=== PATIENT | female | born 1970 ===

== ENCOUNTER 2020-07-04 12:03 | Outpatient (REF) | payer OTHER, SELFPAY ==
--- NOTE | 2020-07-04 12:07 | MM_ITS ---
EXAMINATION: MM SCREENING DIGITAL BREAST TOMOSYNTHESIS, BILATERAL CLINICAL INFORMATION: Screening. Asymptomatic. The lifetime risk of breast cancer based on the Tyrer-Cuzick Model is 7%. COMPARISON: Mammography: 06/29/2019, 06/06/2018 TECHNIQUE: Digital breast tomosynthesis is performed in both the craniocaudal and mediolateral oblique views along with computer-aided detection (CAD). Synthesized 2D images are generated from the tomosynthesis. FINDINGS: There are scattered areas of fibroglandular density (ACR BI-RADS breast composition Category b). There are no significant masses, abnormal calcifications, or other abnormalities. The axilla and skin contours are unremarkable. No significant changes from prior studies. MM/MM tomosynthesis screening BI IMPRESSION: No mammographic evidence of malignancy. ASSESSMENT: BI-RADS 1: Negative RECOMMENDATION: Routine annual mammography screening. This patient's information was entered into a reminder system with a target due date for their next mammogram.
== END 2020-07-04 12:04 | disposition home or self-care (01) ==
LOC: HO.MAMMO 12:03
PROVIDERS: PCP Pediatrics; Visit Provider Pediatrics
DX: Z12.31 Encounter for screening mammogram for malignant neoplasm of breast (principal)
CPT/HCPCS: 77063; 77067

== ENCOUNTER 2021-06-20 16:15 | Emergency (ER) | payer OTHER, SELFPAY ==
[2021-06-20 16:28] VITALS: BP 130/68; PULSE 65; RESP 20; TEMP 36.8; O2SAT 98; BMI 28.7
--- NOTE | 2021-06-20 16:36 | PC.NURSE ---
patient was brought in by ems, unknown ems service- pt was sent to [facility] to be triaged- EMS did not give this triage nurse report.
== END 2021-06-20 21:00 | disposition left against medical advice (07) ==
PROVIDERS: Emergency Provider Emergency Medicine
DX: R10.9 Unspecified abdominal pain (principal)
CPT/HCPCS: 99281; 99282

== ENCOUNTER 2021-06-28 01:38 | Emergency (ER) | payer OTHER, SELFPAY ==
--- NOTE | 2021-06-28 | ECG_ITS ---
Test Reason : ABD PAIN Blood Pressure : / mmHG Vent. Rate : 053 BPM Atrial Rate : 053 BPM P-R Int : 162 ms QRS Dur : 082 ms QT Int : 492 ms P-R-T Axes : 055 063 049 degrees QTc Int : 461 ms Sinus bradycardia RSR' or QR pattern in V1 suggests right ventricular conduction delay Otherwise normal ECG No previous ECGs available Referred By: Catie Hernandez Electronically Signed By:NARGIS MARTI MD
--- NOTE | ~2021-06-28 | CT_ITS ---
EXAMINATION: CT ABDOMEN AND PELVIS WITH CONTRAST CLINICAL INFORMATION: Diffuse abdominal pain COMPARISON: None TECHNIQUE: Multidetector volumetric images were obtained from the superior aspect of the liver through the pubic symphysis following administration 85 mL of Omnipaque 350 intravenous contrast. Sagittal and coronal reformatted images were obtained on the technologist's workstation. Oral contrast: No This CT examination was performed using dose optimization techniques as appropriate, variously including the following: *Automated exposure control *Adjustment of mA and/or kV according to patient size (this includes techniques or standardized protocols for targeted exams where dose is matched to indication/reason for exam; i.e. extremities or head) *Use of iterative reconstruction technique DLP: 849 mGy-cm FINDINGS: LUNG BASES: The visualized lung bases are unremarkable. LIVER, GALLBLADDER, AND BILIARY TREE: The liver is normal in size, shape, and attenuation. No focal hepatic lesion or biliary ductal dilatation is present. Patient is status post cholecystectomy. PANCREAS: Partially atrophic. SPLEEN: Unremarkable. ADRENAL GLANDS: Unremarkable. KIDNEYS AND URETERS: The kidneys are normal in size, shape, and attenuation. No hydronephrosis, hydroureter, or obstructing calculi seen. No perinephric stranding. BLADDER: Unremarkable. GASTROINTESTINAL TRACT: Postoperative changes from gastric bypass surgery. No evidence of bowel obstruction. Assessment for wall thickening in some segments of the colon is limited due to luminal collapse, though no significant pericolonic stranding is seen to strongly suggest a colitis. The appendix is unremarkable. No free fluid or free air is seen. ABDOMINAL WALL: No significant hernia is appreciated. LYMPH NODES: Normal. VASCULAR: Minimal atherosclerotic calcifications are noted. PELVIC VISCERA: Unremarkable. OSSEOUS STRUCTURES: There is facet arthropathy of the lower lumbar spine. CT/CT abdomen pelvis w con IMPRESSION: No acute findings identified in the abdomen/pelvis. Status post gastric bypass surgery.
[2021-06-28 01:41] VITALS: BP 140/90; BP 147/82; PULSE 63; PULSE 70; RESP 18; TEMP 36.5; O2SAT 100; O2SAT 99; BMI 29.8
--- NOTE | 2021-06-28 01:58 | ED.ABDPAIN ---
HPI - Abdominal Pain General Chief Complaint: Abdominal Pain Stated Complaint: vomiting/abd pain Time Seen by Provider: 06/28/21 01:51 Source: patient and EMS Mode of arrival: EMS Limitations: no limitations History of Present Illness HPI narrative: Patient comes emergency room complaining of epigastric pain 10/10, nausea, vomiting, pain started approximately 7 hours ago. Patient states that she has history of gastric bypass which was done in [facility] over 20 years ago. Patient also states that she has a hernia, unclear the location, states she has an appointment pending with Dr. Rosario for next week. Patient denies using marijuana, denies using alcohol. Related Data Previous Rx's Medication Instructions Recorded ondansetron HCl 4 mg tablet 4 mg PO Q6H PRN #14 tab 06/28/21 (Zofran) Allergies Allergy/AdvReac Type Severity Reaction Status Date / Time ibuprofen [From Motrin] Allergy Intermediate RASH Verified 06/28/21 02:10 Motrin Allergy Intermediate Rash Uncoded 06/28/21 02:10 Review of Systems Review of Systems Constitutional : No Weight loss, No Fever, No Chills, No Night Sweats, No Fatigue, No Malaise ENT/Mouth : No Hearing loss, No Ear Pain, No Nasal Congestion, No Sinus Pain, No Hoarseness, No sore throat, No Rhinorrhea, No Swallowing Difficulty Eyes: No Eye Pain, No Swelling, No Redness, No Foreign Body, No Discharge, No Vision Changes Cardiovascular : No Chest Pain, No SOB, No Dyspnea on Exertion, No Orthopnea, No Edema, No Palpitations Respiratory : No Cough, No Sputum, No Wheezing, No Smoke Exposure, No Dyspnea Gastrointestinal : Complaining of nausea and vomiting, No Diarrhea, No Constipation, complaining of severe 10/10 abdominal pain, worse in the epigastric area. No Hematochezia, No Melena Genitourinary : no irregular bleeding, No Dysuria, No Urinary Frequency, No Hematuria, No Urinary Incontinence, No Urgency, No Flank Pain, No Urinary Flow Changes, No Hesitancy Musculoskeletal : No joint pain, No Myalgias, No Joint Swelling Skin : No Skin Lesions, No rash Neuro : No Weakness, No Numbness, No Paresthesias, No Loss of Consciousness, No Dizziness, No Headache Psych : No Anxiety/Panic, No Depression, No SI/HI/AH/VH, No Social Issues, Heme/Lymph: No Bruising, No Bleeding,No Lymphadenopathy Endocrine : No Polyuria, No Polydipsia, No Temperature Intolerance Physical Exam Vital Signs: Vital Signs: Last Vital Signs Temp 98 F 06/28/21 02:20 Pulse 55 06/28/21 03:58 Resp 18 06/28/21 03:58 BP 142/69 H 06/28/21 03:58 Pulse Ox 100 06/28/21 03:58 Body Mass Index 29.8 Const: Other: Appearance: Alert. Oriented X3. In distress due to pain Eyes: Pupils equal, round and reactive to light. ENT: Pharynx normal. Neck: Normal inspection. Neck supple. No lymph nodes noted. No crepitus CVS: Normal heart rate and rhythm. Pulses normal. Normal S1 and S2 Respiratory: No respiratory distress. Breath sounds normal. No Wheezing. No rales Abdomen: Patient in position, cannot straighten up due to pain, complaining of diffuse abdominal pain, worse in the epigastric area, positive guarding common rebound, No rigidity. No distention. Skin: Skin warm and dry. Normal skin color. Normal skin turgor. Extremities: No lower extremity edema. No lower extremity edema. No Lacerations. No Rash Neuro: Oriented X 3. No motor deficit. No sensory deficit. Moving all extermities. No slurred speech. Course Course Course Narrative: Patient feels much better, no longer vomiting. I discussed the labs and imaging with the patient, no acute findings. Patient is very adamant that she did not use marijuana. Urinalysis test pending sign out given to Dr. Hollins [facility] - Abdominal Pain Lab Data Result diagrams: 06/28/21 02:07 06/28/21 02:07 Labs: Lab Results 06/28/21 06/28/21 Range/Units 02:07 02:07 WBC 7.2 (4.8-10.8) X10*3/uL RBC 4.71 (4.20-5.50) X10*6/uL Hgb 11.0 L (12.0-16.0) g/dl Hct 34.7 L (37-47) % MCV 73.7 L (80-98) fL MCH 23.4 L (27.0-33.0) pg MCHC 31.7 (31.0-35.0) g/dl RDW 16.6 H (11.0-16.0) % Plt Count 272 (160-400) X10*3/uL MPV 10.6 (9.4-12.3) fL Immature Gran % (Auto) 0.4 (0.0-0.4) % Neut % (Auto) 80.9 H (45-73) % Lymph % (Auto) 15.5 L (20-40) % [place] % (Auto) 2.9 (2-11) % Eos % (Auto) 0.0 (0-4) % Baso % (Auto) 0.3 (0-2) % Lymph # (Auto) 1.1 L (1.2-4.9) X10*3/uL [place] # (Auto) 0.2 (0.1-1.2) X10*3/uL Eos # (Auto) 0.0 (0.0-0.4) X10*3/uL Baso # (Auto) 0.0 (0.0-0.2) X10*3/uL Abs Immat Gran (auto) 0.03 (0.00-0.03) X10*3/uL Absolute Neuts (auto) 5.8 (2.0-8.3) X10*3/uL Absolute Nucleated RBC 0.000 (0.0-0.012) X10*3/uL Nucleated RBC % (auto) 0.0 (0.0-0.2) /100WBC Sodium 141 (135-145) mmol/L Potassium 3.8 (3.3-5.1) mmol/L Chloride 105 (96-108) mmol/L Carbon Dioxide 22 (22-29) mmol/L Anion Gap 18 (12-20) BUN 11 (9-16) mg/dL Creatinine 0.74 (0.5-1.4) mg/dL Estim Creat Clear Calc 83.6 Estimated GFR > 60 Random Glucose 171 H (60-115) mg/dL Calcium 10.0 (8.4-10.2) mg/dL Total Bilirubin 0.6 (0.0-1.0) mg/dL AST 20 (5-31) U/L ALT 11 (0-31) U/L Alkaline Phosphatase 107 (39-117) U/L Total Protein 7.5 (6.5-8.0) g/dL Albumin 4.3 (3.5-5.0) g/dL Lipase 77 (8-78) U/L Imaging Data CT scan - abdomen: Radiologist's impression: FINDINGS: LUNG BASES: The visualized lung bases are unremarkable.? LIVER, GALLBLADDER, AND BILIARY TREE: The liver is normal in size, shape, and attenuation. No focal hepatic lesion or biliary ductal dilatation is present. Patient is status post cholecystectomy.? PANCREAS: Partially atrophic. SPLEEN: Unremarkable. ADRENAL GLANDS: Unremarkable. KIDNEYS AND URETERS: The kidneys are normal in size, shape, and attenuation. No hydronephrosis, hydroureter, or obstructing calculi seen. No perinephric stranding. BLADDER: Unremarkable. GASTROINTESTINAL TRACT: Postoperative changes from gastric bypass surgery. No evidence of bowel obstruction. Assessment for wall thickening in some segments of the colon is limited due to luminal collapse, though no significant pericolonic stranding is seen to strongly suggest a colitis. The appendix is unremarkable. No free fluid or free air is seen. ABDOMINAL WALL: No significant hernia is appreciated.? LYMPH NODES: Normal. VASCULAR: Minimal atherosclerotic calcifications are noted. PELVIC VISCERA: Unremarkable.? OSSEOUS STRUCTURES: There is facet arthropathy of the lower lumbar spine.? CT/CT abdomen pelvis w con IMPRESSION: No acute findings identified in the abdomen/pelvis. Status post gastric bypass surgery. Discharge Plan Discharge Clinical Impression: Abdominal pain, Nausea & vomiting Patient Disposition: Home, Self-Care Instructions: Abdominal Pain (ED) Additional Instructions: Please follow-up with your primary care physician tomorrow. If you have any worsening or new symptoms, please return to the emergency room or call 911 Prescriptions: New ondansetron HCl [Zofran] 4 mg tablet 4 mg PO Q6H PRN (Reason: nausea and vomiting) Qty: 14 RF: 0 PMFSH Past Medical History Medical History Hernia Hypertension Vitamin B deficiency Vitamin D deficiency Surgical History Gastric bypass status for obesity Social History Social History Alcohol intake: never Patient Tobacco Use Status: Never used Tobacco Use of substances other than those prescribed or required for medical reasons: No Advance Directives: No Advance Directives Information Provided: No
[2021-06-28] MEDS: Morphine Sulfate 4 MG/ML CARTRIDGE IVPUSH ×2 (02:10→03:54)
[2021-06-28 02:11] LABS: MANUAL DIFF FLAG NO
[2021-06-28] MEDS: ondansetron HCL 4 MG/2 ML VIAL IVPUSH (02:11)
[2021-06-28 02:12] LABS: Basophils Percent Auto 0.3 % (0-2); Hematocrit 34.7 % (37-47); Imm Gran Abs Auto 0.03 X10*3/uL (0.00-0.03); Imm Gran Pct Auto 0.4 % (0.0-0.4); Lymphocytes Absolute Auto 1.1 X10*3/uL (1.2-4.9); Lymphocytes Percent Auto 15.5 % (20-40); Mean Corpuscular HGB Conc 31.7 g/dl (31.0-35.0); Mean Corpuscular Hemoglobin 23.4 pg (27.0-33.0); Mean Corpuscular Volume 73.7 fL (80-98); Mean Platelet Volume 10.6 fL (9.4-12.3); Monocytes Absolute Auto 0.2 X10*3/uL (0.1-1.2); Monocytes Percent Auto 2.9 % (2-11); Neutrophils Absolute Auto 5.8 X10*3/uL (2.0-8.3); Neutrophils Percent Auto 80.9 % (45-73); Platelet Count 272 X10*3/uL (160-400); Red Blood Count 4.71 X10*6/uL (4.20-5.50); Red Cell Distribution Width 16.6 % (11.0-16.0); White Blood Count 7.2 X10*3/uL (4.8-10.8)
[2021-06-28 02:20] VITALS: BP 142/60; PULSE 64; RESP 18; TEMP 36.6; O2SAT 98
[2021-06-28 02:42] LABS: Alanine Aminotransferase 11 U/L (0-31); Albumin Level 4.3 g/dL (3.5-5.0); Alkaline Phosphatase 107 U/L (39-117); Anion Gap 18 (12-20); Aspartate Amino Transferase 20 U/L (5-31); Bilirubin Total 0.6 mg/dL (0.0-1.0); Blood Urea Nitrogen 11 mg/dL (9-16); Carbon Dioxide 22 mmol/L (22-29); Chloride 105 mmol/L (96-108); Creatinine Clr Calc Pharmacy 83.6; Estimated Glomerular Filt Rate > 60; Glucose Random 171 mg/dL (60-115); Lipase 77 U/L (8-78); Potassium 3.8 mmol/L (3.3-5.1); Sodium 141 mmol/L (135-145); Total Protein 7.5 g/dL (6.5-8.0)
--- NOTE | 2021-06-28 03:03 | PC.NURSE ---
REPORT TAKEN FROM CLARK GARCIA. FIRST CONTACT WITH PT, RESTING IN BED EYES CLOSED, SKIN PWD RESPIRATIONS EVEN UNLABORED. AWAITING CT SCAN.
[2021-06-28] MEDS: Prochlorperazine Edisylate 10 MG/2 ML VIAL IVPUSH (03:54)
[2021-06-28 03:58] VITALS: BP 142/69; PULSE 55; RESP 18; O2SAT 100
--- NOTE | 2021-06-28 04:00 | PC.NURSE ---
PT REFUSED CT SCAN AWARE, FORCIBLY DRY HEAVING. NO ACTUAL VOMITING. MEDICATED PER NOV. VSS, WILL REATTEMPT CT MOMENTARILY.
[2021-06-28] MEDS: iohexoL 350 MG/ML 100 ML INFUS..BTL 85 ML IV (04:52)
== END 2021-06-28 07:03 | disposition home or self-care (01) ==
PROVIDERS: Emergency Medicine; Emergency Provider Emergency Medicine Emergency Medical Services
DX: R10.9 Unspecified abdominal pain (principal); R11.2 Nausea with vomiting, unspecified; I10 Essential (primary) hypertension; Z98.84 Bariatric surgery status
CPT/HCPCS: 36415; 74177; 80053; 83690; 85025; 93005; 96374; 96375; 96376; 99284; 99285; J2270; J2405; Q9967

== ENCOUNTER 2021-08-04 07:40 | Outpatient (REF) | payer OTHER, SELFPAY ==
--- NOTE | ~2021-08-04 | MM_ITS ---
EXAMINATION: MM SCREENING DIGITAL BREAST TOMOSYNTHESIS, BILATERAL CLINICAL INFORMATION: Screening. Asymptomatic. The lifetime risk of breast cancer based on the Tyrer-Cuzick Model is 16%. COMPARISON: Mammography: 07/04/2020, 06/29/2019, 06/06/2018 TECHNIQUE: Digital breast tomosynthesis is performed in both the craniocaudal and mediolateral oblique views along with computer-aided detection (CAD). Synthesized 2D images are generated from the tomosynthesis. FINDINGS: There are scattered areas of fibroglandular density (ACR BI-RADS breast composition Category b). There are no significant masses, abnormal calcifications, or other abnormalities. Breast tissue composition borders on predominantly fatty. Background stromal markings are stable. No developing density. No significant changes. MM/MM tomosynthesis screening BI IMPRESSION: No mammographic evidence of malignancy. ASSESSMENT: BI-RADS 1: Negative RECOMMENDATION: Routine annual mammography screening. This patient's information was entered into a reminder system with a target due date for their next mammogram.
== END 2021-08-04 07:41 | disposition home or self-care (01) ==
LOC: HO.MAMMO 07:40
PROVIDERS: Visit Provider Pediatrics
DX: Z12.31 Encounter for screening mammogram for malignant neoplasm of breast (principal)
CPT/HCPCS: 77063; 77067

== ENCOUNTER 2021-08-14 11:32 | Outpatient (REF) | payer OTHER, SELFPAY ==
--- NOTE | ~2021-08-14 | XR_ITS ---
EXAMINATION: XR SCOLIOSIS CLINICAL INFORMATION: Sacral coccygeal disorders COMPARISON: None TECHNIQUE: A single view of the thoracolumbar spine is obtained. FINDINGS: There are no intrinsic vertebral anomalies. There is no significant lateral curvature of the thoracolumbar spine.. There is no significant pelvic tilt. Risser 5. There are surgical clips in the right upper quadrant from prior cholecystectomy. The visualized portion of the lungs is clear. XR/XR scoliosis survey IMPRESSION: No significant scoliosis.
--- NOTE | ~2021-08-14 | XR_ITS ---
EXAMINATION: XR SACRUM AND COCCYX CLINICAL INFORMATION: Sacrococcygeal disorders COMPARISON: 08/05/2018 TECHNIQUE: 3 views of the sacrum/coccyx. FINDINGS: There is no fracture. The sacrum appears intact. The coccyx is well aligned. The sacroiliac joints are symmetric. No abnormal sclerosis. No fusion. The pubic symphysis is well aligned. Normal bowel gas pattern. XR/XR sacrum coccyx min 2V IMPRESSION: Unremarkable examination.
--- NOTE | ~2021-08-14 | XR_ITS ---
EXAMINATION: XR KNEE, RIGHT XR HIP, RIGHT CLINICAL INFORMATION: Pain. COMPARISON: 03/09/2013 TECHNIQUE: 2 views of the right hip. 4 views of the right knee. This includes AP upright view. FINDINGS: Right hip: No fracture or dislocation. The hip is well aligned. The joint space is maintained with mild subchondral sclerosis. The visualized right pelvis is intact. Normal bowel gas pattern. Right knee: No fracture or subluxation. Compartmental joint spaces are maintained. No joint effusion. Tiny marginal osteophytes of the patellofemoral compartment. XR/XR knee RT 4V IMPRESSION: Mild degenerative change of the right hip and right knee.
--- NOTE | ~2021-08-14 | XR_ITS ---
EXAMINATION: XR KNEE, RIGHT XR HIP, RIGHT CLINICAL INFORMATION: Pain. COMPARISON: 03/09/2013 TECHNIQUE: 2 views of the right hip. 4 views of the right knee. This includes AP upright view. FINDINGS: Right hip: No fracture or dislocation. The hip is well aligned. The joint space is maintained with mild subchondral sclerosis. The visualized right pelvis is intact. Normal bowel gas pattern. Right knee: No fracture or subluxation. Compartmental joint spaces are maintained. No joint effusion. Tiny marginal osteophytes of the patellofemoral compartment. XR/XR hip RT min 2V IMPRESSION: Mild degenerative change of the right hip and right knee.
== END 2021-08-14 11:33 | disposition home or self-care (01) ==
LOC: HO.XRAY 11:32
PROVIDERS: Absent Provider Pediatrics; PCP Pediatrics; Visit Provider Emergency Medicine
DX: M25.551 Pain in right hip (principal); M25.561 Pain in right knee; M53.3 Sacrococcygeal disorders, not elsewhere classified
CPT/HCPCS: 72082; 72220; 73502; 73564

== ENCOUNTER 2021-09-13 08:51 | Emergency (ER) | payer OTHER, SELFPAY ==
--- NOTE | ~2021-09-13 | CT_ITS ---
EXAMINATION: CT ABDOMEN AND PELVIS WITH CONTRAST CLINICAL INFORMATION: Abdominal pain. History of gastric bypass 20 years ago. COMPARISON: CT abdomen and pelvis with contrast 06/28/2021. TECHNIQUE: Multidetector volumetric images were obtained from the superior aspect of the liver through the pubic symphysis following administration 85 mL of Omnipaque 350 intravenous contrast. Sagittal and coronal reformatted images were obtained on the technologist's workstation. Oral contrast: No This CT examination was performed using dose optimization techniques as appropriate, variously including the following: *Automated exposure control *Adjustment of mA and/or kV according to patient size (this includes techniques or standardized protocols for targeted exams where dose is matched to indication/reason for exam; i.e. extremities or head) *Use of iterative reconstruction technique DLP: 525 mGy-cm FINDINGS: LUNG BASES: The lung bases are clear. The heart size is normal. There is a small hiatal hernia present. LIVER, GALLBLADDER, AND BILIARY TREE: The liver is normal in size, shape, and attenuation. No focal hepatic lesion or biliary ductal dilatation is present. The gallbladder has been surgically removed. PANCREAS: The pancreas is homogeneous in density and normal size. SPLEEN: Unremarkable. ADRENAL GLANDS: Unremarkable. KIDNEYS AND URETERS: The kidneys are normal in size, shape, and attenuation. No hydronephrosis, hydroureter, or calculi seen. No perinephric stranding. BLADDER: Unremarkable. GASTROINTESTINAL TRACT: There is remote gastric bypass surgical changes with retained food or soft tissue density at the gastrojejunal anastomosis, best visualized on axial image 27/2. The small bowel loops are normal caliber. Appendix is not visualized. There is mild thickening of the sigmoid colon with minimal pericolic fat stranding, likely limited colitis. No diverticuli visualized to suspect any diverticulitis Rest of the colon appears unremarkable. No free air or free fluid seen. ABDOMINAL WALL: No evidence of hernia. LYMPH NODES: No abnormal lymph nodes seen. VASCULAR: Unremarkable. PELVIC VISCERA: Unremarkable. OSSEOUS STRUCTURES: No aggressive lytic or sclerotic process seen. CT/CT abdomen pelvis w con IMPRESSION: Nonspecific mild mural thickening distal sigmoid colon, likely colitis of inflammatory or infectious etiology. Correlate with clinical exam. Evidence of remote gastric bypass surgery changes. Soft tissue density seen in the gastrojejunal anastomosis question hypertrophied mucosa or food residue. Correlate with clinical exam or gastroscopy/GI study Cholecystectomy.
[2021-09-13 09:10] VITALS: BP 152/88; PULSE 65; O2SAT 99
[2021-09-13 09:12] VITALS: BP 134/61; PULSE 60; RESP 15; TEMP 36.6; O2SAT 100; BMI 28.3
--- NOTE | 2021-09-13 09:21 | ED.ABDPAIN ---
HPI - Abdominal Pain General Chief Complaint: Abdominal Pain Stated Complaint: ABD PAIN D/T HERNIA PER PT Time Seen by Provider: 09/13/21 09:13 Source: patient and EMS Mode of arrival: ambulatory Limitations: no limitations History of Present Illness HPI narrative: This is a 51 years old female presented to the emergency department with a chief complaint of abdominal pain nausea vomiting since this morning , denies any fever diarrhea any other systemic symptoms. She has history of gastric bypass done 20 years ago elsewhere MD elicited complaint: abdominal pain Pertinent past history: other (Gastric bypass) Onset (ago): hour(s) (6) Pain Consistency: constant Location: diffuse Quality: cramping Radiation: none Exacerbating factors: nothing Relieving factors: nothing Associated symptoms: nausea and vomiting Related Data Previous Rx's Medication Instructions Recorded ondansetron HCl 4 mg tablet 4 mg PO Q6H PRN #14 tab 06/28/21 (Zofran) omeprazole magnesium 20 mg 20 mg PO DAILY #30 tab 09/13/21 tablet,delayed release (Prilosec OTC) ondansetron 4 mg disintegrating 4 mg PO Q8H 4 Days #12 tab 09/13/21 tablet Allergies Allergy/AdvReac Type Severity Reaction Status Date / Time ibuprofen [From Motrin] Allergy Intermediate RASH Verified 06/28/21 02:10 Motrin Allergy Intermediate Rash Uncoded 06/28/21 02:10 Review of Systems Review of Systems Yes all other systems are reviewed and are negative Cardiovascular: Reports no additional cardiovascular complaints Respiratory: Reports no additional respiratory complaints Gastrointestinal: Denies diarrhea, Denies loose stools, Reports nausea, Reports vomiting and Denies hematemesis Physical Exam Vital Signs: Vital Signs: Last Vital Signs Temp 98 F 09/13/21 09:12 Pulse 56 09/13/21 13:43 Resp 15 09/13/21 13:43 BP 140/70 H 09/13/21 13:43 Pulse Ox 98 09/13/21 13:43 BMI result Body Mass Index 28.3 Const: General: alert, awake, acute distress mild and anxious HENMT: Head: Yes normal to inspection Face and sinus: Yes normal facial exam Mouth: Normal oral and palatal mucosa present Throat: Yes posterior oropharynx normal Neck: Neck: Yes normal visual inspection and Yes full ROM Thyroid: Thyroid normal Chest: Chest palpation & inspection: normal inspection of the chest Resp: Effort & Inspection: normal respiratory effort Auscultation: clear to auscultation bilaterally Cardio: Jugular venous distension: no JVD Palpation: normal PMI Rate: regular rate Rhythm: regular rhythm GI: Inspection: Yes normal to inspection Palpation (GI): Soft to palpation, not firm, nontender and no guarding Skin: General skin exam: no rashes or lesions noted, elasticity normal and turgor normal Lesions: no lesions Rashes: no rashes Course Reevaluation(s) Reevaluation #1: Patient is doing much better, she is tolerating p.o. fluids well, labs are within normal limit, CT scan showed mild mural thickening of the distal colon nonspecific, but in the absence of fever elevated white count I do not think we need to give this lady antibiotic,also there is a ? of food residue in the GJ anastomosis but she is tolerating po well at this time Her vital signs are stable,she is afebrile,she is not tachycardic Again at this point she is feeling much better she wants to go home she is tolerating fluids well. I gave abdominal pain instruction.She is very conformable with the plan of care,I will prescribe prilosed and zofran as well MDM - Abdominal Pain MDM Narrative Medical decision making narrative: We will place an IV I would rather antiemetic, re-evaluate Lab Data Result diagrams: 09/13/21 09:36 09/13/21 09:36 Labs: Lab Results 09/13/21 09/13/21 09/13/21 Range/Units 09:36 09:36 09:36 WBC 5.0 (4.8-10.8) X10*3/uL RBC 5.04 (4.20-5.50) X10*6/uL Hgb 11.7 L (12.0-16.0) g/dl Hct 37.1 (37.0-47.0) % MCV 73.6 L (80.0-98.0) fL MCH 23.2 L (27.0-33.0) pg MCHC 31.5 (31.0-35.0) g/dl RDW 17.6 H (11.0-16.0) % Plt Count 305 (160-400) X10*3/uL MPV 10.9 (9.4-12.3) fL Immature Gran % (Auto) 0.2 (0.0-0.4) % Neut % (Auto) 75.6 H (45-73) % Lymph % (Auto) 20.4 (20-40) % [place] % (Auto) 3.0 (2-11) % Eos % (Auto) 0.2 (0-4) % Baso % (Auto) 0.6 (0-2) % Lymph # (Auto) 1.0 L (1.2-4.9) X10*3/uL [place] # (Auto) 0.2 (0.1-1.2) X10*3/uL Eos # (Auto) 0.0 (0.0-0.4) X10*3/uL Baso # (Auto) 0.0 (0.0-0.2) X10*3/uL Abs Immat Gran (auto) 0.01 (0.00-0.03) X10*3/uL Absolute Neuts (auto) 3.8 (2.0-8.3) x10*3/uL Absolute Nucleated RBC 0.000 (0.0-0.012) X10*3/uL Nucleated RBC % (auto) 0.0 (0.0-0.2) /100WBC Sodium 142 (135-145) mmol/L Potassium 3.7 (3.3-5.1) mmol/L Chloride 106 (96-108) mmol/L Carbon Dioxide 26 (22-29) mmol/L Anion Gap 14 (12-20) BUN 11 (9-16) mg/dL Creatinine 0.72 (0.5-1.4) mg/dL Estim Creat Clear Calc 83.9 Estimated GFR > 60 Random Glucose 158 H (60-115) mg/dL Calcium 10.2 (8.4-10.2) mg/dL Total Bilirubin 0.5 (0.0-1.0) mg/dL AST 24 (5-31) U/L ALT 13 (0-31) U/L Alkaline Phosphatase 116 (39-117) U/L Total Protein 7.9 (6.5-8.0) g/dL Albumin 4.4 (3.5-5.0) g/dL Lipase 61 (8-78) U/L COVID-19 (BILL) Negative (Negative) COVID-19 Clin Com See Note Imaging Data CT scan - abdomen: Radiologist's impression: diverticulitis Rest of the colon appears unremarkable. No free air or free fluid seen. ABDOMINAL WALL: No evidence of hernia.? LYMPH NODES: No abnormal lymph nodes seen. VASCULAR: Unremarkable. PELVIC VISCERA: Unremarkable.? OSSEOUS STRUCTURES: No aggressive lytic or sclerotic process seen.? CT/CT abdomen pelvis w con IMPRESSION: Nonspecific mild mural thickening distal sigmoid colon, likely colitis of inflammatory or infectious etiology. Correlate with clinical exam. ? Evidence of remote gastric bypass surgery changes. Soft tissue density seen in the gastrojejunal anastomosis question hypertrophied mucosa or food residue. Correlate with clinical exam or gastroscopy/GI study ? Cholecystectomy.? ? ? Dictated By: Gavin Julian MD Signed By: <Electronically signed by Gavin Julian,? Discharge Plan Discharge Clinical Impression: Abdominal pain Patient Disposition: Home, Self-Care Instructions: Abdominal Pain (ED) Additional Instructions: Clear liquid diet times 24 hours, return to the emergency room if you worse review of a fever a few vomiting, please call your primary care physician today arrange a follow-up appointment in 2-3 days Prescriptions: New omeprazole magnesium [Prilosec OTC] 20 mg tablet,delayed release (DR/EC) 20 mg PO DAILY Qty: 30 RF: 0 ondansetron 4 mg tablet,disintegrating 4 mg PO Q8H 4 Days Qty: 12 RF: 0 No Action ondansetron HCl [Zofran] 4 mg tablet 4 mg PO Q6H PRN (Reason: nausea and vomiting) Qty: 14 RF: 0 Interventions: ED Discharge Assessment Last Done: 09/13/21 14:12 Discharge Date/Time: 09/13/21 14:14 [facility] Past Medical History Medical History Hernia Hypertension Vitamin B deficiency Vitamin D deficiency Surgical History Gastric bypass status for obesity Social History Social History Alcohol intake: never Patient Tobacco Use Status: Never used Tobacco Advance Directives: No Advance Directives Information Provided: No Patient : No
[2021-09-13 09:42] LABS: MANUAL DIFF FLAG NO
[2021-09-13 09:45] LABS: Basophils Percent Auto 0.6 % (0-2); Eosinophils Percent Auto 0.2 % (0-4); Hematocrit 37.1 % (37.0-47.0); Hemoglobin 11.7 g/dl (12.0-16.0); Imm Gran Abs Auto 0.01 X10*3/uL (0.00-0.03); Imm Gran Pct Auto 0.2 % (0.0-0.4); Lymphocytes Percent Auto 20.4 % (20-40); Mean Corpuscular HGB Conc 31.5 g/dl (31.0-35.0); Mean Corpuscular Hemoglobin 23.2 pg (27.0-33.0); Mean Corpuscular Volume 73.6 fL (80.0-98.0); Mean Platelet Volume 10.9 fL (9.4-12.3); Monocytes Absolute Auto 0.2 X10*3/uL (0.1-1.2); Neutrophils Absolute Auto 3.8 x10*3/uL (2.0-8.3); Neutrophils Percent Auto 75.6 % (45-73); Platelet Count 305 X10*3/uL (160-400); Red Blood Count 5.04 X10*6/uL (4.20-5.50); Red Cell Distribution Width 17.6 % (11.0-16.0)
[2021-09-13] MEDS: diphenhydrAMINE HCL 50 MG/ML VIAL 25 MG IVPUSH (09:55)
[2021-09-13] MEDS: LORazepam 2 MG/ML VIAL 1 MG IVPUSH (09:56)
[2021-09-13] MEDS: Metoclopramide HCl 10 MG/2 ML VIAL IVPUSH (09:56)
[2021-09-13] MEDS: 0.9 % Sodium Chloride 1,000 ML 999 ML IVCONT (09:56)
[2021-09-13 09:59] LABS: Alanine Aminotransferase 13 U/L (0-31); Albumin Level 4.4 g/dL (3.5-5.0); Alkaline Phosphatase 116 U/L (39-117); Anion Gap 14 (12-20); Aspartate Amino Transferase 24 U/L (5-31); Bilirubin Total 0.5 mg/dL (0.0-1.0); Blood Urea Nitrogen 11 mg/dL (9-16); Calcium 10.2 mg/dL (8.4-10.2); Carbon Dioxide 26 mmol/L (22-29); Chloride 106 mmol/L (96-108); Creatinine Clr Calc Pharmacy 83.9; Estimated Glomerular Filt Rate > 60; Glucose Random 158 mg/dL (60-115); Lipase 61 U/L (8-78); Potassium 3.7 mmol/L (3.3-5.1); Sodium 142 mmol/L (135-145); Total Protein 7.9 g/dL (6.5-8.0)
[2021-09-13 10:01] LABS: COVID-19 Test Negative (Negative); IDNOW Serial# 9DD0AD1C
[2021-09-13] MEDS: Morphine Sulfate 4 MG/ML CARTRIDGE IVPUSH (10:27)
[2021-09-13 10:31] VITALS: BP 134/55; PULSE 70; RESP 19; O2SAT 98
--- NOTE | 2021-09-13 10:37 | PC.NURSE ---
medicated for pain, appears more comfortable but reports pain is severe, resting w eyes closed
[2021-09-13] MEDS: iohexoL 350 MG/ML 100 ML INFUS..BTL 85 ML IV (11:06)
[2021-09-13 11:31] VITALS: BP 109/49; PULSE 72; RESP 19; O2SAT 98
[2021-09-13] MEDS: oxyCODONE HCl Immed Release 5 MG TABLET 10 MG PO (13:31)
[2021-09-13 13:43] VITALS: BP 140/70; PULSE 56; RESP 15; O2SAT 98
== END 2021-09-13 14:14 | disposition home or self-care (01) ==
PROVIDERS: Emergency Provider Emergency Medicine
DX: R10.9 Unspecified abdominal pain (principal); I10 Essential (primary) hypertension; Z98.84 Bariatric surgery status; Z20.822 Contact with and (suspected) exposure to COVID-19
CPT/HCPCS: 36415; 74177; 80053; 83690; 85025; 87635; 96361; 96374; 96375; 99284; J1200; J2060; J2270; J2765; Q9967

== ENCOUNTER 2021-10-27 16:39 | Outpatient (REF) | payer OTHER, SELFPAY ==
--- NOTE | ~2021-10-27 | XR_ITS ---
EXAMINATION: XR BILATERAL HIPS WITH AP PELVIS CLINICAL INFORMATION: Hip pain. COMPARISON: None TECHNIQUE: AP view of the pelvis and single views of each hip were obtained. FINDINGS: There is normal symmetry of bilateral hip joints and SI joints. No visible pelvic fracture. The soft tissues are normal. XR/XR hip BI w PEL1V IMPRESSION: Unremarkable AP pelvis and hip exam.
== END 2021-10-27 16:40 | disposition home or self-care (01) ==
LOC: HO.XRAY 16:39
PROVIDERS: PCP Pediatrics; Visit Provider Pediatrics
DX: M25.551 Pain in right hip (principal); M25.552 Pain in left hip
CPT/HCPCS: 73521

== ENCOUNTER → 2021-11-22 07:43 | Outpatient (BNVA) | payer OTHER, SELFPAY | PROVIDERS: PCP Pediatrics; Referring Provider Pediatrics; Visit Provider Physician Assistant | DX: Z12.11 Encounter for screening for malignant neoplasm of colon (principal) | CPT/HCPCS: 99202 ==

== ENCOUNTER → 2022-06-06 10:16 | Outpatient (BNVA) | payer OTHER, SELFPAY | PROVIDERS: PCP Pediatrics; Referring Provider Pediatrics; Visit Provider Internal Medicine | DX: R07.2 Precordial pain (principal); R06.02 Shortness of breath | CPT/HCPCS: 93005; 99202 ==

== ENCOUNTER → 2022-07-16 08:08 | Outpatient (REF) | payer OTHER, SELFPAY ==
--- NOTE | 2022-07-16 08:12 | CA_ITS ---
Transthoracic Echocardiogram Patient (Last, First, Middle): Genet Figueroa N Gender: Female Date of : 1970 Age: 52 Procedure Date: 07/16/2022 Procedure Type: Transthoracic Echocardiogram Location: OP Height: 157.48 cm Weight: 67.13 kg BSA: 1.68 m2 Heart Rate: 49 bpm BP: 120 / 80 mmHg Director Of Software Development: PATTY Drake MD: Santos Moreland MD Freight Car Builder: Sergo Sloan MD Symptoms: R06.02 - Shortness of breath Study Quality: Good ECG Rhythm: Bradycardia Conclusions: - 1. Normal LV systolic function with grade 1 diastolic dysfunction 2. Normal cardiac valvular Doppler 3. Normal RV systolic pressure 4. No gross pericardial effusion Findings Left Ventricle Normal left ventricular size, thickness, and systolic function. The visually estimated ejection fraction is between 55-60%. Spectral Doppler is indicative of an impaired relaxation filling pattern. Evidence suggests grade I (mild) diastolic dysfunction. Right Ventricle Normal right ventricular cavity size and systolic function. Atria Both atria are normal in size. There is lipomatous hypertrophy of the interatrial septum. There is no evidence of interatrial shunt. Aortic Valve Normal aortic valve structure and function. There is no aortic valve stenosis. There is no aortic valve regurgitation. Mitral Valve Normal mitral valve structure and function. There is trace mitral valve regurgitation. There is no mitral valve stenosis. Pulmonic Valve The pulmonic valve is likely normal. There is trace pulmonic valve regurgitation. Tricuspid Valve Normal tricuspid valve structure. There is mild tricuspid valve regurgitation. The right ventricular systolic pressure is normal. The right ventricular systolic pressure is 18 mmHg. Normal right atrial pressure. There is no evidence of pulmonary hypertension. Great Vessels All visible segments of the aorta are normal in size. The pulmonary artery was not well visualized. Venous The inferior vena cava is normal in size and collapses greater than 50% with inspiration. Pericardium/Pleural There is no evidence of pericardial effusion. Prior Study Comparison No prior study available for comparison. Measurements 2D Linear Measurements IVSd: 1.05 0.6-0.9/0.6-1.0 cm LVIDd: 4.52 3.9-5.3/4.2-5.9 cm LVIDd Index: 2.69 2.4-3.2/2.2-3.1 cm/m2 LVIDs: 2.64 2.0-3.6 cm LVPWd: 0.86 0.7-1.1 cm LA Diam: 3.90 2.7-3.8/3.0-4.0 cm LAIDs Index: 2.32 1.5-2.3 cm/m2 LV Mass: 179.93 67-162/88-224 g LV Mass Index: 107.10 43-95/49-115 g/m2 LVOT Diam: 2.00 3.0+(-)1.3 cm 2D Systolic Function EF 4C: 56.90 >55% EF 2C: 63.20 >55% EF BiP: 59.70 >55% Mitral Valve MV Pk E: 1.07 MV PK A: 0.65 MV Decel Time: 170.00 E/A: 1.70 E'Lateral: 12.60 E'Medial: 9.79 E/E' Med: 10.90 E/E' Lat: 8.50 PHT: 50.00 MVA PHT: 4.40 Decel Stutsman: 6.29 Aortic Valve AoV Pk Luis: 1.05 AoV Mn Luis: 0.74 AoV VTI: 0.26 AoV Pk Grad: 4.00 Aov Mn Grad: 2.00 SHERMAN Cont.VTI: 2.18 LVOT LVOT Pk Luis: 0.78 LVOT Mn Luis: 0.53 LVOT VTI: 0.18 LVOT Pk Grad: 2.00 LVOT Mn Grad: 1.00 LVOT Diam: 2.00 LVOT Area: 3.14 Diastolic Function MV Pk E: 1.07 MV Pk A: 0.65 E/A: 1.70 E'Medial: 9.79 E/E' Med: 10.90 E' Laterial: 12.60 E/E' Lat: 8.50 Right Ventricle TAPSE (mm): 26.00 TVS' Luis: 11.40 Tricuspid Valve TR Pk Luis: 1.95 TR Pk Grad: 15.00 RA Press: 3.00 RVSP: 18.00 Great Vessels Aorta Sinus of Valsalva: 3.00 2.0-3.5 cm Ao Asc: 2.90 2.1-3.4 cm Pulmonary Valve PV Pk Luis: 0.73 Peak PV Grad: 2.00 Updated in Other Vendor System with Status of Final Sergo Sloan MD electronically signed on 07/16/2022 10:35:45 AM with status of Final
--- NOTE | 2022-07-16 08:12 | CA_ITS ---
Acquisition Time: 2022-07-16 10:57:26 Total Exercise Time: 00:05:00 Test Indications: R06.02 Shortness of breath Medications: See H Protocol: KRISTEN Max HR: 142 BPM 85% of Pred: 167 BPM Max BP: 152/076 mmHG Max Work Load: 7.0 METS Exercise stress test with exercise 5 min of Kristen protocol, achieving 85% MPHR, with fatigue and request to stop, without anginal symptoms, with rare isolated PVC, with normotensive response to exercise, without EKG changes meeting criteria for ischemia. Test reviewed with Dr Yee. Referred By: Santos Moreland Overread By: ROBERT HELLER
== END ==
LOC: HO.CARD 08:08
PROVIDERS: PCP Pediatrics; Visit Provider Internal Medicine
DX: R00.2 Palpitations (principal); R06.02 Shortness of breath
CPT/HCPCS: 93017; 93306

== ENCOUNTER → 2022-07-25 13:02 | Outpatient (BNVA) | payer OTHER, SELFPAY | PROVIDERS: PCP Pediatrics; Referring Provider Pediatrics; Visit Provider Nurse Practitioner Family | DX: R07.2 Precordial pain (principal); R00.2 Palpitations; R06.02 Shortness of breath | CPT/HCPCS: 99212 ==

== ENCOUNTER 2022-08-06 09:45 | Outpatient (REF) | payer OTHER, SELFPAY ==
--- NOTE | ~2022-08-06 | MM_ITS ---
EXAMINATION: MM SCREENING DIGITAL BREAST TOMOSYNTHESIS, BILATERAL CLINICAL INFORMATION: Screening. Asymptomatic. The lifetime risk of breast cancer based on the Tyrer-Cuzick Model is 13%. COMPARISON: Mammography: 08/04/2021, 07/04/2020, 06/29/2019 TECHNIQUE: Digital breast tomosynthesis is performed in both the craniocaudal and mediolateral oblique views along with computer-aided detection (CAD). Synthesized 2D images are generated from the tomosynthesis. FINDINGS: There are scattered areas of fibroglandular density (ACR BI-RADS breast composition Category b). There are no significant masses, abnormal calcifications, or other abnormalities. Parenchymal pattern is similar to prior studies. No developing density. No significant changes. MM/MM tomosynthesis screening BI IMPRESSION: No mammographic evidence of malignancy. ASSESSMENT: BI-RADS 1: Negative RECOMMENDATION: Routine annual mammography screening. This patient's information was entered into a reminder system with a target due date for their next mammogram.
== END 2022-08-06 09:46 | disposition home or self-care (01) ==
LOC: HO.MAMMO 09:45
PROVIDERS: PCP Pediatrics; Visit Provider Pediatrics
DX: Z12.31 Encounter for screening mammogram for malignant neoplasm of breast (principal)
CPT/HCPCS: 77063; 77067

== ENCOUNTER 2022-12-20 09:39 | Outpatient (REF) | payer OTHER, SELFPAY ==
--- NOTE | ~2022-12-20 | XR_ITS ---
EXAMINATION: XR SHOULDER, LEFT CLINICAL INFORMATION: Acute left shoulder pain COMPARISON: None available. TECHNIQUE: AP external rotation, Grashey, scapular Y, and axillary views of the left shoulder. FINDINGS: No acute fracture or dislocation. Moderate acromioclavicular joint degenerative changes. Mild degenerative changes of the glenohumeral joint. No soft tissue abnormality. XR/XR shoulder LT min 2V IMPRESSION: Mild to moderate degenerative changes of the left shoulder joint.
== END 2022-12-20 09:40 | disposition home or self-care (01) ==
LOC: HO.XRAY 09:39
PROVIDERS: PCP Pediatrics; Visit Provider Family Medicine
DX: M25.512 Pain in left shoulder (principal)
CPT/HCPCS: 73030

== ENCOUNTER 2023-08-07 09:52 | Outpatient (REF) | payer OTHER, SELFPAY | END 2023-08-07 09:53 | disposition home or self-care (01) | LOC: HO.MAMMO 09:52 | PROVIDERS: PCP Pediatrics; Visit Provider Pediatrics | DX: Z12.31 Encounter for screening mammogram for malignant neoplasm of breast (principal) | CPT/HCPCS: 77063; 77067 ==

== ENCOUNTER → 2023-08-07 10:30 | Outpatient (BNV) | payer OTHER, SELFPAY | PROVIDERS: PCP Pediatrics; Visit Provider Radiology Diagnostic Radiology | DX: Z12.31 Encounter for screening mammogram for malignant neoplasm of breast (principal) | CPT/HCPCS: 77063; 77067 ==

== ENCOUNTER 2023-10-30 08:01 | Outpatient (REF) | payer OTHER, SELFPAY ==
--- NOTE | ~2023-10-30 | MM_ITS ---
EXAMINATION: BONE DENSITOMETRY CLINICAL INDICATION: History of gastric bypass, vitamin D deficiency. COMPARISON: This is the patient's baseline examination. TECHNIQUE: Using a Pretty Simple DXA System (software version: 13.1) manufactured by [employer], dual-energy x-ray absorptiometry was performed of the lumbar spine and left hip. The images are of good technical quality. Summary results are attached. FINDINGS: LEFT FEMUR, NECK: BMD 0.750 g/cm2, Z-score -1.0, T-score -2.1, osteopenia. LEFT FEMUR, TOTAL: BMD 0.630 g/cm2, Z-score -2.3, T-score -3.0, osteoporosis. AP SPINE L1-L4: BMD 1.010 g/cm2, Z-score -0.6, T-score -1.4, osteopenia. IDENTIFIED RISK FACTORS: Menopause, current smoker, partial gastrectomy/secondary osteoporosis. HISTORY OF FRACTURE: None listed. MEDICATIONS: Multivitamin, vitamin D. MM/XR DEXA axial skeleton IMPRESSION: 1. DIAGNOSIS: Osteoporosis based on the lowest T-score value of -3.0 in the total femur applying World Health Organization criteria. 2. 10-YEAR FRACTURE RISK PREDICTION, FRAX: According to the guidelines, FRAX calculation should only be performed on patients in the osteopenia bone density category. Therefore, FRAX was not performed on this patient. 3. Treatment Recommendations: NOF guidelines recommend consideration for treatment in postmenopausal women and men age 50 and older presenting with the following: -A hip or vertebral (clinical or morphometric) fracture. -T-score less than or equal to -2.5 at the femoral neck or spine after appropriate evaluation to exclude secondary causes. -Low bone mass at the hip or spine and a 10-year fracture probability by FRAX of greater than or equal to 3% for hip fracture or greater than or equal to 20% for major osteoporotic fracture based on the [place] adapted WHO algorithm. 4. Other Recommendations: All treatment decisions require clinical judgment and consideration of individual patient factors, including patient preferences, comorbidities, previous drug use, risk factors not captured in the FRAX model (e.g. frailty, falls, vitamin D deficiency, increased bone turnover, interval significant decline in bone density) and possible under or overestimation of fracture risk by FRAX. Additional medical evaluation for secondary cause of low bone mineral density may be appropriate. FUTURE SCAN RECOMMENDATION: People with diagnosed cases of osteoporosis or at high risk for fracture should have regular bone mineral density tests. For patients eligible for Medicare, routine testing is allowed once every 2 years. The testing frequency can be increased to one year for patients who have rapidly progressing disease, those who are receiving or discontinuing medical therapy to restore bone mass, or have additional risk factors.
== END 2023-10-30 08:02 | disposition home or self-care (01) ==
LOC: HO.MAMMO 08:01
PROVIDERS: PCP Pediatrics; Visit Provider Pediatrics
DX: Z13.820 Encounter for screening for osteoporosis (principal); E55.9 Vitamin D deficiency, unspecified; M51.9 Unspecified thoracic, thoracolumbar and lumbosacral intervertebral disc disorder; Z98.84 Bariatric surgery status; Z78.0 Asymptomatic menopausal state
CPT/HCPCS: 77080

== ENCOUNTER 2023-11-26 08:59 | Outpatient (REF) | payer OTHER, SELFPAY ==
--- NOTE | ~2023-11-26 | XR_ITS ---
EXAMINATION: XR SHOULDER, LEFT CLINICAL INFORMATION: Pain. Fall 3 weeks ago. COMPARISON: Left shoulder x-rays December 20, 2022 TECHNIQUE: Four views of the left shoulder. FINDINGS: Visualized portion of the proximal left humerus demonstrate no fracture. Humeral head demonstrates good articulation the glenoid fossa. There are mild to moderate degenerative changes of the glenohumeral and acromioclavicular joints. Visualized left-sided ribs and lung parenchyma are unremarkable. XR/XR shoulder LT min 2V IMPRESSION: Mild degenerative changes of the left shoulder without fracture or dislocation.
== END 2023-11-26 09:00 | disposition home or self-care (01) ==
LOC: HO.HHCX 08:59
PROVIDERS: Visit Provider Nurse Practitioner Family
DX: M25.512 Pain in left shoulder (principal)
CPT/HCPCS: 73030

== ENCOUNTER 2023-11-27 08:59 | Emergency (ER) | payer OTHER, SELFPAY ==
--- NOTE | ~2023-11-27 | CT_ITS ---
EXAMINATION: CT ABDOMEN AND PELVIS WITH CONTRAST CLINICAL INFORMATION: Abdominal pain. History of gastric bypass COMPARISON: 09/13/2021 TECHNIQUE: Multidetector volumetric images were obtained from the superior aspect of the liver through the pubic symphysis following administration 85 mL of Omnipaque 350 intravenous contrast. Sagittal and coronal reformatted images were obtained on the technologist's workstation. Oral contrast: No This CT examination was performed using dose optimization techniques as appropriate, variously including the following: *Automated exposure control *Adjustment of mA and/or kV according to patient size (this includes techniques or standardized protocols for targeted exams where dose is matched to indication/reason for exam; i.e. extremities or head) *Use of iterative reconstruction technique DLP: 429 mGy-cm FINDINGS: LUNG BASES: The visualized lung bases are unremarkable. LIVER, GALLBLADDER, AND BILIARY TREE: There is slight ectasia of the intrahepatic biliary tree in this patient is status post cholecystectomy, as was seen on 09/13/2021, perhaps slightly more apparent today. No focal hepatic masses are seen. The gallbladder is surgically absent. PANCREAS: Unremarkable. SPLEEN: Unremarkable. ADRENAL GLANDS: Unremarkable. KIDNEYS AND URETERS: The kidneys are normal in size, shape, and attenuation. No hydronephrosis, hydroureter, or calculi seen. No perinephric stranding. BLADDER: Unremarkable. GASTROINTESTINAL TRACT: Postsurgical changes in the region of the distal esophagus, and stomach. Small hiatal hernia. No bowel obstruction or right or left lower quadrant inflammatory change. ABDOMINAL WALL: No significant hernia is appreciated. LYMPH NODES: Normal. VASCULAR: Atherosclerotic change in the aorta which is nonaneurysmal. PELVIC VISCERA: Unremarkable. OSSEOUS STRUCTURES: No acute findings. There is mild degenerative change in lower thoracic spine. CT/CT abdomen pelvis w IV con IMPRESSION: No acute findings. No bowel obstruction. No evidence for upper inflammatory change in the region of prior gastric surgery. Fleischner guidelines were followed.
[2023-11-27 09:08] VITALS: BP 181/99; PULSE 72; RESP 18; TEMP 36.7; O2SAT 100; BMI 24.3
[2023-11-27 09:22] LABS: MANUAL DIFF FLAG NO
[2023-11-27 09:23] LABS: Basophils Percent Auto 0.1 % (0-2); Hematocrit 44.7 % (37.0-47.0); Hemoglobin 15.1 g/dl (12.0-16.0); Imm Gran Abs Auto 0.03 X10*3/uL (0.00-0.03); Imm Gran Pct Auto 0.4 % (0.0-0.4); Lymphocytes Absolute Auto 1.2 X10*3/uL (1.2-4.9); Lymphocytes Percent Auto 18.2 % (20-40); Mean Corpuscular HGB Conc 33.8 g/dl (31.0-35.0); Mean Corpuscular Volume 79.8 fL (80.0-98.0); Mean Platelet Volume 11.1 fL (9.4-12.3); Monocytes Absolute Auto 0.4 X10*3/uL (0.1-1.2); Neutrophils Percent Auto 75.3 % (45-73); Platelet Count 219 X10*3/uL (160-400); Red Cell Distribution Width 12.6 % (11.0-16.0); White Blood Count 6.7 X10*3/uL (4.8-10.8)
[2023-11-27 09:36] LABS: Alanine Aminotransferase 15 U/L (0-31); Albumin Level 4.8 g/dL (3.5-5.0); Alkaline Phosphatase 144 U/L (39-117); Anion Gap 17 (12-20); Aspartate Amino Transferase 25 U/L (5-31); Bilirubin Total 0.9 mg/dL (0.0-1.0); Blood Urea Nitrogen 10 mg/dL (9-16); Carbon Dioxide 24 mmol/L (22-29); Chloride 99 mmol/L (96-108); Creatinine Clr Calc Pharmacy 73.4; Estimated Glomerular Filt Rate > 60; Glucose Random 132 mg/dL (60-115); Potassium 3.8 mmol/L (3.3-5.1); Sodium 136 mmol/L (135-145); Total Protein 8.8 g/dL (6.5-8.0)
[2023-11-27 12:23] LABS: Influenza A PCR NEGATIVE (Negative); Influenza B PCR NEGATIVE (Negative); Resp Syncy Virus RNA Qual PCR NEGATIVE (Negative); SARS COV2 PCR INHOUSE NEGATIVE (Negative)
--- NOTE | 2023-11-27 12:23 | ED.ABDPAIN ---
HPI - Abdominal Pain General Chief Complaint: Abdominal Pain Stated Complaint: Abd pain Time Seen by Provider: 11/27/23 11:55 Source: patient, RN notes reviewed and old records reviewed Mode of arrival: ambulatory Limitations: no limitations History of Present Illness HPI narrative: 53 year old female with pmhx significant for hypertension, vitamin-B and D deficiency, hernia, s/p gastric bypass 20 years ago with revision 7 months ago presents to the ED today from home for evaluation severe abdominal pain, nausea, and vomiting x2 days. Rates abdominal pain 10/10. Pain is localized epigastric region. She states pain began after multiple episodes of vomiting. Not taking any sgiq-[id number] medications for this. She takes Percocet for fibromyalgia. She last took this yesterday as she did not want to use it for her abdominal pain. She went to [facility] to be evaluated for this yesterday however left without completing treatment due to the wait time. Denies fever, chills, anorexia, diarrhea, constipation, flank pain, dysuria, hematuria, hematochezia, melena, hematemesis. Denies known sick contacts. Denies recent travel. UTD on all vaccinations. Related Data Home Medications Medication Instructions Recorded Confirmed cyanocobalamin (vitamin B-12) 1,000 mcg PO DAILY 11/22/21 07/25/22 1,000 mcg tablet,extended release duloxetine 30 mg capsule,delayed 30 mg PO DAILY 11/22/21 07/25/22 release hydrochlorothiazide 25 mg tablet 25 mg PO DAILY 11/22/21 07/25/22 multivitamin with folic acid 400 1 tab PO DAILY 11/22/21 07/25/22 mcg tablet (Daily-Fabiano (with folic acid)) oxycodone-acetaminophen 5 mg-325 1 tab PO Q8H PRN 11/22/21 07/25/22 mg tablet (Percocet) cetirizine 10 mg tablet 10 mg PO DAILY 06/06/22 07/25/22 cholecalciferol (vitamin D3) 50 2,000 unit PO 07/25/22 07/25/22 mcg (2,000 unit) capsule Previous Rx's Medication Instructions Recorded omeprazole magnesium 20 mg 20 mg PO DAILY #30 tabs 09/13/21 tablet,delayed release (Prilosec OTC) bisacodyl 5 mg tablet,delayed 10 mg (2 x 5 mg) PO ONCE 11/22/21 release (Dulcolax (bisacodyl)) colonoscopy prep 1 day #2 tabs polyethylene glycol 3350 17 238 g PO ONCE 1 day #238 grams 11/22/21 gram/dose oral powder (Miralax) ondansetron 4 mg disintegrating 4 mg PO DAILY PRN nausea and 11/27/23 tablet vomiting 5 days #10 tabs Allergies Allergy/AdvReac Type Severity Reaction Status Date / Time ibuprofen [From Motrin] Allergy Intermediate RASH Verified 11/27/23 09:08 Review of Systems Review of Systems Constitutional: No fever, chills, fatigue, night sweats, weight changes ENT/Mouth: No ear pain, hearing loss, nasal congestion, sinus pain, rhinorrhea, sore throat Eyes: No eye pain, swelling, redness, vision changes, discharge Cardio: No chest pain, palpitations, MCMANUS, orthopnea, peripheral edema Pulm: No SOB, cough, sputum, wheezing, dyspnea, hemoptysis GI: No hematemesis, diarrhea, constipation, hematochezia, melena, +abdominal pain, +nausea, +vomiting : No irregular bleeding, dysuria, frequency, urgency, hesitancy, hematuria, flank pain, urinary flow changes, urinary incontinence or retention MSK: No back pain, neck pain, joint pain, myalgias Skin: No lesions, rashes Neuro: No weakness, numbness, paresthesias, LOC, dizziness, headache Psych: No anxiety/panic, depression, SI/HI, AH/VH All other systems reviewed and are negative. [facility] Past Medical History Attestation statement: The following information was validated with the patient. Source: old records reviewed and nursing notes reviewed Medical History Vitamin B deficiency Vitamin D deficiency Hernia Hypertension Surgical History Hx of hernia repair History of esophagogastroduodenoscopy (EGD) Gastric bypass status for obesity Family History Family History Mother Diabetes HTN (hypertension) High cholesterol Father Diabetes HTN (hypertension) High cholesterol Maternal Grandmother Diabetes HTN (hypertension) Paternal Grandfather Diabetes Social History Social History Household Members Other:: husbasnd- 2 kids @ home Alcohol intake: never Patient Tobacco Use Status: Never used Tobacco Smoked in Last 30 Days: No Use of substances other than those prescribed or required for medical reasons: No Advance Directives: No Advance Directives Information Provided: No Physical Exam ED Vital Signs: Vital Signs - 24 hr 11/27/23 09:08 11/27/23 12:25 11/27/23 15:53 Temperature 98.0 F Pulse Rate 72 73 66 Respiratory Rate 18 18 18 Blood Pressure 181/99 H 178/90 H 135/75 Pulse Oximetry 100 99 96 Oxygen Delivery Method Room Air Room Air Room Air BMI result Body Mass Index 24.3 Patient hypertensive, vitals otherwise WNL Const General: cooperative, healthy appearing, comfortable and no acute distress Orientation/consciousness: patient oriented x3 Limitations: no limitations HENMT Head: Yes normal to inspection, Yes No palpable skull fracture present, Yes normocephalic and Yes atraumatic Eyes General: appearance normal, both eyes and all related structures Conjunctivae: conjunctivae normal Sclerae: sclerae normal Pupils: Equal, round and reactive pupils present Neck Neck: Yes normal visual inspection, Yes full ROM and Yes no lymphadenopathy Resp Effort & Inspection: normal respiratory effort and able to speak in complete sentences Auscultation: clear to auscultation bilaterally Cardio Rate: regular rate Rhythm: regular rhythm GI Other: + abdomen soft, nondistended, mildly tender to palpation over the epigastric and right upper quadrant. No rebound tenderness or guarding. Negative Contreras's sign. Negative Rovsing's and McBurney point tenderness. Normoactive bowel sounds x4. Inspection: Yes normal to inspection and No visible peristalsis General: Yes no CVA tenderness Back/Spine/Pelvis Back: no CVA tenderness Skin General skin exam: no rashes or lesions noted Neuro General: patient oriented x3 Cranial nerves: Yes Equal, round and reactive pupils present Gait exam (Neuro): Normal gait present Extrem General: Yes normal to inspection and Yes capillary refill normal Course Course Course Narrative: 1323-- CBC without leukocytosis. No anemia. H&H stable. Chemistry without acute electrolyte abnormality requiring intervention. Normal renal function. Elevated alk-phos. Liver enzymes otherwise WNL 1426-- on re-evaluation, patient states that her abdominal pain has greatly improved with morphine and Zofran. She has not had further episodes of vomiting. She is sitting up in bed watching TV. Her is at bedside. Currently awaiting CT scan read. 1622--urine negative for infection. It does show some blood > patient does not endorsing blood in her urine. Given patient is complaining of right-sided abdominal pain, she may be passing a kidney stone however this was not identified on CT scan as contrast was used. patient tolerating crackers and orange juice. She has declined a sandwich as she does not eat turkey. She has had no further episodes in the ED or following PO intake. she has received Zofran and IV fluids. Pain has been relieved with morphine. Given patient is on pain contract due to history of fibromyalgia, I will not be sending her home with controlled pain medication. Advised patient to increase her water intake. She is going to be calling her PCP tomorrow to follow-up. Patient has remained stable throughout ED visit today. Discussed worrisome signs and symptoms and when to return to the ED. All questions answered at this time. Patient is agreeable with disposition and stable for discharge. Medical Decision Making Medical Decision Making [facility] Narrative: 53 year old female with pmhx significant for hypertension, vitamin-B and D deficiency, hernia, s/p gastric bypass 20 years ago with revision 7 months ago presents to the ED today from home for evaluation severe abdominal pain, nausea, and vomiting x2 days. Patient hypertensive, vitals otherwise WNL. She is nontoxic appearing in no acute distress. Abdomen is soft, nondistended, mildly tender to the epigastric region. No rebound tenderness or guarding. Normoactive bowel sounds x4. Negative Contreras sign. Negative Rovsing sign, negative McBurney point tenderness. CVAT bilaterally. No rashes. Differential diagnosis includes urinary tract infection, nephrolithiasis, renal colic, gastroparesis, gastritis. Lower suspicion for acute appendicitis, cholecystitis, cholangitis, pancreatitis, acute abdomen, ischemic bowel or bowel obstruction. Plan for basic labs, urine, CT abdomen/pelvis. Differential Diagnosis Differential Diagnoses: The differential diagnosis associated with the presentation includes as above. Admission/Observation Consideration of admission/observation: Escalation of care including admission/observation considered In this patient is status post gastric bypass presenting with nausea and vomiting, admission was considered. Lab Data [facility] Lab Attestation statement: I reviewed the patient's lab results. As above 11/27/23 09:18 11/27/23 09:18 Labs: Lab Results 11/27/23 11/27/23 11/27/23 Range/Units 09:18 11:00 14:18 WBC 6.7 (4.8-10.8) X10*3/uL RBC 5.60 H (4.20-5.50) X10*6/uL Hgb 15.1 D (12.0-16.0) g/dl Hct 44.7 D (37.0-47.0) % MCV 79.8 L (80.0-98.0) fL MCH 27.0 (27.0-33.0) pg MCHC 33.8 (31.0-35.0) g/dl RDW 12.6 (11.0-16.0) % Plt Count 219 D (160-400) X10*3/uL MPV 11.1 (9.4-12.3) fL Immature Gran % (Auto) 0.4 (0.0-0.4) % Neut % (Auto) 75.3 H (45-73) % Lymph % (Auto) 18.2 L (20-40) % [place] % (Auto) 6.0 (2-11) % Eos % (Auto) 0.0 (0-4) % Baso % (Auto) 0.1 (0-2) % Lymph # (Auto) 1.2 (1.2-4.9) X10*3/uL [place] # (Auto) 0.4 (0.1-1.2) X10*3/uL Eos # (Auto) 0.0 (0.0-0.4) X10*3/uL Baso # (Auto) 0.0 (0.0-0.2) X10*3/uL Abs Immat Gran (auto) 0.03 (0.00-0.03) X10*3/uL Absolute Neuts (auto) 5.0 (2.0-8.3) x10*3/uL Absolute Nucleated RBC 0.000 (0.0-0.012) X10*3/uL Nucleated RBC % (auto) 0.0 (0.0-0.2) /100WBC Sodium 136 (135-145) mmol/L Potassium 3.8 (3.3-5.1) mmol/L Chloride 99 (96-108) mmol/L Carbon Dioxide 24 (22-29) mmol/L Anion Gap 17 (12-20) BUN 10 (9-16) mg/dL Creatinine 0.75 (0.5-1.4) mg/dL Estim Creat Clear Calc 73.4 Estimated GFR > 60 Random Glucose 132 H (60-115) mg/dL Calcium 10.0 (8.4-10.2) mg/dL Total Bilirubin 0.9 (0.0-1.0) mg/dL AST 25 (5-31) U/L ALT 15 (0-31) U/L Alkaline Phosphatase 144 H (39-117) U/L Total Protein 8.8 H (6.5-8.0) g/dL Albumin 4.8 (3.5-5.0) g/dL Lipase 7 L (8-78) U/L Urine Color Yellow Urine Appearance Clear Urine pH 6.5 (5.0-9.0) Ur Specific [place] >= 1.030 H (1.005-1.025) Urine Protein 30 (1+) H (Neg-Trace) mg/dL Urine Glucose (UA) Negative (Negative) mg/dL Urine Ketones 15 (Negative) mg/dL Urine Blood Moderate (2+) H (Negative) Urine Nitrite Negative (Negative) Ur Leukocyte Esterase Negative (Negative) Urine RBC 11-20 H (0-2) /HPF Urine WBC 0-5 (0-5) /HPF Ur Squamous Epith Cells 0-2 (0-2) /HPF Urine Bacteria None Seen (None Seen) Hyaline Casts 0-2 (0-2) /LPF Influenza Type A (PCR) NEGATIVE (Negative) Influenza Type B (PCR) NEGATIVE (Negative) RSV RNA Qual (PCR) NEGATIVE (Negative) SARS-CoV-2 RNA (RT-PCR) NEGATIVE (Negative) Independent Interpretation I performed an independent interpretation of an: CT Scan Interpretation: I personally reviewed CT scan abdomen/ pelvis and agree with radiologist's interpretation. Radiology Impression Discussion of test interpretation with radiology: I have reviewed the radiologist's reading. Radiologist Impression: EXAMINATION: CT ABDOMEN AND PELVIS WITH CONTRAST CLINICAL INFORMATION: Abdominal pain. History of gastric bypass COMPARISON: 09/13/2021 TECHNIQUE: Multidetector volumetric images were obtained from the superior aspect of the liver through the pubic symphysis following administration 85 mL of Omnipaque 350 intravenous contrast. Sagittal and coronal reformatted images were obtained on the technologist's workstation. Oral contrast: No This CT examination was performed using dose optimization techniques as appropriate, variously including the following: *Automated exposure control *Adjustment of mA and/or kV according to patient size (this includes techniques or standardized protocols for targeted exams where dose is matched to indication/reason for exam; i.e. extremities or head) *Use of iterative reconstruction technique DLP: 429 mGy-cm FINDINGS: LUNG BASES: The visualized lung bases are unremarkable. LIVER, GALLBLADDER, AND BILIARY TREE: There is slight ectasia of the intrahepatic biliary tree in this patient is status post cholecystectomy, as was seen on 09/13/2021, perhaps slightly more apparent today. No focal hepatic masses are seen. The gallbladder is surgically absent. PANCREAS: Unremarkable. SPLEEN: Unremarkable. ADRENAL GLANDS: Unremarkable. KIDNEYS AND URETERS: The kidneys are normal in size, shape, and attenuation. No hydronephrosis, hydroureter, or calculi seen. No perinephric stranding. BLADDER: Unremarkable. GASTROINTESTINAL TRACT: Postsurgical changes in the region of the distal esophagus, and stomach. Small hiatal hernia. No bowel obstruction or right or left lower quadrant inflammatory change. ABDOMINAL WALL: No significant hernia is appreciated. LYMPH NODES: Normal. VASCULAR: Atherosclerotic change in the aorta which is nonaneurysmal. PELVIC VISCERA: Unremarkable. OSSEOUS STRUCTURES: No acute findings. There is mild degenerative change in lower thoracic spine. CT/CT abdomen pelvis w IV con IMPRESSION: No acute findings. No bowel obstruction. No evidence for upper inflammatory change in the region of prior gastric surgery. Fleischner guidelines were followed. External Record Review External record reviewed: Inpatient record, Office record, Outpatient record, Prior outpatient labs, Prior outpatient radiology, Primary care record and Outside ED record Prescription Management I considered prescription management with: Pain Medication and Other (Antiemetic) Chronic Conditions Patient?s care impacted by: Other (gastric bypass) Social Determinants Patient?s care significantly limited by Social Determinants of Health including: Other Social Determinant of Health Medications Administered Discontinued Medications Generic Name Dose Route Start Last Admin Trade Name Freq PRN Reason Stop Dose Admin Sodium Chloride 1,000 mls @ 999 mls/hr 11/27/23 12:30 11/27/23 14:10 Ns IV 11/27/23 13:30 Infused .Q1H1M VEDA Infusion Morphine Sulfate 4 mg 11/27/23 12:31 11/27/23 12:37 Morphine Sulfate 4 Mg/Ml Cartridge IVPUSH 11/27/23 12:32 4 mg ONCE ONE Administration Protocol Morphine Sulfate 2 mg 11/27/23 15:40 11/27/23 15:51 Morphine Sulfate 2 Mg/Ml Cartridge IVPUSH 11/27/23 15:41 2 mg ONCE ONE Administration Protocol Ondansetron HCl 4 mg 11/27/23 12:32 11/27/23 12:37 Ondansetron Hcl 4 Mg/2 Ml Vial IVPUSH 11/27/23 12:33 4 mg ONCE ONE Administration Critical Care Time Critical Care Time Critical Care Time: Yes Total Critical Care Time: 60 Attestation: Critical care time in the amount of 60 minutes has been provided to the patient in terms of direct patient care, frequent reevaluation on IV morphine, review and interpretation of medical data and results, and management of potentially life-threatening conditions. This is all outside of any medical procedures. Discharge Plan Discharge Clinical Impression: Abdominal pain Patient Disposition: Home, Self-Care Instructions: Abdominal Pain (ED) Additional Instructions: Your lab work is reassuring. The CT of your abdomen/pelvis does not exhibit acute process. Your urine is negative for infection. We are unable to send any controlled pain medication to your pharmacy due to your pain contract. Please avoid NSAIDs such as ibuprofen as this can damage your stomach. You may take Tylenol as needed for pain. Please call your PCP tomorrow to follow-up. Return to the ED with new or worsening symptoms. The case of an emergency call 911. Prescriptions: New ondansetron 4 mg tablet,disintegrating 4 mg PO DAILY PRN (Reason: nausea and vomiting) 5 Days Qty: 10 0RF No Action omeprazole magnesium [Prilosec OTC] 20 mg tablet,delayed release (DR/EC) 20 mg PO DAILY Qty: 30 0RF duloxetine 30 mg capsule,delayed release(DR/EC) 30 mg PO DAILY cyanocobalamin (vitamin B-12) 1,000 mcg tablet extended release 1,000 mcg PO DAILY multivitamin with folic acid [Daily-Fabiano (with folic acid)] 400 mcg tablet 1 tab PO DAILY hydrochlorothiazide 25 mg tablet 25 mg PO DAILY oxycodone-acetaminophen [Percocet] 5-325 mg tablet 1 tab PO Q8H PRN bisacodyl [Dulcolax (bisacodyl)] 5 mg tablet,delayed release (DR/EC) 10 mg PO ONCE 1 Days Qty: 2 0RF Rx Instructions: Take 2 tablets by mouth at 12:00pm the day before your procedure. polyethylene glycol 3350 [Miralax] 17 gram/dose powder 238 g PO ONCE 1 Days Qty: 238 0RF Rx Instructions: Take as directed by mouth the day before your procedure. cetirizine 10 mg tablet 10 mg PO DAILY cholecalciferol (vitamin D3) 50 mcg (2,000 unit) capsule 2,000 unit PO Referrals: [facility] [place] [facility] [place]Provider Group] [facility] [place] [facility] [place]Provider Group] [facility] [place] [facility] [Provider Group]
[2023-11-27 12:25] VITALS: BP 178/90; PULSE 73; RESP 18; O2SAT 99
[2023-11-27] MEDS: Morphine Sulfate 4 MG/ML CARTRIDGE IVPUSH (12:37)
[2023-11-27] MEDS: ondansetron HCL 4 MG/2 ML VIAL IVPUSH (12:37)
[2023-11-27] MEDS: 0.9 % Sodium Chloride 1,000 ML 999 ML IV (12:42)
[2023-11-27 14:17] LABS: Lipase 7 U/L (8-78)
[2023-11-27 14:26] LABS: Appearance Urine Clear; Color Urine Yellow; Glucose Urine UA Negative (Negative); Leukocyte Esterase Urine Negative (Negative); Nitrite Urine Negative (Negative); PH 6.5 (5.0-9.0); Specific Gravity - Urine >= 1.030 (1.005-1.025); UMIC TRIGGER UACC YES; Urine Blood Moderate (2+) (Negative); Urine Ketones 15 mg/dL (Negative); Urine Protein 30 (1+) mg/dL (Neg-Trace)
[2023-11-27 14:28] LABS: Bacteria Urine None Seen (None Seen); Hyaline Casts Urine 0-2 /LPF (0-2); Squamous Epithelial Cell Urine 0-2 /HPF (0-2); WBC Urine 0-5 /HPF (0-5)
[2023-11-27] MEDS: Morphine Sulfate 2 MG/ML CARTRIDGE IVPUSH (15:51)
[2023-11-27 15:53] VITALS: BP 135/75; PULSE 66; RESP 18; O2SAT 96
[2023-11-27 16:46] VITALS: BP 131/62; PULSE 67; RESP 18; TEMP 36.6; O2SAT 97
== END 2023-11-27 17:01 | disposition home or self-care (01) ==
PROVIDERS: Physician Assistant Medical; Emergency Provider Emergency Medicine; PCP Pediatrics
DX: R10.9 Unspecified abdominal pain (principal); R11.2 Nausea with vomiting, unspecified; I10 Essential (primary) hypertension; M79.7 Fibromyalgia; Z79.891 Long term (current) use of opiate analgesic; Z98.84 Bariatric surgery status; Z11.52 Encounter for screening for COVID-19; Z20.828 Contact with and (suspected) exposure to other viral communicable diseases
CPT/HCPCS: 0241U; 36415; 74177; 80053; 81001; 83690; 85025; 96361; 96374; 96375; 96376; 99284; J2270; J2405

== ENCOUNTER 2023-12-05 16:08 | Outpatient (REF) | payer OTHER, SELFPAY | END 2023-12-05 16:09 | disposition home or self-care (01) | LOC: HO.CHCLNP 16:08 | PROVIDERS: Visit Provider Pediatrics | DX: R31.29 Other microscopic hematuria (principal) | CPT/HCPCS: 88112 ==

== ENCOUNTER 2023-12-06 13:11 | Outpatient (REF) | payer OTHER, SELFPAY ==
[2023-12-06 14:25] LABS: Urine Cytology See Pathology rpt
== END 2023-12-06 13:12 | disposition home or self-care (01) ==
LOC: HO.CHCLDS 13:11
PROVIDERS: Visit Provider Pediatrics
DX: Z13.89 Encounter for screening for other disorder (principal)

== ENCOUNTER 2024-02-17 13:47 | Outpatient (AMB) | payer OTHER, SELFPAY ==
--- NOTE | 2024-02-17 13:59 | A.OFFVIS_ITS ---
Intake Visit Reasons: microscopic hematuria Intake Note: NEW Patient presents today to established treatment for Microcospic Hematuria: Meds- None Allergies to Antibiotic- No Known Allergies Blood Thinner- None Surtass Analyst Required: No Accompanied by: Self / Same As Patient Allergies ibuprofen [From Motrin] Allergy (Intermediate, Verified 02/17/24 14:02) RASH Medication List - Last Reconciled 02/17/24 by Melita Baltazar MD bisacodyl (Dulcolax (bisacodyl)) 10 mg (2 x 5 mg) PO ONCE 1 day cetirizine 10 mg PO DAILY cholecalciferol (vitamin D3) 2,000 units PO cyanocobalamin (vitamin B-12) ER 1,000 mcg PO DAILY duloxetine 30 mg PO DAILY estradiol 0.01%(0.1mg/gram) (Estrace) pea sized amount on fingertip a qhs vaginally vaginally daily; hydrochlorothiazide 25 mg PO DAILY multivitamin with folic acid 400 mcg (Daily-Fabiano (with folic acid)) 1 tab PO DAILY omeprazole magnesium (Prilosec OTC) 20 mg PO DAILY ondansetron 4 mg PO DAILY PRN 5 days oxycodone-acetaminophen 5-325 mg (Percocet) 1 tab PO Q8H PRN polyethylene glycol 3350 (Miralax) 238 grams PO ONCE 1 day HPI Comments Details: Genet is here for [employer] evaluation due to microscopic hematuria. PMH/PSH h/o Obesity s/p gastric bypass. Denies tobacco use. She complains of vaginal dryness for about 2 years and urinary urgency for the last 6 months. In review of her chart, she had CT abd/pelvis with IV contrast on 11/27/23, which I have reviewed and discussed-- Urinary tract WNL. I have discussed further evaluation with office cystoscopy, will prescribe vaginal estrace cream. [facility] Medical History Vitamin B deficiency Vitamin D deficiency Hernia Hypertension Surgical History Hx of hernia repair History of esophagogastroduodenoscopy (EGD) Gastric bypass status for obesity Family History Mother Diabetes HTN (hypertension) High cholesterol Father Diabetes HTN (hypertension) High cholesterol Maternal Grandmother Diabetes HTN (hypertension) Paternal Grandfather Diabetes Social History Household Members Other:: husbasnd- 2 kids @ home Alcohol intake: never Patient Tobacco Use Status: Never used Tobacco Review of Systems Const All systems reviewed & are unremarkable except as noted in HPI and below Reports no additional complaints Eyes Reports no additional complaints ENT Reports no additional complaints Card Reports no additional complaints Resp Reports no additional complaints GI Reports no additional complaints Reports as per HPI Musc Reports no additional complaints Skin/Breast Reports system reviewed and no additional complaints, except as documented Neuro Reports no additional complaints Psych Reports no additional complaints Endo Reports no additional complaints Mark/Lymph Reports no additional complaints Aller/Immun Reports no additional complaints Physical Exam Const General: cooperative, healthy appearing and no acute distress Orientation/consciousness: patient oriented x3 HEENT Head: Yes normal to inspection, Yes normocephalic and Yes atraumatic Eyes Conjunctivae: conjunctivae normal Neck Neck: Yes normal visual inspection and Yes trachea midline Chest Chest palpation & inspection: normal inspection of the chest Resp Effort & Inspection: normal respiratory effort Cardio Rate: regular rate GI Inspection: Yes normal to inspection Skin General skin exam: no rashes or lesions noted Neuro General: patient oriented x3 Extrem General: No edema Psych Appearance: grossly normal Results AMB Urinalysis, Automated UA Leukoctes 15 Meka/uL Last Edit by JOVITA Camp on 02/17/24 14:22 UA Nitrite Negative Last Edit by JOVITA Camp on 02/17/24 14:22 UA Urobilinogen 0.2 mg/dL Last Edit by JOVITA Camp on 02/17/24 14:2 2 UA Protein 15 mg/dL Last Edit by JOVITA Camp on 02/17/24 14:22 UA pH 6.0 Last Edit by Wali Velez, A on 02/17/24 14:22 UA Blood 10 Simon/uL Last Edit by Wali Velez, A on 02/17/24 14:22 UA Specific [place] 1.020 Last Edit by Wali Velez, A on 02/17/24 14: 22 UA Ketone Positive Last Edit by Wali Velez A on 02/17/24 14:22 5 mg/dL Wali Velez 02/17/24 14:22 UA Bilirubin 1 mg/dL Last Edit by Wali Velez A on 02/17/24 14:22 1+ Wali Velez 02/17/24 14:22 UA Glucose 0 mg/dL Last Edit by Wali Velez A on 02/17/24 14:22 Results Reviewed Results Reviewed: Laboratory Last Values Urine pH (Auto) 6.0 02/17/24 14:20 Specific [place] (Auto) 1.020 02/17/24 14:20 Urine Protein (Auto) 15 mg/dL 02/17/24 14:20 Glucose (UA)(Auto) 0 mg/dL 02/17/24 14:20 Urine Ketones (Auto) Positive 02/17/24 14:20 Urine Blood (Auto) 10 Simon/uL 02/17/24 14:20 Urine Nitrite (Auto) Negative 02/17/24 14:20 Urine Bilirubin (Auto) 1 mg/dL 02/17/24 14:20 Urine Urobilinogen (Auto) 0.2 mg/dL 02/17/24 14:20 Leukocyte Esterase (Auto) 15 Meka/uL 02/17/24 14:20 Date of Service: 11/27/23 EXAMINATION: CT ABDOMEN AND PELVIS WITH CONTRAST CLINICAL INFORMATION: Abdominal pain. History of gastric bypass COMPARISON: 09/13/2021 TECHNIQUE: Multidetector volumetric images were obtained from the superior aspect of the liver through the pubic symphysis following administration 85 mL of Omnipaque 350 intravenous contrast. Sagittal and coronal reformatted images were obtained on the technologist's workstation. Oral contrast: No This CT examination was performed using dose optimization techniques as appropriate, variously including the following: *Automated exposure control *Adjustment of mA and/or kV according to patient size (this includes techniques or standardized protocols for targeted exams where dose is matched to indication/reason for exam; i.e. extremities or head) *Use of iterative reconstruction technique DLP: 429 mGy-cm FINDINGS: LUNG BASES: The visualized lung bases are unremarkable. LIVER, GALLBLADDER, AND BILIARY TREE: There is slight ectasia of the intrahepatic biliary tree in this patient is status post cholecystectomy, as was seen on 09/13/2021, perhaps slightly more apparent today. No focal hepatic masses are seen. The gallbladder is surgically absent. PANCREAS: Unremarkable. SPLEEN: Unremarkable. ADRENAL GLANDS: Unremarkable. KIDNEYS AND URETERS: The kidneys are normal in size, shape, and attenuation. No hydronephrosis, hydroureter, or calculi seen. No perinephric stranding. BLADDER: Unremarkable. GASTROINTESTINAL TRACT: Postsurgical changes in the region of the distal esophagus, and stomach. Small hiatal hernia. No bowel obstruction or right or left lower quadrant inflammatory change. ABDOMINAL WALL: No significant hernia is appreciated. LYMPH NODES: Normal. VASCULAR: Atherosclerotic change in the aorta which is nonaneurysmal. PELVIC VISCERA: Unremarkable. OSSEOUS STRUCTURES: No acute findings. There is mild degenerative change in lower thoracic spine. IMPRESSION: No acute findings. No bowel obstruction. No evidence for upper inflammatory change in the region of prior gastric surgery. Assessment & Plan Assessment & Plan (1) Microscopic hematuria: Code(s): R31.29 - Other microscopic hematuria Category: Medical (2) Urinary urgency: Code(s): R39.15 - Urgency of urination Category: Medical (3) Vaginal atrophy: Code(s): N95.2 - Postmenopausal atrophic vaginitis Category: Medical Plan estrace cream, sched office cystoscopy Orders: Orders AMB Urinalysis Automated Today Z13.9 - Encounter for screening, unspecified Medications: New estradiol 0.01%(0.1mg/gram) (Estrace) pea sized amount on fingertip a qhs vaginally vaginally daily; 42.5 grams 1RF Patient Instructions: The patient had an opportunity to ask questions regarding treatment plan. The patient expressed understanding and agreement with the above treatment plan. The patient is aware they should contact our office by phone for worsening of their current condition or the appearance of new symptoms. Compliance is encouraged with any medications and followup testing that is ordered. It is a privilege to be allowed the opportunity to participate in the urologic care of your patient. If you have any questions or concerns regarding treatment for the above conditions please do not hesitate to contact me. The office telephone contact is [phone]. This note is constructed in part using voice recognition software. While every effort has been made to ensure accuracy poker machine attendant errors may have been included. Yours sincerely, Melita Baltazar MD Coding Level of Care Code New Pt Level 4 (12029) Diagnoses Microscopic hematuria R31.29 Urinary urgency R39.15 Vaginal atrophy N95.2
== END 2024-02-17 14:58 | disposition home or self-care (01) ==
PROVIDERS: PCP Pediatrics; Visit Provider Urology
DX: R31.29 Other microscopic hematuria (principal); R39.15 Urgency of urination; N95.2 Postmenopausal atrophic vaginitis; Z13.9 Encounter for screening, unspecified
CPT/HCPCS: 99204

== ENCOUNTER → 2024-02-17 13:47 | Outpatient (BNVA) | payer OTHER, SELFPAY | PROVIDERS: PCP Pediatrics; Visit Provider Urology | DX: R31.29 Other microscopic hematuria (principal); R39.15 Urgency of urination; N95.2 Postmenopausal atrophic vaginitis | CPT/HCPCS: 81003; 99202 ==

== ENCOUNTER 2024-03-27 14:46 | Outpatient (AMB) | payer OTHER, SELFPAY ==
--- NOTE | 2024-03-27 14:50 | A.OFFVIS_ITS ---
Intake Visit Reasons: cysto Intake Note: Patient presents today for Cystoscopy Meds: Estrace Cream Allergies to Antibiotic: No Known Allergies Blood Thinner: None Roving Winder Required: No Accompanied by: Self / Same As Patient Allergies ibuprofen [From Motrin] Allergy (Intermediate, Verified 03/27/24 14:51) RASH Medication List - Last Reconciled 03/27/24 by Melita Baltazar MD bisacodyl (Dulcolax (bisacodyl)) 10 mg (2 x 5 mg) PO ONCE 1 day cetirizine 10 mg PO DAILY cholecalciferol (vitamin D3) 2,000 units PO cyanocobalamin (vitamin B-12) ER 1,000 mcg PO DAILY duloxetine 30 mg PO DAILY estradiol 0.01%(0.1mg/gram) (Estrace) pea sized amount on fingertip a qhs vaginally vaginally daily; hydrochlorothiazide 25 mg PO DAILY multivitamin with folic acid 400 mcg (Daily-Fabiano (with folic acid)) 1 tab PO DAILY omeprazole magnesium (Prilosec OTC) 20 mg PO DAILY ondansetron 4 mg PO DAILY PRN 5 days oxycodone-acetaminophen 5-325 mg (Percocet) 1 tab PO Q8H PRN polyethylene glycol 3350 (Miralax) 238 grams PO ONCE 1 day HPI Comments Details: 03/27/24--here for office cystoscopy. Genet is being evaluated for microscopic hematuria, complains of vaginal dryness and hot flashes. History of nicotine use. Estrace cream was ordered on 02/16/2023 she states that the pharmacy did let her know the prescription was ready. I will send it again today. Cystoscopy findings: No suspicious bladder lesions. The patient is instructed on the local vaginal estrogen use, pea-sized amount to her fingertip to apply daily at bedtime. 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 PMH/PSH h/o Obesity s/p gastric bypass. Denies tobacco use. She complains of vaginal dryness for about 2 years and urinary urgency for the last 6 months. In review of her chart, she had CT abd/pelvis with IV contrast on 11/27/23, which I have reviewed and discussed-- Urinary tract WNL. I have discussed further evaluation with office cystoscopy, will prescribe vaginal estrace cream. PFSH Medical History Vitamin B deficiency Vitamin D deficiency Hernia Hypertension Surgical History Hx of hernia repair History of esophagogastroduodenoscopy (EGD) Gastric bypass status for obesity Family History Mother Diabetes HTN (hypertension) High cholesterol Father Diabetes HTN (hypertension) High cholesterol Maternal Grandmother Diabetes HTN (hypertension) Paternal Grandfather Diabetes Social History Household Members Other:: husbasnd- 2 kids @ home Alcohol intake: never Patient Tobacco Use Status: Never used Tobacco Review of Systems Const All systems reviewed & are unremarkable except as noted in HPI and below Reports no additional complaints Eyes Reports no additional complaints ENT Reports no additional complaints Card Reports no additional complaints Resp Reports no additional complaints GI Reports no additional complaints Reports as per HPI Musc Reports no additional complaints Skin/Breast Reports system reviewed and no additional complaints, except as documented Neuro Reports no additional complaints Psych Reports no additional complaints Endo Reports no additional complaints Mark/Lymph Reports no additional complaints Aller/Immun Reports no additional complaints Office Procedures Cystoscopy Consent Discussed risk and benefit or proposed procedure with the patient. Information consent for procedure given to the patient. Discussed technical aspects, risks, benefits and alternatives in full. Addressed all of the patient's questions and concerns regarding the procedure. The patient demonstrated knowledge and understanding. They wish to proceed with this procedure. Preparation The patient was prepped in the usual manner. A emergency management coordinator was present and in the room. Genitalia was prepped with betadine solution in a sterile manner. Lidocaine Jelly 2% was placed into the urethra and 16Fr flexible Olympus cystoscope was inserted into the meatus after adequate lubrication. Procedure Time out per protocol performed. Bladder Inspection Bladder Inspection: The bladder was inspected in its entirety with utilization retroflexion displaying: Tumor(s): No suspicious bladder lesions visualized Trabeculation: NA Mucosal Erthema: mild Orifices: normal shape and position Urethra: normal Cystoscopy findings: WNL, no suspicious bladder lesions visualized [id number] DISPOSABLE SCOPE URO-G FLEXIBLE SCOPE Procedure code (CPT) selection complete Office Meds lidocaine HCl 2 % mucosal jelly in applicator Performing Provider: Melita Baltazar MD [facility] Administered by: Seferino Jimenez LPN on 03/27/24 15:02 Dose Route Admin Location Dispensed Lot Number Expiration Date ND Senior Advocate 10 mL intra-urethral 10 mL ciprofloxacin HCl 500 mg tablet Performing Provider: Melita Baltazar MD Performing Location: [facility] Administered by: Seferino Jimenez LPN on 03/27/24 15:02 Dose Route Admin Location Dispensed Lot Number Expiration Date ND Senior Advocate 500 mg PO 1 tab Results AMB Urinalysis, Automated UA Leukoctes 0 Meka/uL Last Edit by Simba Abernathy on 03/27/24 15:04 UA Nitrite Negative Last Edit by Simba Aberntahy on 03/27/24 15:04 UA Urobilinogen 0.2 mg/dL Last Edit by Simba Abernathy on 03/27/24 15:04 UA Protein 15 mg/dL Last Edit by Simba Abernathy on 03/27/24 15:04 UA pH 6.0 Last Edit by Simba Abernathy on 03/27/24 15:04 UA Blood 10 Simon/uL Last Edit by Simba Abernathy on 03/27/24 15:04 UA Specific [place] 1.025 Last Edit by Simba Abernathy on 03/27/24 15:04 UA Ketone Negative Last Edit by Simba Abernathy on 03/27/24 15:04 UA Bilirubin 1 mg/dL Last Edit by Simba Abernathy on 03/27/24 15:04 UA Glucose 0 mg/dL Last Edit by Simba Abernathy on 03/27/24 15:04 Results Reviewed Results Reviewed: Laboratory Last Values Urine pH (Auto) 6.0 03/27/24 14:52 Specific [place] (Auto) 1.025 03/27/24 14:52 Urine Protein (Auto) 15 mg/dL 03/27/24 14:52 Glucose (UA)(Auto) 0 mg/dL 03/27/24 14:52 Urine Ketones (Auto) Negative 03/27/24 14:52 Urine Blood (Auto) 10 Simon/uL 03/27/24 14:52 Urine Nitrite (Auto) Negative 03/27/24 14:52 Urine Bilirubin (Auto) 1 mg/dL 03/27/24 14:52 Urine Urobilinogen (Auto) 0.2 mg/dL 03/27/24 14:52 Leukocyte Esterase (Auto) 0 Meka/uL 03/27/24 14:52 Date of Service: 11/27/23 EXAMINATION: CT ABDOMEN AND PELVIS WITH CONTRAST CLINICAL INFORMATION: Abdominal pain. History of gastric bypass COMPARISON: 09/13/2021 TECHNIQUE: Multidetector volumetric images were obtained from the superior aspect of the liver through the pubic symphysis following administration 85 mL of Omnipaque 350 intravenous contrast. Sagittal and coronal reformatted images were obtained on the technologist's workstation. Oral contrast: No This CT examination was performed using dose optimization techniques as appropriate, variously including the following: *Automated exposure control *Adjustment of mA and/or kV according to patient size (this includes techniques or standardized protocols for targeted exams where dose is matched to indication/reason for exam; i.e. extremities or head) *Use of iterative reconstruction technique DLP: 429 mGy-cm FINDINGS: LUNG BASES: The visualized lung bases are unremarkable. LIVER, GALLBLADDER, AND BILIARY TREE: There is slight ectasia of the intrahepatic biliary tree in this patient is status post cholecystectomy, as was seen on 09/13/2021, perhaps slightly more apparent today. No focal hepatic masses are seen. The gallbladder is surgically absent. PANCREAS: Unremarkable. SPLEEN: Unremarkable. ADRENAL GLANDS: Unremarkable. KIDNEYS AND URETERS: The kidneys are normal in size, shape, and attenuation. No hydronephrosis, hydroureter, or calculi seen. No perinephric stranding. BLADDER: Unremarkable. GASTROINTESTINAL TRACT: Postsurgical changes in the region of the distal esophagus, and stomach. Small hiatal hernia. No bowel obstruction or right or left lower quadrant inflammatory change. ABDOMINAL WALL: No significant hernia is appreciated. LYMPH NODES: Normal. VASCULAR: Atherosclerotic change in the aorta which is nonaneurysmal. PELVIC VISCERA: Unremarkable. OSSEOUS STRUCTURES: No acute findings. There is mild degenerative change in lower thoracic spine. IMPRESSION: No acute findings. No bowel obstruction. No evidence for upper inflammatory change in the region of prior gastric surgery. Assessment & Plan Assessment & Plan (1) Microscopic hematuria: Code(s): R31.29 - Other microscopic hematuria Category: Medical (2) Urinary urgency: Code(s): R39.15 - Urgency of urination Category: Medical (3) Vaginal atrophy: Code(s): N95.2 - Postmenopausal atrophic vaginitis Category: Medical Plan Cystoscopy findings: No suspicious bladder lesions. The patient is instructed on the local vaginal estrogen use, pea-sized amount to her fingertip to apply daily at bedtime. Follow-up in 6 months Orders: Orders AMB Urinalysis Automated Today Z13.9 - Encounter for screening, unspecified AMB Cystoscopy Today R31.29 - Other microscopic hematuria, R39.15 - Urgency of urination Medications: Refilled estradiol 0.01%(0.1mg/gram) (Estrace) pea sized amount on fingertip a qhs vaginally vaginally daily; 42.5 grams 1RF Patient Instructions: The patient had an opportunity to ask questions regarding treatment plan. The patient expressed understanding and agreement with the above treatment plan. The patient is aware they should contact our office by phone for worsening of their current condition or the appearance of new symptoms. Compliance is encouraged with any medications and followup testing that is ordered. It is a privilege to be allowed the opportunity to participate in the urologic care of your patient. If you have any questions or concerns regarding treatment for the above conditions please do not hesitate to contact me. The office telephone contact is [phone]. This note is constructed in part using voice recognition software. While every effort has been made to ensure accuracy business planning director errors may have been included. Yours sincerely, Melita Baltazar MD Coding Level of Care Code Procedure Only Diagnoses Microscopic hematuria R31.29 Urinary urgency R39.15 Vaginal atrophy N95.2 CPT Codes Cystoscopy - CPT: 95990-[id number] ([id number])
== END 2024-03-27 15:37 | disposition home or self-care (01) ==
PROVIDERS: PCP Pediatrics; Visit Provider Urology
DX: R31.29 Other microscopic hematuria (principal); R39.15 Urgency of urination; N95.2 Postmenopausal atrophic vaginitis; Z13.9 Encounter for screening, unspecified
CPT/HCPCS: 52000

== ENCOUNTER → 2024-03-27 14:46 | Outpatient (BNVA) | payer OTHER, MEDICARE, SELFPAY | PROVIDERS: PCP Pediatrics; Visit Provider Urology | DX: R31.29 Other microscopic hematuria (principal); R39.15 Urgency of urination; N95.2 Postmenopausal atrophic vaginitis | CPT/HCPCS: 52000; 81003 ==

== ENCOUNTER 2024-05-11 10:46 | Emergency (ER) | payer OTHER, SELFPAY ==
--- NOTE | ~2024-05-11 | XR_ITS ---
EXAMINATION: XR SHOULDER, LEFT XR HUMERUS, LEFT CLINICAL INFORMATION: Pain COMPARISON: None available. TECHNIQUE: 3 views of the left shoulder 2 views of the left humerus FINDINGS: No acute visible fracture or dislocation. Increased acromiohumeral interval suggesting rotator cuff pathology. Degenerative arthropathy of the glenohumeral navicular joint. Joint space alignment otherwise maintained. Subcutaneous nodular focus along the posterior aspect of the mid humeral diaphysis measuring 6 mm nonspecific though may reflect a region of dystrophic calcification. Visualized portions of the chest are unremarkable. XR/XR shoulder LT min 2V IMPRESSION: 1. No acute visible fracture or dislocation. 2. Increased acromiohumeral interval suggesting rotator cuff pathology. 3. Degenerative arthropathy of the glenohumeral navicular joint. 4. Subcutaneous nodular focus along the posterior aspect of the mid humeral diaphysis measuring 6 mm nonspecific though may reflect a region of dystrophic calcification. Electronically signed by: Michael Srinivasan MD 05/11/2024 12:44 PM EDT
--- NOTE | ~2024-05-11 | XR_ITS ---
EXAMINATION: XR SHOULDER, LEFT XR HUMERUS, LEFT CLINICAL INFORMATION: Pain COMPARISON: None available. TECHNIQUE: 3 views of the left shoulder 2 views of the left humerus FINDINGS: No acute visible fracture or dislocation. Increased acromiohumeral interval suggesting rotator cuff pathology. Degenerative arthropathy of the glenohumeral navicular joint. Joint space alignment otherwise maintained. Subcutaneous nodular focus along the posterior aspect of the mid humeral diaphysis measuring 6 mm nonspecific though may reflect a region of dystrophic calcification. Visualized portions of the chest are unremarkable. XR/XR humerus LT IMPRESSION: 1. No acute visible fracture or dislocation. 2. Increased acromiohumeral interval suggesting rotator cuff pathology. 3. Degenerative arthropathy of the glenohumeral navicular joint. 4. Subcutaneous nodular focus along the posterior aspect of the mid humeral diaphysis measuring 6 mm nonspecific though may reflect a region of dystrophic calcification. Electronically signed by: Michael Srinivasan MD 05/11/2024 12:44 PM EDT
[2024-05-11 10:49] VITALS: BP 128/79; PULSE 67; RESP 16; TEMP 36.6; O2SAT 100; BMI 26.1
--- NOTE | 2024-05-11 12:10 | ED_ITS ---
HPI - Extremity Problem General Chief complaint: Extremity Injury, Upper Stated complaint: L arm pain Time Seen by Provider: 05/11/24 11:47 Source: patient Mode of arrival: ambulatory Limitations: no limitations History of Present Illness ED Provider: Jessy OTT HPI Narrative: 54-year-old female with pmh arthritis, osteoporosis, bilateral shoulder surgery and fibromyalgia presenting to the emergency room today with left-sided arm and shoulder pain that started about a week ago and has progressively gotten worse. Patient is on chronic Percocet but has not taken any or other pain medication because she wants to evaluate her acute arm pain. The pain is reproducible with movement and radiates from her elbow to her neck, severity 10/10. Denies chest pain, sob, trauma to the area, numbess/tingling in fingers., fevers, chills Related Data Home Medications ?Medication ?Instructions ?Recorded ?Confirmed cyanocobalamin (vitamin B-12) 1,000 mcg PO DAILY 11/22/21 03/27/24 1,000 mcg tablet,extended release duloxetine 30 mg capsule,delayed 30 mg PO DAILY 11/22/21 03/27/24 release hydrochlorothiazide 25 mg tablet 25 mg PO DAILY 11/22/21 03/27/24 multivitamin with folic acid 400 1 tab PO DAILY 11/22/21 03/27/24 mcg tablet (Daily-Fabiano (with folic acid)) oxycodone-acetaminophen 5 mg-325 1 tab PO Q8H PRN 11/22/21 03/27/24 mg tablet (Percocet) cetirizine 10 mg tablet 10 mg PO DAILY 06/06/22 03/27/24 cholecalciferol (vitamin D3) 50 2,000 unit PO 07/25/22 03/27/24 mcg (2,000 unit) capsule Previous Rx's ?Medication ?Instructions ?Recorded omeprazole magnesium 20 mg 20 mg PO DAILY #30 tabs 09/13/21 tablet,delayed release (Prilosec OTC) bisacodyl 5 mg tablet,delayed 10 mg (2 x 5 mg) PO ONCE 11/22/21 release (Dulcolax (bisacodyl)) colonoscopy prep 1 day #2 tabs polyethylene glycol 3350 17 238 g PO ONCE 1 day #238 grams 11/22/21 gram/dose oral powder (Miralax) ondansetron 4 mg disintegrating 4 mg PO DAILY PRN nausea and 11/27/23 tablet vomiting 5 days #10 tabs estradiol 0.01% (0.1 mg/gram) See Rx Instructions vaginal DAILY 03/27/24 vaginal cream (Estrace) #42.5 grams prednisone 20 mg tablet 20 mg PO DAILY 5 days #5 tabs 05/11/24 Allergies Allergy/AdvReac Type Severity Reaction Status Date / Time ibuprofen [From Motrin] Allergy Intermediate RASH Verified 05/11/24 10:50 Review of Systems Review of Systems: Yes all other systems are reviewed and are negative FORMERLY [facility] Past Medical History Attestation statement: The following information was validated with the patient. Medical History Vitamin B deficiency Vitamin D deficiency Hernia Hypertension Surgical History Hx of hernia repair History of esophagogastroduodenoscopy (EGD) Gastric bypass status for obesity Family History Family History Mother Diabetes HTN (hypertension) High cholesterol Father Diabetes HTN (hypertension) High cholesterol Maternal Grandmother Diabetes HTN (hypertension) Paternal Grandfather Diabetes Social History Social History Household Members Other:: husbasnd- 2 kids @ home Alcohol intake: never Patient Tobacco Use Status: Never used Tobacco Advance Directives: No Advance Directives Information Provided: No Do you have a plan to hurt others: No Plan Physical Exam Vital Signs: Vital Signs: Last Vital Signs Temp 97.9 F 05/11/24 10:49 Pulse 67 05/11/24 10:49 Resp 16 05/11/24 10:49 BP 128/79 05/11/24 10:49 Pulse Ox 100 05/11/24 10:49 O2 Del Method Room Air 05/11/24 10:49 BMI result Body Mass Index 26.1 VSS Appearance: Alert.? Oriented X3.? No acute distress.? Head: Normocephalic, atraumatic, no step-offs or deformities Eyes: Pupils equal, round and reactive to light.? Neck: Normal inspection.? Neck supple.? CVS: Normal heart rate and rhythm.? Pulses normal.? Respiratory: No respiratory distress.? Breath sounds normal.? Abdomen: Soft and nontender.? Skin: Skin warm and dry.? Normal skin color.? Normal skin turgor.? Extremities: No lower extremity edema.? No calf ttp. 5/5 strength to bilateral upper and lower extremities; decreased active ROM of R shoulder, tenderness to p alpation of R shoulder, arm and neck; radial pulses 2+ and symmetric Neuro: Oriented X 3.? No motor deficit.? No sensory deficit. CN 2-12 intact Course Reevaluation(s) Reevaluation #1: No acute fracture dislocation noted increased AC interval suggesting rotator cuff pathology she does have history of rotator cuff surgery question rotator cuff tendinitis, degenerative arthropathy of the glenohumeral navicular joint. Subcutaneous nodular focus along the posterior aspect of the mid humeral d iaphysis measuring 6 mm nonspecific I will have her follow-up with the orthopedic team. Now patient points to her left biceps and tells me she is having pain there, there is no step-offs or deformities low suspicion for bicep tendon rupture, will have her follow-up with the orthopedic team. In the meantime will be placed in a sling. She does have Percocet at home I told her she could continue taking these for pain as prescribed, will give her prednisone for inflammatory response. Educated patient on diagnosis and treatment plan, answered all question, patient verbalizes understanding. At this time patient will be discharged home, advised to return with new or worsening symptoms. Educated on worrisome signs and symptoms and when to return. At this time I feel comfortable discharge home. Time: 14:18 Medications Administered Discontinued Medications Generic Name Dose Route Start Last Admin Trade Name Marv PRN Reason Stop Dose Admin Acetaminophen 650 mg 05/11/24 12:36 05/11/24 13:17 Acetaminophen 325 Mg Tablet PO 05/11/24 12:37 650 mg ONCE ONE Administration Morphine Sulfate 15 mg 05/11/24 12:36 05/11/24 13:17 Morphine Sulfate Immed Release 15 Mg Tablet PO 05/11/24 12:37 15 mg ONCE ONE Administration Medical Decision Making Medical Decision Making MDM Narrative: 54-year-old female with pmh arthritis, osteoporosis, bilateral shoulder surgery and fibromyalgia presenting to the emergency room today with left-sided arm and shoulder pain that started about a week ago and has progressively gotten worse. PE - decreased active ROM of R shoulder, tenderness to palpation of R shoulder, arm and neck; radial pulses 2+ and symmetric Hx and pe concerning for inflammatory arthritis vs muscle sprain/strain. Unlikely dislocation, fracture, acute limb, frozen shoulder, cervical radiculopathy, ACS Plan - imaging Differential Diagnosis Differential Diagnoses: The differential diagnosis associated with the presentation includes Hx and pe concerning for inflammatory arthritis vs muscle sprain/strain. Unlikely dislocation, fracture, acute limb, frozen shoulder, cervical radiculopathy, ACS Admission/Observation Consideration of admission/observation: Escalation of care including admission/observation considered Independent Interpretation I performed an independent interpretation of an: EKG (Vent. Rate : 052 BPM Atrial Rate : 052 BPM P-R Int : 162 ms QRS Dur : 080 ms QT Int : 438 ms P-R-T Axes : 051 075 060 degrees QTc Int : 407 ms Sinus bradycardia Otherwise normal ECG When compared with ECG of 28-JUN-2021 02:25, QT has shortened ) and Plain X-Ray (XR/XR shoulder LT min 2V IMPRESSION: 1. No acute visible fracture or dislocation. 2. Increased acromiohumeral interval suggesting rotator cuff pathology. 3. Degenerative arthropathy of the glenohumeral navicular joint. 4. Subcutaneous nodular focus along the posterior aspect of the mid humeral ) Radiology Impression Discussion of test interpretation with radiology: I have reviewed the radiologist's reading. Prescription Management I considered prescription management with: Pain Medication Discharge Plan Discharge Clinical Impression: Rotator cuff strain Patient Disposition: Home, Self-Care Instructions: Muscle Strain (ED), Rotator Cuff Injury (ED), Rotator Cuff Injury Exercises (DC) Additional Instructions: Take your medications as prescribed. If you were prescribed antibiotics today, it is important that you take your medication to their entirety, do not skip any doses, do not finish them early. Follow-up with your primary care provider this week. Return to the emergency department with new or worsening symptoms. Such as fevers, chills, chest pain, shortness of breath, nausea, vomiting, dizziness, headache, vision changes, lethargy In case of emergency call 911 Please wear sling during the day, and frequently do [id number] exercises, do not wear the sling overnight. XR/XR shoulder LT min 2V IMPRESSION: 1. No acute visible fracture or dislocation. 2. Increased acromiohumeral interval suggesting rotator cuff pathology. 3. Degenerative arthropathy of the glenohumeral navicular joint. 4. Subcutaneous nodular focus along the posterior aspect of the mid humeral diaphysis measuring 6 mm nonspecific though may reflect a region of dystrophic calcification. Prescriptions: New prednisone 20 mg tablet 20 mg PO DAILY 5 Days Qty: 5 0RF No Action omeprazole magnesium [Prilosec OTC] 20 mg tablet,delayed release (DR/EC) 20 mg PO DAILY Qty: 30 0RF ondansetron 4 mg tablet,disintegrating 4 mg PO DAILY PRN (Reason: nausea and vomiting) 5 Days Qty: 10 0RF duloxetine 30 mg capsule,delayed release(DR/EC) 30 mg PO DAILY cyanocobalamin (vitamin B-12) 1,000 mcg tablet extended release 1,000 mcg PO DAILY multivitamin with folic acid [Daily-Fabiano (with folic acid)] 400 mcg tablet 1 tab PO DAILY hydrochlorothiazide 25 mg tablet 25 mg PO DAILY oxycodone-acetaminophen [Percocet] 5-325 mg tablet 1 tab PO Q8H PRN bisacodyl [Dulcolax (bisacodyl)] 5 mg tablet,delayed release (DR/EC) 10 mg PO ONCE 1 Days Qty: 2 0RF Rx Instructions: Take 2 tablets by mouth at 12:00pm the day before your procedure. polyethylene glycol 3350 [Miralax] 17 gram/dose powder 238 g PO ONCE 1 Days Qty: 238 0RF Rx Instructions: Take as directed by mouth the day before your procedure. cetirizine 10 mg tablet 10 mg PO DAILY cholecalciferol (vitamin D3) 50 mcg (2,000 unit) capsule 2,000 unit PO estradiol [Estrace] 0.01 % (0.1 mg/gram) cream See Rx Instructions vaginal DAILY Qty: 42.5 1RF Rx Instructions: pea sized amount on fingertip a qhs vaginally vaginally daily; Referrals: [facility] [place] [facility] [Provider Group] - 2 days Print Language: Welsh
--- NOTE | 2024-05-11 12:37 | ECG_ITS ---
Test Reason : RUE PAIN Blood Pressure : / mmHG Vent. Rate : 052 BPM Atrial Rate : 052 BPM P-R Int : 162 ms QRS Dur : 080 ms QT Int : 438 ms P-R-T Axes : 051 075 060 degrees QTc Int : 407 ms Sinus bradycardia Otherwise normal ECG When compared with ECG of 28-JUN-2021 02:25, QT has shortened Referred By: Dany Munoz Electronically Signed By:HORACE MENDOZA
[2024-05-11] MEDS: Morphine Sulfate Immed Release 15 MG TABLET PO (13:17)
[2024-05-11] MEDS: Acetaminophen 325 MG TABLET 650 MG PO (13:17)
[2024-05-11 14:30] VITALS: BP 122/74; PULSE 64; RESP 16; TEMP 36.8; O2SAT 98
== END 2024-05-11 14:48 | disposition home or self-care (01) ==
PROVIDERS: Emergency Provider Emergency Medicine; PCP Pediatrics
DX: S46.012A Strain of muscle(s) and tendon(s) of the rotator cuff of left shoulder, initial encounter (principal); X58.XXXA Exposure to other specified factors, initial encounter; Y93.9 Activity, unspecified; Y92.9 Unspecified place or not applicable; Y99.9 Unspecified external cause status; M79.622 Pain in left upper arm; M25.512 Pain in left shoulder; Z79.899 Other long term (current) drug therapy
CPT/HCPCS: 73030; 73060; 93005; 99283; 99284

== ENCOUNTER 2024-05-15 11:13 | Outpatient (AMB) | payer OTHER, SELFPAY ==
[2024-05-15 11:17] VITALS: BMI 26.0
--- NOTE | 2024-05-15 11:17 | A.OFFVIS_ITS ---
Vital Signs 05/15/24 11:17 Height 5 ft 2 in Weight 142 lb BMI 26.0 Intake Visit Reasons: [employer]-Left Shoulder RTC injury Intake Note: Genet is a 54 year old female who presents with complaints of progressively worsening left shoulder pain and weakness. The patient states that several years ago she underwent ?rotator cuff repair surgery? on both of her shoulders. She reports minimal discomfort in her right shoulder today. Patient states that she injured her left shoulder approximately 1 year ago while lifting a heavy object. Since that time she has had difficulty lifting her left hand above shoulder height. She has failed the last 6 weeks of conservative treatment. She has had injections in the past which gave her minimal relief. She has also done physical therapy exercises which aggravated her pain. She has tried Tylenol, anti-inflammatory medicines and narcotics which gave her minimal relief. Allergies ibuprofen [From Motrin] Allergy (Intermediate, Verified 05/15/24 11:19) RASH Medication List - Last Reconciled 05/15/24 by Vasile Benito MD bisacodyl (Dulcolax (bisacodyl)) 10 mg (2 x 5 mg) PO ONCE 1 day cetirizine 10 mg PO DAILY cholecalciferol (vitamin D3) 2,000 units PO cyanocobalamin (vitamin B-12) ER 1,000 mcg PO DAILY duloxetine 30 mg PO DAILY estradiol 0.01%(0.1mg/gram) (Estrace) pea sized amount on fingertip a qhs vaginally vaginally daily; hydrochlorothiazide 25 mg PO DAILY multivitamin with folic acid 400 mcg (Daily-Fabiano (with folic acid)) 1 tab PO DAILY omeprazole magnesium (Prilosec OTC) 20 mg PO DAILY ondansetron 4 mg PO DAILY PRN 5 days oxycodone-acetaminophen 5-325 mg (Percocet) 1 tab PO Q8H PRN polyethylene glycol 3350 (Miralax) 238 grams PO ONCE 1 day prednisone 20 mg PO DAILY 5 days PFSH Medical History Vitamin B deficiency Vitamin D deficiency Hernia Hypertension Surgical History Hx of hernia repair History of esophagogastroduodenoscopy (EGD) Gastric bypass status for obesity Family History Mother Diabetes HTN (hypertension) High cholesterol Father Diabetes HTN (hypertension) High cholesterol Maternal Grandmother Diabetes HTN (hypertension) Paternal Grandfather Diabetes Social History Household Members Other:: husbasnd- 2 kids @ home Alcohol intake: never Patient Tobacco Use Status: Never used Tobacco Physical Exam Vital Signs: BMI result Body Mass Index 26.0 Const Other: Well-nourished well-developed very friendly female awake alert and oriented x3 in no acute distress Extrem Other: Bilateral upper extremity examination shows good capillary refill, no skin lesions noted, normal sensation light touch Left shoulder examination shows decreased range of motion when compared to her right shoulder, 4+ out of 5 strength with supraspinatus testing, positive impingement signs, tenderness over her acromioclavicular joint, no instability Results Reviewed Results Reviewed: X-rays of the patient's left shoulder show moderate acromioclavicular joint narrowing, a type 2 acromion, no acute bony abnormalities Assessment & Plan Assessment & Plan (1) Left shoulder pain: Code(s): M25.512 - Pain in left shoulder Category: Medical Plan Ms. Figueroa presents with progressively worsening left shoulder pain and weakness due to impingement syndrome as well has possible recurrent rotator cuff tearing. Thus, I will send the patient for an MRI of her left shoulder for further evaluation. I will see her back once the MRI is completed to discuss the findings and treatment options. She will continue with her range of motion exercises in the meantime to prevent stiffness. Feel free to call me at any time should questions regarding her orthopedic management arise. Thank you very much for asking me to see this very friendly patient. I spent 22 minutes in reviewing the patient's records and imaging studies, seeing the patient and documenting in the medical record. Orders: Orders 2 MR shoulder LT wo con Today M25.512 - Pain in left shoulder Coding Level of Care Code New Pt Level 3 (05903) Complex EM visit Add On G2211 Diagnoses Left shoulder pain M25.512
== END 2024-05-15 11:36 | disposition home or self-care (01) ==
PROVIDERS: PCP Pediatrics; Visit Provider Orthopaedic Surgery
DX: M25.512 Pain in left shoulder (principal)
CPT/HCPCS: 99203; G2211

== ENCOUNTER → 2024-05-15 11:13 | Outpatient (BNVA) | payer OTHER, SELFPAY | PROVIDERS: PCP Pediatrics; Visit Provider Orthopaedic Surgery | DX: M25.512 Pain in left shoulder (principal); R53.1 Weakness | CPT/HCPCS: 99202 ==

== ENCOUNTER 2024-05-26 09:48 | Outpatient (REF) | payer OTHER, SELFPAY ==
--- NOTE | ~2024-05-26 | MR_ITS ---
EXAMINATION: MR SHOULDER WITHOUT CONTRAST, LEFT CLINICAL INFORMATION: Left shoulder pain and limited range of motion. Prior rotator cuff tendon repair. COMPARISON: Left shoulder and left humerus radiographs dated 05/11/2024. TECHNIQUE: MRI of the shoulder without contrast was performed on a high-field scanner. FINDINGS: ROTATOR CUFF: Orthopedic anchor within the greater tuberosity consistent with prior rotator cuff tendon repair. Heterogeneity throughout the supraspinatus and infraspinous tendons, consistent with a combination of postsurgical change and tendinosis. Articular surface partial tearing of the junctional fibers measuring approximately 0.7 x 1.7 cm (AP by ML). This involves less than 50 percent of the tendon thickness. No muscle atrophy or fatty infiltration. BICEPS: Mild intra-articular long head biceps tendinosis. No tendon tear. CORACOACROMIAL ARCH: The undersurface of the acromion is attenuated, consistent with acromioplasty. Distal clavicular resection with a joint effusion and degenerative cystic change. Mild adjacent soft tissue edema. Synovial recess versus ganglion cyst along the posterior aspect of the distal clavicle measuring up to 1.0 cm with adjacent soft tissue edema. LABRUM/CAPSULE: No labral tear. Intact inferior joint capsule. GLENOHUMERAL JOINT/MARROW: Anteroinferior glenoid articular cartilage fissuring with underlying subchondral cystic change and mild marrow edema. Tiny marginal osteophytes. Small glenohumeral joint effusion. MR/MR shoulder LT wo con IMPRESSION: 1. Postsurgical change consistent with prior rotator cuff tendon repair. Heterogeneity throughout the supraspinatus and infraspinous tendons, consistent with a combination of postsurgical change and tendinosis. Articular surface partial tearing of the junctional fibers measuring 0.7 x 1.7 cm (AP x ML). This involves less than 50 percent of the tendon thickness. 2. Mild intra-articular long head biceps tendinosis. 3. Distal clavicular resection with a joint effusion and mild adjacent soft tissue edema. Synovial recess versus ganglion cyst posterior to the distal clavicle measuring 1.0 cm with adjacent soft tissue edema. 4. Mild glenohumeral osteoarthritis and small joint effusion. Electronically signed by: Hakeem Ackerman MD 05/27/2024 10:37 AM EDT
== END 2024-05-26 09:49 | disposition home or self-care (01) ==
LOC: HO.MRI 09:48
PROVIDERS: PCP Pediatrics; Visit Provider Orthopaedic Surgery
DX: M25.512 Pain in left shoulder (principal)
CPT/HCPCS: 73221

== ENCOUNTER 2024-05-26 20:39 | Emergency (ER) | payer OTHER, SELFPAY ==
--- NOTE | 2024-05-26 | ECG_ITS ---
Test Reason : ABDOMINAL PAIN Blood Pressure : / mmHG Vent. Rate : 059 BPM Atrial Rate : 059 BPM P-R Int : 158 ms QRS Dur : 072 ms QT Int : 418 ms P-R-T Axes : 059 074 063 degrees QTc Int : 413 ms Sinus bradycardia Otherwise normal ECG When compared with ECG of 11-MAY-2024 12:55, No significant change was found Referred By: Generic ED Physician Electronically Signed By:HORACE MENDOZA
--- NOTE | ~2024-05-26 | CT_ITS ---
EXAMINATION: CT ABDOMEN AND PELVIS WITH CONTRAST CLINICAL INFORMATION: Epigastric pain. COMPARISON: November 27, 2023 TECHNIQUE: Multidetector volumetric images were obtained from the superior aspect of the liver through the pubic symphysis following administration 85 mL of Omnipaque 350 intravenous contrast. Sagittal and coronal reformatted images were obtained on the technologist's workstation. Oral contrast: No This CT examination was performed using dose optimization techniques as appropriate, variously including the following: *Automated exposure control *Adjustment of mA and/or kV according to patient size (this includes techniques or standardized protocols for targeted exams where dose is matched to indication/reason for exam; i.e. extremities or head) *Use of iterative reconstruction technique DLP: 583 mGy-cm FINDINGS: LUNG BASES: Minimal scarring or subsegmental atelectasis at the left lung base. LIVER, GALLBLADDER, AND BILIARY TREE: The liver is normal in size, shape, and attenuation. No focal hepatic lesion or biliary ductal dilatation is present. There has been a prior cholecystectomy. PANCREAS: Unremarkable. SPLEEN: Unremarkable. ADRENAL GLANDS: Unremarkable. KIDNEYS AND URETERS: The kidneys are normal in size, shape, and attenuation. No hydronephrosis, hydroureter, or calculi seen. No perinephric stranding. BLADDER: Unremarkable. GASTROINTESTINAL TRACT: There are diverticula of the transverse and descending colon without evidence for diverticulitis. There is a small hiatal hernia. Gastric and proximal small bowel surgical clips are noted. There is no evidence for bowel obstruction. The appendix is visualized and is within normal limits. ABDOMINAL WALL: No significant hernia is appreciated. LYMPH NODES: Normal. VASCULAR: Unremarkable. PELVIC VISCERA: Unremarkable. OSSEOUS STRUCTURES: Unremarkable. CT/CT abdomen pelvis w IV con IMPRESSION: 1. No acute abnormality within the abdomen or pelvis. 2. Diverticulosis without evidence for diverticulitis. 3. Small hiatal hernia. Fleischner guidelines were followed. Electronically signed by: Sher Mayorga MD 05/27/2024 03:43 AM EDT
[2024-05-26 20:41] VITALS: BP 180/100; PULSE 65; O2SAT 98
[2024-05-26 20:55] LABS: MANUAL DIFF FLAG NO
[2024-05-26 20:57] LABS: Basophils Absolute Auto 0.1 X10*3/uL (0.0-0.2); Basophils Percent Auto 0.8 % (0-2); Eosinophils Absolute Auto 0.3 X10*3/uL (0.0-0.4); Eosinophils Percent Auto 4.6 % (0-4); Hematocrit 42.3 % (37.0-47.0); Hemoglobin 13.8 g/dl (12.0-16.0); Imm Gran Abs Auto 0.02 X10*3/uL (0.00-0.03); Imm Gran Pct Auto 0.3 % (0.0-0.4); Lymphocytes Percent Auto 40.1 % (20-40); Mean Corpuscular HGB Conc 32.6 g/dl (31.0-35.0); Mean Corpuscular Hemoglobin 27.2 pg (27.0-33.0); Mean Corpuscular Volume 83.4 fL (80.0-98.0); Mean Platelet Volume 10.6 fL (9.4-12.3); Monocytes Absolute Auto 0.6 X10*3/uL (0.1-1.2); Monocytes Percent Auto 7.6 % (2-11); Neutrophils Absolute Auto 3.4 x10*3/uL (2.0-8.3); Neutrophils Percent Auto 46.6 % (45-73); Platelet Count 222 X10*3/uL (160-400); Red Blood Count 5.07 X10*6/uL (4.20-5.50); Red Cell Distribution Width 13.6 % (11.0-16.0); White Blood Count 7.4 X10*3/uL (4.8-10.8)
[2024-05-26 20:58] VITALS: BP 151/67; PULSE 55; RESP 20; TEMP 36.8; O2SAT 99; BMI 25.4
[2024-05-26 21:14] LABS: Alanine Aminotransferase 14 U/L (0-31); Albumin Level 4.2 g/dL (3.5-5.0); Alkaline Phosphatase 105 U/L (39-117); Anion Gap 16 (12-20); Aspartate Amino Transferase 28 U/L (5-31); Bilirubin Direct 0.1 mg/dL (0.0-0.5); Bilirubin Total 0.4 mg/dL (0.0-1.0); Blood Urea Nitrogen 10 mg/dL (9-16); Calcium 10.4 mg/dL (8.4-10.2); Carbon Dioxide 23 mmol/L (22-29); Chloride 109 mmol/L (96-108); Creatinine Clr Calc Pharmacy 75.9; Estimated Glomerular Filt Rate > 60; Glucose Random 109 mg/dL (60-115); Lipase 16 U/L (8-78); Potassium 4.7 mmol/L (3.3-5.1); Sodium 143 mmol/L (135-145); Total Protein 8.2 g/dL (6.5-8.0)
--- NOTE | 2024-05-26 21:33 | PC.NURSE ---
verbal order from MD campa to administer 4mg zofran iv for nausea/vomiting
[2024-05-26] MEDS: 0.9 % Sodium Chloride 1,000 ML 999 ML IV (21:38)
[2024-05-26] MEDS: ondansetron HCL 4 MG/2 ML VIAL IVPUSH (21:38)
[2024-05-26 22:39] VITALS: BP 144/72; PULSE 57; RESP 16; TEMP 36.8; O2SAT 99
[2024-05-26 22:51] LABS: Appearance Urine Clear; Color Urine Yellow; Glucose Urine UA Negative (Negative); Leukocyte Esterase Urine Trace (Negative); Nitrite Urine Negative (Negative); PH 5.5 (5.0-9.0); Specific Gravity - Urine 1.015 (1.005-1.025); UMIC TRIGGER UACC YES; Urine Blood Trace (Negative); Urine Ketones Trace mg/dL (Negative); Urine Protein Negative (Neg-Trace)
[2024-05-26 23:17] LABS: Bacteria Urine None Seen (None Seen); Hyaline Casts Urine 0-2 /LPF (0-2); RBC Urine 0-2 /HPF (0-2); Squamous Epithelial Cell Urine 0-2 /HPF (0-2); WBC Urine 0-5 /HPF (0-5)
[2024-05-27 00:28] VITALS: BP 118/60; PULSE 57; RESP 16; TEMP 36.6; O2SAT 98
--- NOTE | 2024-05-27 01:39 | ED.NAVMDI ---
HPI - Nausea/Vomiting/Diarrhea General Chief complaint: Nausea/Vomiting/Diarrhea Stated complaint: Middle Ab pain worsen since last night Time Seen by Provider: 05/27/24 01:08 Source: patient and EMS Mode of arrival: EMS Limitations: no limitations History of Present Illness ED Provider: Dr. Catie Hernandez HPI Narrative: patient comes to the emergency room complaining of epigastric pain, nausea and vomiting for approximately 15 hours. Patient states she had a soft bowel movement, no significant diarrhea. Patient states that she has not been able to eat or drink anything due to the nausea. patient denies using drugs or alcohol. Related Data Home Medications ?Medication ?Instructions ?Recorded ?Confirmed cyanocobalamin (vitamin B-12) 1,000 mcg PO DAILY 11/22/21 05/15/24 1,000 mcg tablet,extended release duloxetine 30 mg capsule,delayed 30 mg PO DAILY 11/22/21 05/15/24 release hydrochlorothiazide 25 mg tablet 25 mg PO DAILY 11/22/21 05/15/24 multivitamin with folic acid 400 1 tab PO DAILY 11/22/21 05/15/24 mcg tablet (Daily-Fabiano (with folic acid)) oxycodone-acetaminophen 5 mg-325 1 tab PO Q8H PRN 11/22/21 05/15/24 mg tablet (Percocet) cetirizine 10 mg tablet 10 mg PO DAILY 06/06/22 05/15/24 cholecalciferol (vitamin D3) 50 2,000 unit PO 07/25/22 05/15/24 mcg (2,000 unit) capsule Previous Rx's ?Medication ?Instructions ?Recorded omeprazole magnesium 20 mg 20 mg PO DAILY #30 tabs 09/13/21 tablet,delayed release (Prilosec OTC) bisacodyl 5 mg tablet,delayed 10 mg (2 x 5 mg) PO ONCE 11/22/21 release (Dulcolax (bisacodyl)) colonoscopy prep 1 day #2 tabs polyethylene glycol 3350 17 238 g PO ONCE 1 day #238 grams 11/22/21 gram/dose oral powder (Miralax) ondansetron 4 mg disintegrating 4 mg PO DAILY PRN nausea and 11/27/23 tablet vomiting 5 days #10 tabs estradiol 0.01% (0.1 mg/gram) See Rx Instructions vaginal DAILY 03/27/24 vaginal cream (Estrace) #42.5 grams prednisone 20 mg tablet 20 mg PO DAILY 5 days #5 tabs 05/11/24 hyoscyamine sulfate 0.125 mg tablet 0.125 mg PO QID PRN dyspepsia #14 05/27/24 tabs metoclopramide HCl 5 mg tablet 5 mg PO . t.i.d. PRN nausea and 05/27/24 vomiting #14 tabs Allergies Allergy/AdvReac Type Severity Reaction Status Date / Time ibuprofen [From Motrin] Allergy Intermediate RASH Verified 05/26/24 21:00 Review of Systems Review of Systems: Constitutional : No Weight loss, No Fever, No Chills, No Night Sweats, No Fatigue, No Malaise ENT/Mouth : No Hearing loss, No Ear Pain, No Nasal Congestion, No Sinus Pain, No Hoarseness, No sore throat, No Rhinorrhea, No Swallowing Difficulty Eyes: No Eye Pain, No Swelling, No Redness, No Foreign Body, No Discharge, No Vision Changes Cardiovascular : No Chest Pain, No SOB, No Dyspnea on Exertion, No Orthopnea, No Edema, No Palpitations Respiratory : No Cough, No Sputum, No Wheezing, No Smoke Exposure, No Dyspnea Gastrointestinal : Patient complaining of nausea vomiting, no constipation, soft bowel movement x1, epigastric abdominal pain Genitourinary : no irregular bleeding, No Dysuria, No Urinary Frequency, No Hematuria, No Urinary Incontinence, No Urgency, No Flank Pain, No Urinary Flow Changes, No Hesitancy Musculoskeletal : No joint pain, No Myalgias, No Joint Swelling Skin : No Skin Lesions, No rash Neuro : No Weakness, No Numbness, No Paresthesias, No Loss of Consciousness, No Dizziness, No Headache Psych : No Anxiety/Panic, No Depression, No SI/HI/AH/VH, No Social Issues, Heme/Lymph: No Bruising, No Bleeding,No Lymphadenopathy Endocrine : No Polyuria, No Polydipsia, No Temperature Intolerance PMFSH Past Medical History Medical History Vitamin B deficiency Vitamin D deficiency Hernia Hypertension Surgical History Hx of hernia repair History of esophagogastroduodenoscopy (EGD) Gastric bypass status for obesity Family History Family History Mother Diabetes HTN (hypertension) High cholesterol Father Diabetes HTN (hypertension) High cholesterol Maternal Grandmother Diabetes HTN (hypertension) Paternal Grandfather Diabetes Social History Social History Household Members Other:: husbasnd- 2 kids @ home Unable to assess alcohol history related to: Unknown Alcohol intake: never Patient Tobacco Use Status: Never used Tobacco Substance Use Type: Marijuana Advance Directives: No Advance Directives Information Provided: No Do you have a plan to hurt others: No Plan Patient : No Physical Exam Vital Signs: Vital Signs: Last Vital Signs Temp 97.8 F 05/27/24 00:28 Pulse 57 05/27/24 00:28 Resp 16 05/27/24 00:28 BP 118/60 05/27/24 00:28 Pulse Ox 98 05/27/24 00:28 O2 Del Method Room Air 05/27/24 00:28 BMI result Body Mass Index 25.4 Const: Other: Appearance: Alert. Oriented X3. No acute distress. Eyes: Pupils equal, round and reactive to light. ENT: Pharynx normal. Neck: Normal inspection. Neck supple. No lymph nodes noted. No crepitus CVS: Normal heart rate and rhythm. Pulses normal. Normal S1 and S2 Respiratory: No respiratory distress. Breath sounds normal. No Wheezing. No rales Abdomen: Soft, discomfort to palpation in epigastric area, exaggerated response to mild palpation Skin: Skin warm and dry. Normal skin color. Normal skin turgor. Extremities: No lower extremity edema. No Lacerations. No Rash Neuro: Oriented X 3. No motor deficit. No sensory deficit. Moving all extremities. No slurred speech. CN 2 through 12 grossly intact Psych: calm, cooperative, normal affect Course Course Course Narrative: Patient has had multiple evaluations for the same symptoms including abdominal pain, nausea and vomiting. - Reviewing patient's past workups, CT scans and lab workup are negative for anything specific. - For comfort at this time, patient receiving IV fluids, Reglan and morphine Medications Administered Generic Name Dose Route Start Last Admin Trade Name Freq PRN Reason Stop Dose Admin Sodium Chloride 1,000 mls @ 999 mls/hr 05/27/24 01:37 05/27/24 01:57 Ns IVCONT 05/27/24 02:37 999 mls/hr .Q1H1M ONE Administration Discontinued Medications Generic Name Dose Route Start Last Admin Trade Name Marv PRN Reason Stop Dose Admin Sodium Chloride 1,000 mls @ 999 mls/hr 05/26/24 21:45 05/26/24 22:47 Ns IV 05/26/24 22:45 Infused .Q1H1M VEDA Infusion Iohexol 85 ml 05/27/24 02:19 05/27/24 02:19 Iohexol 350 Mg/Ml 100 Ml Infus..Btl IV 05/27/24 02:20 85 ml ONCE ONE Administration Metoclopramide HCl 10 mg 05/27/24 01:37 05/27/24 01:51 Metoclopramide Hcl 10 Mg/2 Ml Vial IVPUSH 05/27/24 01:38 10 mg ONCE ONE Administration Morphine Sulfate 4 mg 05/27/24 01:42 05/27/24 01:55 Morphine Sulfate 4 Mg/Ml Cartridge IVPUSH 05/27/24 01:43 4 mg ONCE ONE Administration Protocol Ondansetron HCl 4 mg 05/26/24 21:29 05/26/24 21:38 Ondansetron Hcl 4 Mg/2 Ml Vial IVPUSH 05/26/24 21:30 4 mg ONCE ONE Administration Medical Decision Making Medical Decision Making [facility] Narrative: my interpretation of labs, normal hematology, normal chemistry, normal lipase, normal LFTs, negative urinalysis - my interpretation of CT scan, no obvious abnormalities, there are chronic changes from the gastric bypass. No SBO - after patient received the IV treatment as above-mentioned, patient no longer vomiting or crying - patient has had multiple evaluations for the same complaint. - CT scan results pending - sign-out given to my colleague Dr. Pedro Differential Diagnosis Differential Diagnoses: The differential diagnosis associated with the presentation includes ( gastritis, gastroenteritis, gastric sleeve issue, pancreatitis, SBO, cyclical vomiting) Admission/Observation Consideration of admission/observation: Escalation of care including admission/observation considered ( given patient's presentation, observation was considered) Lab Data [facility] Lab Attestation statement: I reviewed the patient's lab results. 05/26/24 20:51 05/26/24 20:51 Labs: Lab Results 09/17/24 09/17/24 Range/Units 20:51 22:39 WBC 7.4 (4.8-10.8) X10*3/uL RBC 5.07 (4.20-5.50) X10*6/uL Hgb 13.8 (12.0-16.0) g/dl Hct 42.3 (37.0-47.0) % MCV 83.4 (80.0-98.0) fL MCH 27.2 (27.0-33.0) pg MCHC 32.6 (31.0-35.0) g/dl RDW 13.6 (11.0-16.0) % Plt Count 222 (160-400) X10*3/uL MPV 10.6 (9.4-12.3) fL Immature Gran % (Auto) 0.3 (0.0-0.4) % Neut % (Auto) 46.6 (45-73) % Lymph % (Auto) 40.1 H (20-40) % [place] % (Auto) 7.6 (2-11) % Eos % (Auto) 4.6 H (0-4) % Baso % (Auto) 0.8 (0-2) % Lymph # (Auto) 3.0 (1.2-4.9) X10*3/uL [place] # (Auto) 0.6 (0.1-1.2) X10*3/uL Eos # (Auto) 0.3 (0.0-0.4) X10*3/uL Baso # (Auto) 0.1 (0.0-0.2) X10*3/uL Abs Immat Gran (auto) 0.02 (0.00-0.03) X10*3/uL Absolute Neuts (auto) 3.4 (2.0-8.3) x10*3/uL Absolute Nucleated RBC 0.000 (0.0-0.012) X10*3/uL Nucleated RBC % (auto) 0.0 (0.0-0.2) /100WBC Sodium 143 (135-145) mmol/L Potassium 4.7 D (3.3-5.1) mmol/L Chloride 109 H (96-108) mmol/L Carbon Dioxide 23 (22-29) mmol/L Anion Gap 16 (12-20) BUN 10 (9-16) mg/dL Creatinine 0.73 (0.5-1.4) mg/dL Estim Creat Clear Calc 75.9 Estimated GFR > 60 Random Glucose 109 (60-115) mg/dL Calcium 10.4 H (8.4-10.2) mg/dL Total Bilirubin 0.4 (0.0-1.0) mg/dL Direct Bilirubin 0.1 (0.0-0.5) mg/dL AST 28 (5-31) U/L ALT 14 (0-31) U/L Alkaline Phosphatase 105 (39-117) U/L Total Protein 8.2 H (6.5-8.0) g/dL Albumin 4.2 (3.5-5.0) g/dL Lipase 16 (8-78) U/L Urine Color Yellow Urine Appearance Clear Urine pH 5.5 (5.0-9.0) Ur Specific [place] 1.015 (1.005-1.025) Urine Protein Negative (Neg-Trace) mg/dL Urine Glucose (UA) Negative (Negative) mg/dL Urine Ketones Trace (Negative) mg/dL Urine Blood Trace H (Negative) Urine Nitrite Negative (Negative) Ur Leukocyte Esterase Trace H (Negative) Urine RBC 0-2 (0-2) /HPF Urine WBC 0-5 (0-5) /HPF Ur Squamous Epith Cells 0-2 (0-2) /HPF Urine Bacteria None Seen (None Seen) Hyaline Casts 0-2 (0-2) /LPF Independent Interpretation I performed an independent interpretation of an: CT Scan Critical Care Time Critical Care Time Critical Care Time: Yes Total Critical Care Time: 45 Attestation: I have personally provided critical care time. Time includes review of lab data, radiology results, discussion with consultants, and monitoring for potential decompensation. Intervention performed as documented. Discharge Plan Discharge Clinical Impression: Abdominal pain, Nausea & vomiting Patient Disposition: Still a Patient Instructions: Acute Abdominal Pain (ED), Abdominal Pain (ED) Additional Instructions: Please follow-up with your primary care physician tomorrow. If you have any worsening or new symptoms, please return to the emergency room or call 911 Prescriptions: New hyoscyamine sulfate 0.125 mg tablet 0.125 mg PO QID PRN (Reason: dyspepsia) Qty: 14 0RF metoclopramide HCl 5 mg tablet 5 mg PO . t.i.d. PRN (Reason: nausea and vomiting) Qty: 14 0RF No Action omeprazole magnesium [Prilosec OTC] 20 mg tablet,delayed release (DR/EC) 20 mg PO DAILY Qty: 30 0RF prednisone 20 mg tablet 20 mg PO DAILY 5 Days Qty: 5 0RF ondansetron 4 mg tablet,disintegrating 4 mg PO DAILY PRN (Reason: nausea and vomiting) 5 Days Qty: 10 0RF duloxetine 30 mg capsule,delayed release(DR/EC) 30 mg PO DAILY cyanocobalamin (vitamin B-12) 1,000 mcg tablet extended release 1,000 mcg PO DAILY multivitamin with folic acid [Daily-Fabiano (with folic acid)] 400 mcg tablet 1 tab PO DAILY hydrochlorothiazide 25 mg tablet 25 mg PO DAILY oxycodone-acetaminophen [Percocet] 5-325 mg tablet 1 tab PO Q8H PRN bisacodyl [Dulcolax (bisacodyl)] 5 mg tablet,delayed release (DR/EC) 10 mg PO ONCE 1 Days Qty: 2 0RF Rx Instructions: Take 2 tablets by mouth at 12:00pm the day before your procedure. polyethylene glycol 3350 [Miralax] 17 gram/dose powder 238 g PO ONCE 1 Days Qty: 238 0RF Rx Instructions: Take as directed by mouth the day before your procedure. cetirizine 10 mg tablet 10 mg PO DAILY cholecalciferol (vitamin D3) 50 mcg (2,000 unit) capsule 2,000 unit PO estradiol [Estrace] 0.01 % (0.1 mg/gram) cream See Rx Instructions vaginal DAILY Qty: 42.5 1RF Rx Instructions: pea sized amount on fingertip a qhs vaginally vaginally daily; Print Language: Japanese
[2024-05-27] MEDS: Metoclopramide HCl 10 MG/2 ML VIAL IVPUSH (01:51)
[2024-05-27] MEDS: Morphine Sulfate 4 MG/ML CARTRIDGE IVPUSH (01:55)
[2024-05-27] MEDS: iohexoL 350 MG/ML 100 ML INFUS..BTL 85 ML IV (02:19)
[2024-05-27] MEDS: 0.9 % Sodium Chloride 1,000 ML 999 ML IVCONT (02:35)
[2024-05-27 03:48] VITALS: BP 147/71; PULSE 65; RESP 15; TEMP 36.6; O2SAT 96
[2024-05-27] MEDS: ondansetron HCL 4 MG/2 ML VIAL IVPUSH (04:38)
[2024-05-27 04:45] VITALS: BP 147/71; PULSE 65; RESP 15; TEMP 36.6; O2SAT 96
--- NOTE | 2024-05-27 04:45 | PC.NURSE ---
pt reports nausea, medicated per nov. pt reports pain, MD aware of pain stated for pt to f/u with pcp/GI doc.
== END 2024-05-27 05:19 | disposition home or self-care (01) ==
PROVIDERS: Emergency Provider Emergency Medicine
DX: R11.2 Nausea with vomiting, unspecified (principal); R10.13 Epigastric pain; R00.1 Bradycardia, unspecified; R10.2 Pelvic and perineal pain; Z79.899 Other long term (current) drug therapy; Z98.84 Bariatric surgery status
CPT/HCPCS: 36415; 73221; 74177; 80048; 80076; 81001; 83690; 85025; 93005; 96361; 96374; 96375; 96376; 99285; J2270; J2405; J2765; Q9967

== ENCOUNTER 2024-06-10 14:39 | Outpatient (AMB) | payer OTHER, SELFPAY ==
--- NOTE | 2024-06-10 14:40 | MHC.OFFVIS ---
Intake Visit Reasons: MRI review of left shoulder Intake Note: Genet is a 54 year old female who presents with complaints of progressively worsening left shoulder pain. The patient states that several years ago she underwent ?rotator cuff repair surgery? on both of her shoulders. She reports minimal discomfort in her right shoulder today. Patient states that she injured her left shoulder approximately 1 year ago while lifting a heavy object. Since that time she has had difficulty lifting her left hand above shoulder height. She has failed the last 6 weeks of conservative treatment. She has had injections in the past which gave her minimal relief. She has also done physical therapy exercises which aggravated her pain. She has tried Tylenol, anti-inflammatory medicines and narcotics which gave her minimal relief. Allergies ibuprofen [From Motrin] Allergy (Intermediate, Verified 06/10/24 14:41) RASH Medication List - Last Reconciled 06/11/24 by Vasile Benito MD bisacodyl (Dulcolax (bisacodyl)) 10 mg (2 x 5 mg) PO ONCE 1 day cetirizine 10 mg PO DAILY cholecalciferol (vitamin D3) 2,000 units PO cyanocobalamin (vitamin B-12) ER 1,000 mcg PO DAILY duloxetine 30 mg PO DAILY estradiol 0.01%(0.1mg/gram) (Estrace) pea sized amount on fingertip a qhs vaginally vaginally daily; hydrochlorothiazide 25 mg PO DAILY hyoscyamine sulfate 0.125 mg PO QID PRN metoclopramide HCl 5 mg PO . t.i.d. PRN multivitamin with folic acid 400 mcg (Daily-Fabiano (with folic acid)) 1 tab PO DAILY omeprazole magnesium (Prilosec OTC) 20 mg PO DAILY ondansetron 4 mg PO DAILY PRN 5 days oxycodone-acetaminophen 5-325 mg (Percocet) 1 tab PO Q8H PRN polyethylene glycol 3350 (Miralax) 238 grams PO ONCE 1 day prednisone 20 mg PO DAILY 5 days PFSH Medical History Vitamin B deficiency Vitamin D deficiency Hernia Hypertension Surgical History Hx of hernia repair History of esophagogastroduodenoscopy (EGD) Gastric bypass status for obesity Family History Mother Diabetes HTN (hypertension) High cholesterol Father Diabetes HTN (hypertension) High cholesterol Maternal Grandmother Diabetes HTN (hypertension) Paternal Grandfather Diabetes Social History Household Members Other:: husbasnd- 2 kids @ home Unable to assess alcohol history related to: Unknown Alcohol intake: never Patient Tobacco Use Status: Never used Tobacco Substance Use Type: Marijuana Physical Exam Const Other: Well-nourished well-developed very friendly female awake alert and oriented x3 in no acute distress Extrem Other: Bilateral upper extremity examination shows good capillary refill, no skin lesions noted, normal sensation light touch Left shoulder examination shows that the surgical incisions are well healed, no erythema, decreased active and passive range of motion when compared to her right shoulder, 4+ out of 5 strength with supraspinatus testing, positive impingement signs, tenderness over her acromioclavicular joint, no instability Results Reviewed Results Reviewed: MRI of the patient's left shoulder shows 1 suture anchor in good position with no signs of loosening, a type 2 acromion, acromioclavicular joint narrowing, signal change within the supraspinatus tendon most likely due to adhesive capsulitis Assessment & Plan Assessment & Plan (1) Impingement syndrome of left shoulder: Code(s): M75.42 - Impingement syndrome of left shoulder Category: Medical Plan Ms. Figueroa presents with left shoulder pain and stiffness due to impingement syndrome, acromioclavicular joint arthritis and adhesive capsulitis. I had a lengthy discussion with the patient regarding the treatment options. At this point she has failed continued non operative treatments. The risks and benefits of left shoulder surgery were discussed at length with the patient. The patient wishes to proceed with surgery. Surgery will most likely involve left shoulder diagnostic arthroscopy with distal clavicle excision, acromioplasty, capsular release and manipulation under anesthesia. The patient will be scheduled for next available date. She will follow-up as instructed. Feel free to call me at any time should questions regarding her orthopedic management arise. I spent 22 minutes in reviewing the patient's records and imaging studies, seeing the patient and documenting in the medical record. Coding Level of Care Code Est Pt Level 3 (18003) Complex EM visit Add On G2211 Diagnoses Impingement syndrome of left shoulder M75.42
== END 2024-06-10 15:04 | disposition home or self-care (01) ==
PROVIDERS: PCP Pediatrics; Visit Provider Orthopaedic Surgery
DX: M75.42 Impingement syndrome of left shoulder (principal)
CPT/HCPCS: 99214; G2211

== ENCOUNTER → 2024-06-10 14:39 | Outpatient (BNVA) | payer OTHER, SELFPAY | PROVIDERS: PCP Pediatrics; Visit Provider Orthopaedic Surgery | DX: M75.42 Impingement syndrome of left shoulder (principal) | CPT/HCPCS: 99212 ==

== ENCOUNTER 2024-07-03 08:40 | Day surgery (SDC) | payer OTHER, SELFPAY ==
[2024-06-23 13:53] VITALS: BMI 26.2
--- NOTE | 2024-06-23 15:21 | P.CONAN_ITS ---
Documented by User: Monica Miller NP 06/23/24 15:25 HPI - Anesthesia Eval Consult details Narrative: 54yo F for Left Shoulder Arthroscopy, distal clavicle excision, acromioplasty, capsular release and manipulation [facility] 05/2024 with recurring abdominal pain d/t hx gastric bypass. Had EGD with dilation. (2021 cardiac w/u shows abdominal pain, noncardiac and prn f/u only) [facility] Active Problems Active Problems: All Active Problems Impingement syndrome of left shoulder (Acute) Left shoulder pain (Acute) Vaginal atrophy (Acute) Urinary urgency (Acute) Microscopic hematuria (Acute) Palpitations (Acute) Shortness of breath (Acute) Precordial chest pain (Acute) Encounter for screening colonoscopy (Acute) Past Medical History Medical History Abdominal pain Hiatal hernia Chest discomfort Vitamin B deficiency Vitamin D deficiency Hypertension Family History Family History Mother Diabetes HTN (hypertension) High cholesterol Father Diabetes HTN (hypertension) High cholesterol Maternal Grandmother Diabetes HTN (hypertension) Paternal Grandfather Diabetes Surgical History Surgical History H/O carpal tunnel repair History of endometrial ablation Hx of repair of right rotator cuff Hx of hernia repair History of esophagogastroduodenoscopy (EGD) Gastric bypass status for obesity Social History Social History Household Members Other:: - 2 kids @ home Housing Other:: 2 family house Are you a primary healthcare customer service to a significant other at home: No Do you presently have visiting nurse or other home services: No Unable to assess alcohol history related to: Unknown Alcohol intake: never Comment: occasionally uses cane Patient Tobacco Use Status: Former Tobacco user Tobacco use type: Cigarette Years Smoked: 25 Use of substances other than those prescribed or required for medical reasons: No Substance Use Type: Marijuana Have you been hit, kicked, punched, or otherwise hurt by someone within the past year? If so, by whom?: No Spiritual Healthcare Practices: none Zoroastrianism Healthcare Practices: Jewish Cultural Healthcare Practices: none Are you DNR?: No Advance Directives Information Provided: Yes (as above noted) Advance Directives on File: No Recently lost weight without trying: No Eating poorly because of decreased appetite: No Nutrition Risks: No Nutritional Risk Patient : No FDLMP: n/a Poor oral hygiene: No (upper teeth-has posts for implants/some missing lower teeth) Meds Allergies Allergy/AdvReac Type Severity Reaction Status Date / Time ibuprofen [From Motrin] Allergy Intermediate RASH Verified 06/10/24 14:41 incense Allergy Intermediate Rash Uncoded 07/03/24 09:17 Home Medications ?Medication ?Instructions ?Recorded ?Confirmed ?Last Taken ?Type cyanocobalamin (vitamin B-12) 1,000 mcg PO DAILY 11/22/21 07/03/24 Unknown History 1,000 mcg tablet,extended release duloxetine 30 mg capsule,delayed 30 mg PO DAILY 11/22/21 07/03/24 Unknown History release multivitamin with folic acid 400 1 tab PO DAILY 11/22/21 07/03/24 Unknown History mcg tablet (Daily-Fabiano (with folic acid)) oxycodone-acetaminophen 5 mg-325 1 tab PO Q8H PRN Pain 11/22/21 07/03/24 07/02/24 History mg tablet (Percocet) cetirizine 10 mg tablet 10 mg PO DAILY 06/06/22 07/03/24 Unknown History cholecalciferol (vitamin D3) 50 2,000 unit PO DAILY 07/25/22 07/03/24 Unknown History mcg (2,000 unit) capsule scopolamine base 1 mg over 3 days 1 patch topical Q3D PRN Nausea 06/23/24 07/03/24 07/03/24 History transdermal patch Exam Height,Weight and Vital Signs: Height 5 ft 2 in Weight 64.864 kg Pertinent Lab Results Pertinent Lab Results: Laboratory Tests 05/26/24 20:51 WBC 7.4 Hgb 13.8 Hct 42.3 Plt Count 222 Sodium 143 Potassium 4.7 D Chloride 109 H Carbon Dioxide 23 BUN 10 Creatinine 0.73 Narrative Narrative: EKG 05/2024 Vent. Rate : 059 BPM Atrial Rate : 059 BPM P-R Int : 158 ms QRS Dur : 072 ms QT Int : 418 ms P-R-T Axes : 059 074 063 degrees QTc Int : 413 ms Sinus bradycardia Otherwise normal ECG When compared with ECG of 11-MAY-2024 12:55, No significant change was found Assessment and Plan Assessment Anesthesia Assessment: Chart Reviewed Documented by User: Deirdre Graves MD 07/03/24 10:43 [facility] Past Medical History Medical History Abdominal pain Hiatal hernia Chest discomfort Vitamin B deficiency Vitamin D deficiency Hypertension Family History Family History Mother Diabetes HTN (hypertension) High cholesterol Father Diabetes HTN (hypertension) High cholesterol Maternal Grandmother Diabetes HTN (hypertension) Paternal Grandfather Diabetes Family history of problems with anesthesia: No Surgical History Surgical History H/O carpal tunnel repair History of endometrial ablation Hx of repair of right rotator cuff Hx of hernia repair History of esophagogastroduodenoscopy (EGD) Gastric bypass status for obesity History of Problems with Anesthesia: No Social History Social History Household Members Other:: - 2 kids @ home Housing Other:: 2 family house Are you a primary healthcare customer service to a significant other at home: No Do you presently have visiting nurse or other home services: No Unable to assess alcohol history related to: Unknown Alcohol intake: never Comment: occasionally uses cane Patient Tobacco Use Status: Former Tobacco user Tobacco use type: Cigarette Years Smoked: 25 Use of substances other than those prescribed or required for medical reasons: No Substance Use Type: Marijuana Have you been hit, kicked, punched, or otherwise hurt by someone within the past year? If so, by whom?: No Spiritual Healthcare Practices: none Zoroastrianism Healthcare Practices: Jewish Cultural Healthcare Practices: none Are you DNR?: No Advance Directives Information Provided: Yes (as above noted) Advance Directives on File: No Recently lost weight without trying: No Eating poorly because of decreased appetite: No Nutrition Risks: No Nutritional Risk Patient : No FDLMP: n/a Poor oral hygiene: No (upper teeth-has posts for implants/some missing lower teeth) Meds Allergies Allergy/AdvReac Type Severity Reaction Status Date / Time ibuprofen [From Motrin] Allergy Intermediate RASH Verified 06/10/24 14:41 incense Allergy Intermediate Rash Uncoded 07/03/24 09:17 Home Medications ?Medication ?Instructions ?Recorded ?Confirmed ?Last Taken ?Type cyanocobalamin (vitamin B-12) 1,000 mcg PO DAILY 11/22/21 07/03/24 Unknown History 1,000 mcg tablet,extended release duloxetine 30 mg capsule,delayed 30 mg PO DAILY 11/22/21 07/03/24 Unknown History release multivitamin with folic acid 400 1 tab PO DAILY 11/22/21 07/03/24 Unknown History mcg tablet (Daily-Fabiano (with folic acid)) oxycodone-acetaminophen 5 mg-325 1 tab PO Q8H PRN Pain 11/22/21 07/03/24 07/02/24 History mg tablet (Percocet) cetirizine 10 mg tablet 10 mg PO DAILY 06/06/22 07/03/24 Unknown History cholecalciferol (vitamin D3) 50 2,000 unit PO DAILY 07/25/22 07/03/24 Unknown History mcg (2,000 unit) capsule scopolamine base 1 mg over 3 days 1 patch topical Q3D PRN Nausea 06/23/24 07/03/24 07/03/24 History transdermal patch Exam Airway Mallampati Class: II TM Dist: >3cm Neck ROM: Full Heart: rrr Lungs: cta Assessment and Plan Assessment Anesthesia Assessment: Anesthesia Plan Discussed Final Anesthetic Review Family History of Problems with Anesthesia: No History of Problems with Anesthesia: No ASA Class: II Final Preanesthetic Review: No Changes in Pt Med Stat, Meds/Allgs Chart Reviewed, Consent Obtained/Reviewed and Anes Risks/Benef Reviewed Patient Risk: Low Procedure Risk: Intermediate Anesthetic Plan Anesthetic Plan: GA and Regional Block Disposition: Standard PACU
[2024-07-03] VITALS (7 sets, daily range): BP systolic 131–163; BP diastolic 69–75; PULSE 49–57; RESP 16–18; TEMP 36.1–36.7; O2SAT 95–100; BMI 25.8
[2024-07-03] MEDS: Lactated Ringers 1,000 ML 100 ML IVCONT (10:22)
--- NOTE | 2024-07-03 13:21 | P.BOP_ITS ---
Brief Operative Note Date of Service: 07/03/24 Pre-op diagnosis: Left shoulder impingement syndrome, left shoulder acromioclavicular joint arthritis, left shoulder adhesive capsulitis Post-op diagnosis: same Procedure: Left shoulder diagnostic arthroscopy with left shoulder arthroscopic distal clavicle excision, left shoulder arthroscopic acromioplasty, left shoulder arthroscopic anterior capsular release, left shoulder manipulation under anesthesia Implants: None Surgeon: Vasile Benito MD Anesthesia: GETA and regional Was an Account Liaison used for this Procedure?: No Estimated blood loss (mL): 10 Pathology: none sent Condition: stable Disposition: PACU
--- NOTE | 2024-07-03 13:22 | W.PM.OPN ---
Operative Note Operative Note Date of Service: 07/03/24 Narrative: After the patient was identified as Genet Figueroa and her left shoulder was initialed by myself the patient was brought to the holding area where a left shoulder interscalene regional block was performed by the anesthesiologist in routine fashion. The patient was then brought to the operating room where general anesthesia was induced by the anesthesiologist in routine fashion. The patient was given 2 g of IV Ancef preoperatively for infection prophylaxis. Examination under anesthesia of the patient's left shoulder showed decreased range of motion when compared to the right shoulder. The patient's left shoulder had forward flexion to 130 degrees compared to 170 degrees, external rotation to 30 degrees compared to 70 degrees, and internal rotation to 40 degrees compared to 50 degrees. The patient was gently positioned in the beach chair position with all bony prominences well padded. The patient's left shoulder region and upper extremity were prepped and draped in sterile fashion. A formal time-out was completed. A #11 scalpel blade was used to make a posterior portal 2 cm inferior and 1 cm medial to the posterolateral corner of the acromion. Blunt trocar technique was used to enter the glenohumeral joint in routine fashion. An anterior portal was made just lateral to the coracoid process after proper positioning was confirmed using a spinal needle. Diagnostic arthroscopy showed minimal degenerative changes of the glenoid and humeral head articular surfaces. There was no evidence of rotator cuff tearing. There was no evidence of injury to the biceps tendon or its insertion onto the glenoid. There was inflammation of the anterior joint capsule consistent with adhesive capsulitis. The ArthroCare Wand was then used to perform an anterior capsular release between the inferior border of the biceps tendon and the superior border of the subscapularis tendon. The arthroscope was then placed from the posterior portal into the subacromial space. A lateral portal was made 2 fingerbreadths lateral to the anterior lateral corner of the acromion. The ArthroCare Wand was used to ablate soft tissues along the undersurface of the acromion as well as to excise the coracoacromial ligament. There was a sharp spur along the undersurface of the acromion which was removed using the hooded bur. The arthroscope was then placed into the lateral portal and the acromioplasty was completed with the bur in the posterior portal using the posterior aspect of the acromion as a cutting block. The ArthroCare Wand was then brought in through the anterior portal and was used to ablate soft tissues along the acromioclavicular joint and distal clavicle. The posterior and superior ligamentous structures were left intact. A distal clavicle excision of 6 mm was performed using the hooded bur. Any remaining bursal tissue was removed using the arthroscopic shaver. The subacromial space was irrigated and then drained. All arthroscopic instruments were removed. A gentle manipulation under anesthesia was then performed. Full passive range of motion was easily attained. The 3 portals were closed with 3-0 nylon interrupted suture. The subacromial space was injected with Marcaine. Dry sterile dressing was placed over all incisions. The patient's left upper extremity was placed into a sling. The patient was awoken and extubated in the operating room. The patient was transferred to the recovery room in stable condition.
[2024-07-03] MEDS: cefTRIAXone sodium 1 GM VIAL IVPUSH (13:25)
== END 2024-07-03 14:19 | disposition home or self-care (01) ==
PROVIDERS: PCP Pediatrics; Visit Provider Orthopaedic Surgery
PROC: (CPT 29805; principal; 2024-07-03 11:00)
DX: M75.42 Impingement syndrome of left shoulder (principal); M75.02 Adhesive capsulitis of left shoulder; M19.029 Primary osteoarthritis, unspecified elbow; I10 Essential (primary) hypertension; E53.9 Vitamin B deficiency, unspecified; E55.9 Vitamin D deficiency, unspecified; Z79.899 Other long term (current) drug therapy; Z88.6 Allergy status to analgesic agent; Z98.890 Other specified postprocedural states; Z98.84 Bariatric surgery status; Z87.891 Personal history of nicotine dependence
CPT/HCPCS: 29824; 29825; 29826; J0131; J0171; J0665; J0690; J0696; J1100; J2003; J2250; J2405; J2704; J2795; J3010

== ENCOUNTER → 2024-07-03 08:40 | Outpatient (BNV) | payer OTHER, SELFPAY | PROVIDERS: PCP Pediatrics; Visit Provider Orthopaedic Surgery | DX: M75.42 Impingement syndrome of left shoulder (principal); M19.012 Primary osteoarthritis, left shoulder; M75.02 Adhesive capsulitis of left shoulder | CPT/HCPCS: 29824; 29826 ==

== ENCOUNTER 2024-07-10 09:05 | Outpatient (AMB) | payer OTHER, SELFPAY ==
--- NOTE | 2024-07-10 09:23 | MHC.OFFVIS ---
Intake Visit Reasons: PO LT shoulder 07/03/24 DR-Bandage check Intake Note: Genet a 54 year old female who presents today for a post operative wound check s/p left shoulder , DOS 07/03/24 DRKing Patient reports that she has a burning sensation at her incision sites. Allergies ibuprofen [From Motrin] Allergy (Intermediate, Verified 07/10/24 09:55) RASH incense Allergy (Intermediate, Uncoded 07/10/24 09:55) Rash Medication List - Last Reconciled 07/11/24 by Rj Vang PA-C cetirizine 10 mg PO DAILY cholecalciferol (vitamin D3) 2,000 units PO DAILY cyanocobalamin (vitamin B-12) ER 1,000 mcg PO DAILY duloxetine 30 mg PO DAILY estradiol 0.01%(0.1mg/gram) (Estrace) pea sized amount on fingertip a qhs vaginally vaginally daily; hyoscyamine sulfate 0.125 mg PO QID PRN metoclopramide HCl 5 mg PO . t.i.d. PRN multivitamin with folic acid 400 mcg (Daily-Fabiano (with folic acid)) 1 tab PO DAILY omeprazole magnesium (Prilosec OTC) 20 mg PO DAILY ondansetron 4 mg PO DAILY PRN 5 days oxycodone 10 mg (2 x 5 mg) PO Q4H PRN oxycodone-acetaminophen 5-325 mg (Percocet) 1 tab PO Q8H PRN scopolamine base 1 patch topical Q3D PRN HPI HPI PO LT shoulder 07/03/24 DR-Bandage check: Details: 54-year-old female who returns to the office today for post-op left shoulder , 07/03/[address] Benito. She presents today for a wound check. She currently states she has a burning sensation at the incision site. She is doing well otherwise and has no concerns today. [facility] Medical History Abdominal pain Hiatal hernia Chest discomfort Vitamin B deficiency Vitamin D deficiency Hypertension Surgical History H/O carpal tunnel repair History of endometrial ablation Hx of repair of right rotator cuff Hx of hernia repair History of esophagogastroduodenoscopy (EGD) Gastric bypass status for obesity Family History Mother Diabetes HTN (hypertension) High cholesterol Father Diabetes HTN (hypertension) High cholesterol Maternal Grandmother Diabetes HTN (hypertension) Paternal Grandfather Diabetes Social History Household Members Other:: - 2 kids @ home Housing Other:: 2 family house Are you a primary respite care provider to a significant other at home: No Do you presently have visiting nurse or other home services: No Unable to assess alcohol history related to: Unknown Alcohol intake: never Comment: occasionally uses cane Patient Tobacco Use Status: Former Tobacco user Tobacco use type: Cigarette Years Smoked: 25 Substance Use Type: Marijuana Review of Systems Const All systems reviewed & are unremarkable except as noted in HPI and below Physical Exam Extrem Other: Left shoulder: Incision clean, dry and intact. No erythema on surrounding incisions. No drainage. Assessment & Plan Assessment & Plan (1) Impingement syndrome of left shoulder: Code(s): M75.42 - Impingement syndrome of left shoulder Category: Medical Plan Surgical bandages were removed and replaced with band aids. I did tell her that she can shower and get this wet but she should avoid soaking or scrubbing the area and she should reapply the bandages after the shower. I would like to see her back next for her routine postop appointment, sooner if needed. Patient Instructions: Scribed for Rj Vang PA-C, by Ángel Cheney medical doctor md/medical director, on 07/10/2024 at 9:15 AM EST.? I, Rj Vang PA-C, have personally reviewed and agree with the information entered by the scribe. Coding Level of Care Code Global (91920) Diagnoses Impingement syndrome of left shoulder M75.42
== END 2024-07-10 09:55 | disposition home or self-care (01) ==
LOC: HO.HOS 09:05
PROVIDERS: PCP Pediatrics; Visit Provider Physician Assistant
DX: M75.42 Impingement syndrome of left shoulder (principal)
CPT/HCPCS: 99024

== ENCOUNTER → 2024-07-10 09:05 | Outpatient (BNVA) | payer OTHER, SELFPAY | PROVIDERS: PCP Pediatrics; Visit Provider Physician Assistant | DX: M75.42 Impingement syndrome of left shoulder (principal) | CPT/HCPCS: 99212 ==

== ENCOUNTER 2024-07-16 07:56 | Outpatient (AMB) | payer OTHER, SELFPAY ==
--- NOTE | 2024-07-16 08:03 | A.OFFVIS_ITS ---
Vital Signs 07/16/24 08:05 Height 5 ft 2 in Weight 139 lb BMI 25.4 Intake Visit Reasons: PO LT shoulder 07/03/24 Intake Note: Genet a 54 year old female who presents 1st postoperative visit after undergoing left shoulder arthroscopic surgery on 07/03/2024. She reports mild to moderate discomfort in her left shoulder. She denies any fevers or chills. She has been doing stretching exercises on her own. Allergies ibuprofen [From Motrin] Allergy (Intermediate, Verified 07/16/24 08:04) RASH incense Allergy (Intermediate, Uncoded 07/16/24 08:04) Rash Medication List - Last Reconciled 07/16/24 by Vasile Benito MD cetirizine 10 mg PO DAILY cholecalciferol (vitamin D3) 2,000 units PO DAILY cyanocobalamin (vitamin B-12) ER 1,000 mcg PO DAILY duloxetine 30 mg PO DAILY estradiol 0.01%(0.1mg/gram) (Estrace) pea sized amount on fingertip a qhs vaginally vaginally daily; hyoscyamine sulfate 0.125 mg PO QID PRN metoclopramide HCl 5 mg PO . t.i.d. PRN multivitamin with folic acid 400 mcg (Daily-Fabiano (with folic acid)) 1 tab PO DAILY omeprazole magnesium (Prilosec OTC) 20 mg PO DAILY ondansetron 4 mg PO DAILY PRN 5 days oxycodone 5 mg PO Q4H PRN scopolamine base 1 patch topical Q3D PRN PFSH Medical History Abdominal pain Hiatal hernia Chest discomfort Vitamin B deficiency Vitamin D deficiency Hypertension Surgical History H/O carpal tunnel repair History of endometrial ablation Hx of repair of right rotator cuff Hx of hernia repair History of esophagogastroduodenoscopy (EGD) Gastric bypass status for obesity Family History Mother Diabetes HTN (hypertension) High cholesterol Father Diabetes HTN (hypertension) High cholesterol Maternal Grandmother Diabetes HTN (hypertension) Paternal Grandfather Diabetes Social History Household Members Other:: - 2 kids @ home Housing Other:: 2 family house Are you a primary continuum of care manager to a significant other at home: No Do you presently have visiting nurse or other home services: No Unable to assess alcohol history related to: Unknown Alcohol intake: never Comment: occasionally uses cane Patient Tobacco Use Status: Former Tobacco user Tobacco use type: Cigarette Years Smoked: 25 Substance Use Type: Marijuana Physical Exam Vital Signs: BMI result Body Mass Index 25.4 Extrem Other: Left shoulder examination shows that the surgical incisions are healing well, no erythema, mild discomfort with range of motion, no instability Assessment & Plan Assessment & Plan (1) Left shoulder pain: Code(s): M25.512 - Pain in left shoulder Category: Medical Plan Genet is doing well after undergoing left shoulder arthroscopic surgery on 07/03/2024. Her sutures were removed and Steri-Strips placed over her incisions. She does not wish to go to formal physical therapy. She will continue with her home stretching program. I did refill her prescription for oxycodone. She will contact me prior to her follow-up appointment in 6-8 weeks should any questions or concerns arise. Feel free to call me at any time should questions regarding her orthopedic management arise. Medications: Changed From oxycodone Partial Fill upon patient request. Take 1-2 tabs every 4 hours as needed for pain following your left shoulder surgery 10 mg (2 x 5 mg) PO Q4H PRN 40 tabs 0RF pain To oxycodone Partial Fill upon patient request. 5 mg PO Q4H PRN 40 tabs 0RF pain Coding Level of Care Code Global (00975) Diagnoses Left shoulder pain M25.512
[2024-07-16 08:05] VITALS: BMI 25.4
== END 2024-07-16 08:18 | disposition home or self-care (01) ==
LOC: HO.HOS 07:57
PROVIDERS: PCP Pediatrics; Visit Provider Orthopaedic Surgery
DX: M25.512 Pain in left shoulder (principal)
CPT/HCPCS: 99024

== ENCOUNTER → 2024-07-16 07:56 | Outpatient (BNVA) | payer OTHER, SELFPAY | PROVIDERS: PCP Pediatrics; Visit Provider Orthopaedic Surgery | DX: M25.512 Pain in left shoulder (principal); Z47.89 Encounter for other orthopedic aftercare; Z98.890 Other specified postprocedural states | CPT/HCPCS: 99212 ==

== ENCOUNTER 2024-08-11 09:37 | Outpatient (REF) | payer OTHER, SELFPAY ==
--- NOTE | ~2024-08-11 | MM_ITS ---
EXAMINATION: MM SCREENING DIGITAL BREAST TOMOSYNTHESIS, BILATERAL CLINICAL INFORMATION: Screening. Asymptomatic. COMPARISON: Mammography: Comparison is made with available priors TECHNIQUE: Digital breast mammography with tomosynthesis is performed in both the craniocaudal and mediolateral oblique views along with computer-aided detection (CAD). FINDINGS: There are scattered areas of fibroglandular density (ACR BI-RADS breast composition Category b). There are no significant masses, abnormal calcifications, or other abnormalities. MM/MM tomosynthesis screening BI IMPRESSION: No mammographic evidence of malignancy. ASSESSMENT: BI-RADS BI-RADS 1 - Negative RECOMMENDATION: Routine annual mammography screening. 1 year F/U This examination should not preclude the clinical evaluation of a suspicious palpable abnormality. This patient's information was entered into a reminder system with a target due date for their next mammogram. Electronically signed by: Radha Lei DO 08/17/2024 02:11 PM [facility]
== END 2024-08-11 09:38 | disposition home or self-care (01) ==
LOC: HO.MAMMO 09:37
PROVIDERS: PCP Pediatrics; Visit Provider Pediatrics
DX: Z12.31 Encounter for screening mammogram for malignant neoplasm of breast (principal)
CPT/HCPCS: 77063; 77067

== ENCOUNTER → 2024-08-11 10:00 | Outpatient (BNV) | payer OTHER, SELFPAY | PROVIDERS: PCP Pediatrics; Visit Provider Internal Medicine | DX: Z12.31 Encounter for screening mammogram for malignant neoplasm of breast (principal) | CPT/HCPCS: 77063; 77067 ==

== ENCOUNTER 2024-08-27 08:20 | Outpatient (AMB) | payer OTHER, SELFPAY ==
--- NOTE | 2024-08-27 08:26 | MHC.OFFVIS ---
Vital Signs 08/27/24 08:28 Height 5 ft 2 in Weight 139 lb BMI 25.4 Intake Visit Reasons: Left shoulder pain Intake Note: Genet is a 54 year old female who presents to the office for a postoperative visit after undergoing left shoulder arthroscopic surgery on 07/03/2024. She reports mild to moderate discomfort in her left shoulder. She denies any fevers or chills. She continues with her home stretching program. She does not wish to go to formal physical therapy. Allergies ibuprofen [From Motrin] Allergy (Intermediate, Verified 08/27/24 08:29) RASH incense Allergy (Intermediate, Uncoded 08/27/24 08:29) Rash Medication List - Last Reconciled 08/27/24 by Vasile Benito MD cetirizine 10 mg PO DAILY cholecalciferol (vitamin D3) 2,000 units PO DAILY cyanocobalamin (vitamin B-12) ER 1,000 mcg PO DAILY duloxetine 30 mg PO DAILY estradiol 0.01%(0.1mg/gram) (Estrace) pea sized amount on fingertip a qhs vaginally vaginally daily; hyoscyamine sulfate 0.125 mg PO QID PRN metoclopramide HCl 5 mg PO . t.i.d. PRN multivitamin with folic acid 400 mcg (Daily-Fabiano (with folic acid)) 1 tab PO DAILY omeprazole magnesium (Prilosec OTC) 20 mg PO DAILY ondansetron 4 mg PO DAILY PRN 5 days oxycodone 5 mg PO Q4H PRN scopolamine base 1 patch topical Q3D PRN PFSH Medical History Abdominal pain Hiatal hernia Chest discomfort Vitamin B deficiency Vitamin D deficiency Hypertension Surgical History H/O carpal tunnel repair History of endometrial ablation Hx of repair of right rotator cuff Hx of hernia repair History of esophagogastroduodenoscopy (EGD) Gastric bypass status for obesity Family History Mother Diabetes HTN (hypertension) High cholesterol Father Diabetes HTN (hypertension) High cholesterol Maternal Grandmother Diabetes HTN (hypertension) Paternal Grandfather Diabetes Social History Household Members Other:: - 2 kids @ home Housing Other:: 2 family house Are you a primary home care and home health aides teacher to a significant other at home: No Do you presently have visiting nurse or other home services: No Unable to assess alcohol history related to: Unknown Alcohol intake: never Comment: occasionally uses cane Patient Tobacco Use Status: Former Tobacco user Tobacco use type: Cigarette Years Smoked: 25 Substance Use Type: Marijuana Physical Exam Vital Signs: BMI result Body Mass Index 25.4 Extrem Other: Left shoulder examination shows that the surgical incisions are well healed, no erythema, almost full range motion when compared to her right shoulder, minimal discomfort with range of motion, 5/5 strength with supraspinatus testing Assessment & Plan Assessment & Plan (1) Left shoulder pain: Code(s): M25.512 - Pain in left shoulder Category: Medical Plan Ms. Figueroa continues to do very well after undergoing left shoulder arthroscopic surgery on 07/03/2024. She will continue with her home stretching program to prevent stiffness. The do's and don'ts of lifting were discussed at length with the patient. She will contact prior to her follow-up in 3 months should any questions or concerns arise. Feel free to call me at any time should questions regarding her orthopedic management arise. Medications: Changed From oxycodone Partial Fill upon patient request. 5 mg PO Q4H PRN 40 tabs 0RF pain To oxycodone Partial Fill upon patient request. 5 mg PO Q12H PRN 30 tabs 0RF pain Coding Level of Care Code Global (24587) Diagnoses Left shoulder pain M25.512
[2024-08-27 08:28] VITALS: BMI 25.4
== END 2024-08-27 08:55 | disposition home or self-care (01) ==
PROVIDERS: PCP Pediatrics; Visit Provider Orthopaedic Surgery
DX: M25.512 Pain in left shoulder (principal)
CPT/HCPCS: 99024

== ENCOUNTER → 2024-08-27 08:20 | Outpatient (BNVA) | payer OTHER, SELFPAY | PROVIDERS: PCP Pediatrics; Visit Provider Orthopaedic Surgery | DX: M25.512 Pain in left shoulder (principal); Z47.89 Encounter for other orthopedic aftercare; Z98.890 Other specified postprocedural states | CPT/HCPCS: 99212 ==

== ENCOUNTER 2024-09-28 10:14 | Outpatient (AMB) | payer OTHER, MEDICARE, SELFPAY ==
--- NOTE | 2024-09-28 10:17 | A.OFFVIS_ITS ---
Intake Visit Reasons: 6m follow up Intake Note: Patient is present for 6M F/U Urology Medication:ESTRADIOL,VITAMIN B12 Antibiotic Allergy:NONE Blood Thinner:NONE Lead Generation Representative Required: No Allergies ibuprofen [From Motrin] Allergy (Intermediate, Verified 09/28/24 10:17) RASH incense Allergy (Intermediate, Uncoded 09/28/24 10:17) Rash Medication List - Last Reconciled 09/28/24 by Melita Baltazar MD cetirizine 10 mg PO DAILY cholecalciferol (vitamin D3) 2,000 units PO DAILY cyanocobalamin (vitamin B-12) ER 1,000 mcg PO DAILY duloxetine 30 mg PO DAILY hyoscyamine sulfate 0.125 mg PO QID PRN metoclopramide HCl 5 mg PO . t.i.d. PRN multivitamin with folic acid 400 mcg (Daily-Fabiano (with folic acid)) 1 tab PO DAILY omeprazole magnesium (Prilosec OTC) 20 mg PO DAILY ondansetron 4 mg PO DAILY PRN 5 days oxycodone 5 mg PO Q12H PRN scopolamine base 1 patch topical Q3D PRN HPI Comments Details: 09/28/24--Genet is here for follow-up, she was initially evaluated for microscopic hematuria. Workup was negative for malignancy, she was prescribed estrogen cream for postmenopausal vaginal atrophy, she has not use the estrogen cream. She states she does not have a auto air conditioning installer but her PCP does Pap smears. She denies irritative voiding symptoms. At this time we will DC estrogen cream, and we will follow her on a p.r.n. basis. 03/27/24--here for office cystoscopy. Genet is being evaluated for microscopic hematuria, complains of vaginal dryness and hot flashes. History of nicotine use. Estrace cream was ordered on 02/16/2023 she states that the pharmacy did let her know the prescription was ready. I will send it again today. Cystoscopy findings: No suspicious bladder lesions. The patient is instructed on the local vaginal estrogen use, pea-sized amount to her fingertip to apply daily at bedtime. Follow-up in 6 months 02/17/24--Genet is here for [employer] evaluation due to microscopic hematuria. PMH/PSH h/o Obesity s/p gastric bypass. Denies tobacco use. She complains of vaginal dryness for about 2 years and urinary urgency for the last 6 months. In review of her chart, she had CT abd/pelvis with IV contrast on 11/27/23, which I have reviewed and discussed-- Urinary tract WNL. I have discussed further evaluation with office cystoscopy, will prescribe vaginal estrace cream. [facility] Medical History Abdominal pain Hiatal hernia Chest discomfort Vitamin B deficiency Vitamin D deficiency Hypertension Surgical History H/O carpal tunnel repair History of endometrial ablation Hx of repair of right rotator cuff Hx of hernia repair History of esophagogastroduodenoscopy (EGD) Gastric bypass status for obesity Family History Mother Diabetes HTN (hypertension) High cholesterol Father Diabetes HTN (hypertension) High cholesterol Maternal Grandmother Diabetes HTN (hypertension) Paternal Grandfather Diabetes Social History Household Members Other:: - 2 kids @ home Housing Other:: 2 family house Are you a primary primary care sales representative to a significant other at home: No Do you presently have visiting nurse or other home services: No Unable to assess alcohol history related to: Unknown Alcohol intake: never Comment: occasionally uses cane Patient Tobacco Use Status: Former Tobacco user Tobacco use type: Cigarette Years Smoked: 25 Substance Use Type: Marijuana Review of Systems Const All systems reviewed & are unremarkable except as noted in HPI and below Reports no additional complaints Eyes Reports no additional complaints ENT Reports no additional complaints Card Reports no additional complaints Resp Reports no additional complaints GI Reports no additional complaints Reports as per HPI Musc Reports no additional complaints Skin/Breast Reports system reviewed and no additional complaints, except as documented Neuro Reports no additional complaints Psych Reports no additional complaints Endo Reports no additional complaints Mark/Lymph Reports no additional complaints Aller/Immun Reports no additional complaints Results AMB Urinalysis, Automated UA Leukoctes 0 Meka/uL Last Edit by YOVANI Pepper on 09/28/24 10:28 UA Nitrite Negative Last Edit by YOVANI Pepper on 09/28/24 10:28 UA Urobilinogen 0.2 mg/dL Last Edit by YOVANI Pepper on 09/28/24 10:2 8 UA Protein 0 mg/dL Last Edit by YOVANI Pepper on 09/28/24 10:28 UA pH 6.0 Last Edit by YOVANI Pepper on 09/28/24 10:28 UA Blood 10 Simon/uL Last Edit by YOVANI Pepper on 09/28/24 10:28 UA Specific [place] 1.015 Last Edit by YOVANI Pepper on 09/28/24 10: 28 UA Ketone Negative Last Edit by YOVANI Pepper on 09/28/24 10:28 UA Bilirubin 0 mg/dL Last Edit by YOVANI Pepper on 09/28/24 10:28 UA Glucose 0 mg/dL Last Edit by YOVANI Pepper on 09/28/24 10:28 Results Reviewed Results Reviewed: Laboratory Last Values Urine pH (Auto) 6.0 09/28/24 10:27 Specific [place] (Auto) 1.015 09/28/24 10:27 Urine Protein (Auto) 0 mg/dL 09/28/24 10:27 Glucose (UA)(Auto) 0 mg/dL 09/28/24 10:27 Urine Ketones (Auto) Negative 09/28/24 10:27 Urine Blood (Auto) 10 Simon/uL 09/28/24 10:27 Urine Nitrite (Auto) Negative 09/28/24 10:27 Urine Bilirubin (Auto) 0 mg/dL 09/28/24 10:27 Urine Urobilinogen (Auto) 0.2 mg/dL 09/28/24 10:27 Leukocyte Esterase (Auto) 0 Meka/uL 09/28/24 10:27 Assessment & Plan Assessment & Plan (1) Microscopic hematuria: Code(s): R31.29 - Other microscopic hematuria Category: Medical (2) Vaginal atrophy: Code(s): N95.2 - Postmenopausal atrophic vaginitis Category: Medical Plan Urology follow-up. Orders: Orders AMB Urinalysis Automated Today Z13.9 - Encounter for screening, unspecified Medications: Discontinued estradiol 0.01%(0.1mg/gram) (Estrace) Discontinued Reason: Doctor's Order pea sized amount on fingertip a qhs vaginally vaginally daily; 42.5 grams 1RF Patient Instructions: The patient had an opportunity to ask questions regarding treatment plan. The patient expressed understanding and agreement with the above treatment plan. The patient is aware they should contact our office by phone for worsening of their current condition or the appearance of new symptoms. Compliance is encouraged with any medications and followup testing that is ordered. It is a privilege to be allowed the opportunity to participate in the urologic care of your patient. If you have any questions or concerns regarding treatment for the above conditions please do not hesitate to contact me. The office telephone contact is [phone]. This note is constructed in part using voice recognition software. While every effort has been made to ensure accuracy hose seamer errors may have been included. Yours sincerely, Melita Baltazar MD Coding Level of Care Code Est Pt Level 3 (87380) Diagnoses Microscopic hematuria R31.29 Vaginal atrophy N95.2
== END 2024-09-28 10:48 | disposition home or self-care (01) ==
PROVIDERS: PCP Pediatrics; Visit Provider Urology
DX: R31.29 Other microscopic hematuria (principal); N95.2 Postmenopausal atrophic vaginitis; Z13.9 Encounter for screening, unspecified
CPT/HCPCS: 99213

== ENCOUNTER → 2024-09-28 10:14 | Outpatient (BNVA) | payer OTHER, MEDICARE, SELFPAY | PROVIDERS: PCP Pediatrics; Visit Provider Urology | DX: R31.29 Other microscopic hematuria (principal); N95.2 Postmenopausal atrophic vaginitis | CPT/HCPCS: 81003; 99212 ==

== ENCOUNTER 2024-10-21 10:16 | Outpatient (REF) | payer MEDICARE, SELFPAY ==
--- NOTE | ~2024-10-21 | XR_ITS ---
EXAMINATION: XR CHEST CLINICAL INFORMATION: cough, chills COMPARISON: None available. TECHNIQUE: 2 views of the chest were obtained. FINDINGS: No significant abnormality is noted involving the heart, lungs, mediastinum, bony thorax or soft tissues. XR/XR chest 2V IMPRESSION: Unremarkable chest examination. Electronically signed by: Gavin Julian MD 10/21/2024 10:36 AM [facility]
== END 2024-10-21 10:17 | disposition home or self-care (01) ==
LOC: HO.HHCX 10:16
PROVIDERS: Visit Provider Emergency Medicine
DX: R68.89 Other general symptoms and signs (principal)
CPT/HCPCS: 71046

== ENCOUNTER → 2024-10-21 10:17 | Outpatient (BNV) | payer OTHER, SELFPAY | PROVIDERS: Visit Provider Radiology Diagnostic Radiology | DX: R05.9 Cough, unspecified (principal); R68.83 Chills (without fever) | CPT/HCPCS: 71046 ==

== ENCOUNTER 2024-11-26 08:22 | Outpatient (AMB) | payer OTHER, SELFPAY ==
--- NOTE | 2024-11-26 08:40 | A.OFFVIS_ITS ---
Vital Signs 11/26/24 08:43 Height 5 ft 2 in Weight 139 lb BMI 25.4 Intake Visit Reasons: OV LT shoulder 07/03/24 DR-6 WK follow up Intake Note: Genet is a 54 year old female who presents with complaints of mild to moderate discomfort in her left shoulder after undergoing left shoulder arthroscopic surgery on 07/03/2024. She denies any fevers or chills. She continues with her home stretching program. Allergies ibuprofen [From Motrin] Allergy (Intermediate, Verified 11/26/24 08:43) RASH incense Allergy (Intermediate, Uncoded 11/26/24 08:43) Rash Medication List - Last Reconciled 11/26/24 by Vasile Benito MD cetirizine 10 mg PO DAILY cholecalciferol (vitamin D3) 2,000 units PO DAILY cyanocobalamin (vitamin B-12) ER 1,000 mcg PO DAILY duloxetine 30 mg PO DAILY hyoscyamine sulfate 0.125 mg PO QID PRN metoclopramide HCl 5 mg PO . t.i.d. PRN multivitamin with folic acid 400 mcg (Daily-Afbiano (with folic acid)) 1 tab PO DAILY omeprazole magnesium (Prilosec OTC) 20 mg PO DAILY ondansetron 4 mg PO DAILY PRN 5 days oxycodone 5 mg PO Q12H PRN scopolamine base 1 patch topical Q3D PRN PFSH Medical History Abdominal pain Hiatal hernia Chest discomfort Vitamin B deficiency Vitamin D deficiency Hypertension Surgical History H/O carpal tunnel repair History of endometrial ablation Hx of repair of right rotator cuff Hx of hernia repair History of esophagogastroduodenoscopy (EGD) Gastric bypass status for obesity Family History Mother Diabetes HTN (hypertension) High cholesterol Father Diabetes HTN (hypertension) High cholesterol Maternal Grandmother Diabetes HTN (hypertension) Paternal Grandfather Diabetes Social History Household Members Other:: - 2 kids @ home Housing Other:: 2 family house Are you a primary child care lead teacher to a significant other at home: No Do you presently have visiting nurse or other home services: No Unable to assess alcohol history related to: Unknown Alcohol intake: never Comment: occasionally uses cane Patient Tobacco Use Status: Former Tobacco user Tobacco use type: Cigarette Years Smoked: 25 Substance Use Type: Marijuana Physical Exam Vital Signs: BMI result Body Mass Index 25.4 Const Other: Well-nourished well-developed very friendly female awake alert and oriented x3 in no acute distress Extrem Other: Bilateral upper extremity examination shows good capillary refill, no skin lesions noted, normal sensation light touch Left shoulder examination shows that the surgical incisions are well healed, no erythema, slightly decreased range of motion when compared to her right shoulder, no instability Assessment & Plan Assessment & Plan (1) Left shoulder pain: Code(s): M25.512 - Pain in left shoulder Category: Medical Plan Ms. Figueroa continues to do fairly well after undergoing left shoulder arthroscopic surgery on 07/03/2024. She does have residual discomfort due to rotator cuff tendinosis. I had a lengthy discussion with the patient regarding the treatment options. At this point her symptoms are tolerable to her. We will hold off on a cortisone injection. She will contact me prior to her follow-up appointment in 3 months should any questions or concerns arise. Feel free to call me at any time should questions regarding her orthopedic management arise. I spent 20 minutes in reviewing the patient's records and imaging studies, seeing the patient and documenting in the medical record. Coding Level of Care Code Est Pt Level 3 (07212) Complex EM visit Add On G2211 Diagnoses Left shoulder pain M25.512
[2024-11-26 08:43] VITALS: BMI 25.4
== END 2024-11-26 09:13 | disposition home or self-care (01) ==
LOC: HO.HOS 08:23
PROVIDERS: PCP Pediatrics; Visit Provider Orthopaedic Surgery
DX: M25.512 Pain in left shoulder (principal)
CPT/HCPCS: 99213; G2211

== ENCOUNTER → 2024-11-26 08:22 | Outpatient (BNVA) | payer OTHER, SELFPAY | PROVIDERS: PCP Pediatrics; Visit Provider Orthopaedic Surgery | DX: M25.512 Pain in left shoulder (principal); Z98.890 Other specified postprocedural states | CPT/HCPCS: 99212 ==

== ENCOUNTER 2025-03-02 08:02 | Outpatient (AMB) | payer OTHER, SELFPAY ==
--- NOTE | 2025-03-02 08:04 | A.OFFVIS_ITS ---
Vital Signs 03/02/25 08:07 Height 5 ft 2 in Weight 139 lb BMI 25.4 Intake Visit Reasons: OV LT shoulder 07/03/24 DR Intake Note: Genet is a 54 year old female who presents for follow up after undergoing left shoulder arthroscopic surgery on 07/03/2024. She reports mild intermittent discomfort along the lateral aspect of her left shoulder. She denies any fevers or chills. She continues with her home stretching program. Allergies ibuprofen (From Motrin) Allergy (Intermediate, Verified 03/02/25 08:06) RASH incense Allergy (Intermediate, Uncoded 03/02/25 08:06) Rash Medication List - Last Reconciled 03/02/25 by Vasile Benito MD cetirizine 10 mg PO DAILY cholecalciferol (vitamin D3) 2,000 units PO DAILY cyanocobalamin (vitamin B-12) ER 1,000 mcg PO DAILY duloxetine 30 mg PO DAILY hyoscyamine sulfate 0.125 mg PO QID PRN metoclopramide HCl 5 mg PO . t.i.d. PRN multivitamin with folic acid 400 mcg (Daily-Fabiano (with folic acid)) 1 tab PO DAILY omeprazole magnesium (Prilosec OTC) 20 mg PO DAILY ondansetron 4 mg PO DAILY PRN 5 days scopolamine base 1 patch topical Q3D PRN PFSH Medical History Abdominal pain Hiatal hernia Chest discomfort Vitamin B deficiency Vitamin D deficiency Hypertension Surgical History H/O carpal tunnel repair History of endometrial ablation Hx of repair of right rotator cuff Hx of hernia repair History of esophagogastroduodenoscopy (EGD) Gastric bypass status for obesity Family History Mother Diabetes HTN (hypertension) High cholesterol Father Diabetes HTN (hypertension) High cholesterol Maternal Grandmother Diabetes HTN (hypertension) Paternal Grandfather Diabetes Social History Household Members Other:: - 2 kids @ home Housing Other:: 2 family house Are you a primary rn care transition to a significant other at home: No Do you presently have visiting nurse or other home services: No Unable to assess alcohol history related to: Unknown Alcohol intake: never Comment: occasionally uses cane Patient Tobacco Use Status: Former Tobacco user Tobacco use type: Cigarette Years Smoked: 25 Substance Use Type: Marijuana Physical Exam Vital Signs: BMI result Body Mass Index 25.4 Const Other: Well-nourished well-developed very friendly female awake alert and oriented x3 in no acute distress Extrem Other: Bilateral upper extremity examination shows good capillary refill, no skin lesions noted, normal sensation light touch Left shoulder examination shows that the surgical incisions are well healed, no erythema, slightly decreased range of motion when compared to her right shoulder, mild discomfort with range of motion, no instability Assessment & Plan Assessment & Plan (1) Left shoulder pain: Code(s): M25.512 - Pain in left shoulder Category: Medical Plan Ms. Figueroa continues to do fairly well after undergoing arthroscopic surgery on 07/03/2024. She does have residual discomfort due to rotator cuff tendinosis. I had a lengthy discussion with the patient regarding the treatment options. At this point the patient's symptoms are tolerable to her. She will continue with her home stretching program. We will hold off on a cortisone injection for now. She will contact me prior to her follow-up appointment in 3 months should any questions or concerns arise. Feel free to call me at any time should questions regarding her orthopedic management arise. I spent 20 minutes in reviewing the patient's records and imaging studies, seeing the patient and documenting in the medical record. Coding Level of Care Code Est Pt Level 3 (81759) Complex EM visit Add On G2211 Diagnoses Left shoulder pain M25.512
[2025-03-02 08:07] VITALS: BMI 25.4
--- OUTSIDE RECORDS SUMMARY | 2025-03-02 08:09 | XMS_ITS | Encounter Summary ---
Author Organization [employer] Address [address] [place] [address] Care Team Providers Care Gear Lapping Machine Operator Name Role Phone Claire Ibrahim MD Primary Care Provider [phone] Reason for Visit * Reason Onset Date Comments Med Refill 04/10/2024 Encounter Details Date Type Department Care Team ([facility] Contact Info) Description 04/10/2024 Telephone [facility] [address] [place] [address] Claire Ibrahim MD [address] [place] [address] Med Refill Social History Tobacco Use Types Packs/Day Years Used Date Smoking Tobacco: Former Cigarettes Passive Smoke Exposure: Never Smokeless Tobacco: Never Alcohol Use Standard Drinks/Week Comments Never 0 (1 standard drink = 0.6 oz pur e alcohol) Depression Answer Date Recorded Patient Health Questionnaire-9 Score 4 10/08/2023 Patient Health Questionnaire-9 Score 4 10/08/2023 Last PHQ-9: Questionnaire Data Not on file 0 10/08/2023 Housing Stability Answer Date Recorded What is your housing situation today? I have kenneth carlos 06/24/[address] you li ve. Do you have problems with any of the following? None of the above 06/24/2023 Food Insecurity Answer Date Recorded Within the past 12 months, y ou worried that your food would run out before you got money to buy more: Never True 06/24/2023 Within the past 12 months,th e food you bought just didn't last and you didn't have enough money to get more: Never True Transportation Answer Date Recorded In the past 12 months, has l ack of transportation kept you from medical appts, meetings, work or from getting things needed for daily living? No 06/24/2023 Utilities Answer Date Recorded In the past 12 months, has t he electric, gas, oil or water company threatened to shut off services in your home? No 06/24/2023 Depression Answer Date Recorded Patient Health Questionnaire-2 Score 1 10/08/2023 Comments Unknown Sex and Gender Information Value Date Recorded Sex Assigned at Female 07/09/2022 10:20 AM EDT Legal Sex Female 10:20 AM EDT Gender Identity Female 07/09/2022 10:20 AM EDT Sexual Orientation Straight 07/09/2022 10 :20 AM EDT documented as of this encounter Miscellaneous Notes * Telephone Encounter - Easton Stein - 04/10/2024 8:41 AM EDT TC from pt requesting medication refill. Medications needing refill : oxyCODONE-acetaminophen (Percocet) 5-325 MG tablet To be sent to: [facility] - [place], [place] - [address] [place] [address] documented in this encounter Plan of Treatment Upcoming Encounters Date Type Department Care Team ([facility] st Contact Info) Description 03/29/2025 10:30 AM EDT Telemedicine [facility] [address] [place] [address] Mayda Urbano, RN [address] [place] [address] documented as of this encounter Visit Diagnoses Not on filedocumented in this encounter Additional Health Concerns Assessment Noted Time PHQ-9 Depression Total Score: 4 10/08/19 24 11:57 AM EST documented as of this encounter Care Teams Gear Lapping Machine Operator Relationship Specialty Start Date End Date Claire Ibrahim MD [address] [place] [address] PCP - General Family Medicine 04/01/17 documented as of this encounter
== END 2025-03-02 08:30 | disposition home or self-care (01) ==
LOC: HO.HOS 08:03
PROVIDERS: PCP Pediatrics; Visit Provider Orthopaedic Surgery
DX: M25.512 Pain in left shoulder (principal)
CPT/HCPCS: 99213; G2211

== ENCOUNTER → 2025-03-02 08:02 | Outpatient (BNVA) | payer OTHER, SELFPAY | PROVIDERS: PCP Pediatrics; Visit Provider Orthopaedic Surgery | DX: M25.512 Pain in left shoulder (principal) | CPT/HCPCS: 99212 ==

== ENCOUNTER 2025-04-30 19:47 | Outpatient (REF) | payer OTHER, SELFPAY ==
--- NOTE | ~2025-04-30 | MR_ITS ---
CLINICAL HISTORY: DJD, STENOSIS, WORSENING RIGHT SIDE BACK PAIN MRI LUMBAR SPINE WITHOUT CONTRAST Comparison: None provided Findings: The vertebral bodies are in satisfactory alignment. No acute fracture or osseous marrow replacement process. Conus medullaris terminates at the appropriate level. T12-L1: Unremarkable. L1-2: Unremarkable. L2-3: Unremarkable. L3-4: Unremarkable. L4-5: No significant disc displacement or spinal stenosis. Facet arthropathy. Uuqy-ed-asukanoq right foraminal stenosis. Mild left foraminal stenosis. L5-S1: Mild disc bulge. Facet arthropathy. No significant spinal stenosis. Gkhm-hh-psqygnsl left foraminal stenosis. Probable tiny right renal cyst. Paraspinous muscles unremarkable. Impression: 1. Mild disc disease at L5-S1 with no significant spinal stenosis. 2. Facet arthropathy at L4-5 and L5-S1. Xouy-yi-wbkxsnxe right foraminal stenosis at L4-5. Xnaq-fz-adtiortb left foraminal stenosis at L5-S1. This document has been electronically signed by: Judy Alford DO on 05/03/2025 15:47:50
--- OUTSIDE RECORDS SUMMARY | 2025-04-30 19:50 | XMS_ITS | Clinical Summary ---
Author Organization [facility] Address [address] [place] [address] Phone Care Team Providers Care Jumbo Operator Name Role Phone Claire Ibrahim MD Primary Care Provider [phone] Encounters Date Type Department Care Team Description 04/21/2025 1:56 PM EDT - 04/21/2025 11:59 PM EDT Hospital Encounter [facility] Xray [address] [place] [phone] Pain in right foot Discharge Disposition: Home or Self Care from Last 3 Months Social History Tobacco Use Types Packs/Day Years Used Date Smoking Tobacco: Never Assessed Comments Unknown Sex and Gender Information Value Date Recorded Sex Assigned at Not on file Legal Sex Female 9:03 AM EDT Gender Identity Not on file Sexual Orientation Not on file Plan of Treatment Upcoming Encounters Date Type Department Care Team ([facility] st Contact Info) Description 05/17/2025 9:15 AM EDT Consult Orthopedic Surgery - [place] [address] [phone] Chema Valentine, DPM [address] [address] Health Maintenance Due Date Last Done Comments Breast Cancer Screening 1969 Cervical Cancer Screening: Pap Smear 1990 Pneumococcal Vaccine: 50+ Years (1 of 1 - PCV) 2019 Hepatitis B Vaccines (2 of 3 - 19+ 3-dose series) 06/13/2023 05/16/2023 DTaP,Tdap,and Td Vaccines (2 - Td or Tdap) 06/08/2024 06/08/2014 Depression Screening 09/09/2024 Colorectal Cancer Screening: Colonoscopy 03/08/2025 HIV Screening 03/08/2025 Hepatitis C Screening 03/08/2025 Medicare Annual Wellness Visit 03/08/2025 Osteoporosis Screening (Bone Density Screening) 03/08/2025 Social Influencers of Health Screening 03/08/2025 Hypertension/CHF/CAD Annual BMP Blood Test 04/22/2025 Influenza Vaccine (#1) 2025 , 05/30/2023, 06/08/2022, Additional history exists Cholesterol Screening (Lipid Panel) 07/08/2025 07/08/2020 Zoster Vaccines Completed 04/03/2022, 01/19/2022 COVID-19 Vaccine Completed 05/21/2024, , 06/28/2022, Additional history exists MMR Vaccines Aged Out 11/17/2024, 12/18/2018 No lo nger eligible based on patient's age to complete this topic HIB Vaccines Aged Out No longer eligi ble based on patient's age to complete this topic HPV Vaccines Aged Out No longer eligi ble based on patient's age to complete this topic Hepatitis A Vaccines Aged Out No long er eligible based on patient's age to complete this topic IPV Vaccines Aged Out No longer eligi ble based on patient's age to complete this topic Meningococcal ACWY Vaccine Aged Out N o longer eligible based on patient's age to complete this topic Meningococcal B Vaccine Aged Out No l onger eligible based on patient's age to complete this topic RSV Immunization Patients Under 20 months Aged Out No longer eligible based on patient's age to complete this topic Varicella Vaccines Aged Out No longer eligible based on patient's age to complete this topic Procedures Procedure Name Priority Date/Time Associated Diagnosis Comments XR FOOT 3+ VIEWS BILAT Routine 04/21/2025 2:14 PM EDT Pain in right foot from Last 3 Months Results * XR Foot 3+ Views bilat (04/21/2025 2:14 PM EDT) Anatomical Region Laterality Modality Lower Extremities, Foot Bilateral Radiogra phic Imaging 04/22/2025 8:11 AM EDT Impressions 04/22/2025 8:14 AM EDT 1. Normal examination of the right foot. 2. The left foot demonstrates a fracture of a sesamoid bone subjacent to the head of the first metatarsal. This is of uncertain chronicity and clinical correlation for pain in this area is recommended. Code 57726 -------- FINAL REPORT -------- Dictated By: Uriel Alegria Dictated Date: 04/22/2025 08:11 ET Assigned Physician: Uriel Alegria Reviewed and Electronically Signed By: Uriel Alegria Signed Date: 04/22/2025 08:14 ET Workstation ID: [id number] Transcribed By: Self Edit Transcribed Date: 04/22/2025 08:11 ET Narrative 04/22/2025 8:14 AM EDT HISTORY: The patient is a 54-year-old female with bilateral foot pain. FINDINGS: AP, lateral, and oblique views of the right foot, along with AP, lateral, and oblique views of the left foot, are obtained. In the right foot, there is no fracture, dislocation, arthritic change, or other bony abnormality. No soft tissue abnormality is seen. In the left foot, there appears to be a nondisplaced fracture of a sesamoid bone subjacent to the head of the first metatarsal, of unknown chronicity. No other fracture is seen and there is no dislocation, arthritic change, or other bony abnormality. No soft tissue abnormality is seen. Procedure Note Uriel Alegria MD - 04/22/2025 HISTORY: The patient is a 54-year-old female with bilateral foot pain. FINDINGS: AP, lateral, and oblique views of the right foot, along with AP,lateral, and oblique views of the left foot, are obtained. In the rightfoot, there is no fracture, dislocation, arthritic change, or other bonyabnormality. No soft tissue abnormality is seen. In the left foot, there appears to be a nondisplaced fracture of asesamoid bone subjacent to the head of the first metatarsal, of unknownchronicity. No other fracture is seen and there is no dislocation,arthritic change, or other bony abnormality. No soft tissue abnormality isseen. IMPRESSION: 1. Normal examination of the right foot. 2. The left foot demonstrates a fracture of a sesamoid bone subjacent tothe head of the first metatarsal. This is of uncertain chronicity andclinical correlation for pain in this area is recommended. Code 96686 -------- FINAL REPORT -------- Dictated By: Uriel Alegria Dictated Date: 04/22/2025 08:11 ET Assigned Physician: Uriel Alegria Reviewed and Electronically Signed By: Uriel Alegria Signed Date: 04/22/2025 08:14 ET Workstation ID: [id number] Transcribed By: Self Edit Transcribed Date: 04/22/2025 08:11 ET us Claire Ibrahim MD IMG XR PROCEDURES Final Resul t from Last 3 Months Insurance , [address] [place], [place] [id number] [employer] MED[employer] Member Subscriber Plan / Payer (Ef fective 2017-Present) Name:GENET FIGUEROA Relation to Subscriber:Self Name:Genet Figueroa Payer ID:[id number] Group ID:[id number] Type:Not on file Address: [place] [address] [address] [id number] Care Teams Jumbo Operator Relationship Specialty Start Date End Date Claire Ibrahim MD [address] [place] [address] PCP - General Internal Medicine 03/08/25
== END 2025-04-30 19:48 | disposition home or self-care (01) ==
LOC: HO.MRI 19:47
PROVIDERS: Visit Provider Pediatrics
DX: R93.7 Abnormal findings on diagnostic imaging of other parts of musculoskeletal system (principal)
CPT/HCPCS: 72148

== ENCOUNTER → 2025-04-30 19:56 | Outpatient (BNV) | payer OTHER, SELFPAY | PROVIDERS: Visit Provider Radiology Diagnostic Radiology | DX: M47.816 Spondylosis without myelopathy or radiculopathy, lumbar region (principal); M48.061 Spinal stenosis, lumbar region without neurogenic claudication | CPT/HCPCS: 72148 ==

== ENCOUNTER 2025-05-25 10:07 | Outpatient (RCR) | payer OTHER, SELFPAY | END 2025-06-23 10:42 | disposition home or self-care (01) | LOC: HO.PTCHIC 10:07 | PROVIDERS: PCP Pediatrics; Visit Provider Family Medicine | DX: M79.651 Pain in right thigh (principal) | CPT/HCPCS: 97110; 97161 ==

== ENCOUNTER 2025-08-17 08:46 | Outpatient (REF) | payer OTHER, SELFPAY ==
--- NOTE | ~2025-08-17 | MM_ITS ---
EXAMINATION: MM SCREENING DIGITAL BREAST TOMOSYNTHESIS, BILATERAL CLINICAL INFORMATION: Screening. Asymptomatic. COMPARISON: Mammography: Comparison is made with available priors TECHNIQUE: Digital breast mammography with tomosynthesis is performed in both the craniocaudal and mediolateral oblique views along with computer-aided detection (CAD). FINDINGS: There are scattered areas of fibroglandular density. There are no significant masses, abnormal calcifications, or other abnormalities. MM/MM tomosynthesis screening BI IMPRESSION: No mammographic evidence of malignancy. ASSESSMENT: BI-RADS Category 1: Negative RECOMMENDATION: Routine annual mammography screening. 1 year F/U This examination should not preclude the clinical evaluation of a suspicious palpable abnormality. This patient's information was entered into a reminder system with a target due date for their next mammogram. Electronically signed by: Radha Lei DO 08/19/2025 11:40 AM [facility]
== END 2025-08-17 08:47 | disposition home or self-care (01) ==
LOC: HO.MAMMO 08:46
PROVIDERS: PCP Pediatrics; Visit Provider Pediatrics
DX: Z12.31 Encounter for screening mammogram for malignant neoplasm of breast (principal)
CPT/HCPCS: 77063; 77067

== ENCOUNTER → 2025-08-17 09:45 | Outpatient (BNV) | payer OTHER, SELFPAY | PROVIDERS: PCP Pediatrics; Visit Provider Internal Medicine | DX: Z12.31 Encounter for screening mammogram for malignant neoplasm of breast (principal) | CPT/HCPCS: 77063; 77067 ==